=== PATIENT | male | born 1940 | race Caucasian/White ===

== ENCOUNTER 2019-10-16 18:33 | Inpatient (IN) | payer MEDICARE, SELFPAY | END 2019-10-18 18:35 | disposition home or self-care (01) | DRG 193 | PROVIDERS: Admitting Provider Internal Medicine; Emergency Provider Emergency Medicine; Family Provider Family Medicine; Visit Provider Internal Medicine | DX: J18.9 Pneumonia, unspecified organism (principal); G93.41 Metabolic encephalopathy; I10 Essential (primary) hypertension; E03.9 Hypothyroidism, unspecified; I25.10 Atherosclerotic heart disease of native coronary artery without angina pectoris; E78.5 Hyperlipidemia, unspecified; I25.2 Old myocardial infarction ==

== ENCOUNTER 2020-09-21 11:04 | Emergency (ER) | payer OTHER, MEDICARE, SELFPAY ==
[2020-09-21 11:15] VITALS: BP 128/85; PULSE 71; RESP 18; TEMP 36.2; O2SAT 95; BMI 26.4
--- NOTE | 2020-09-21 11:21 | W.ED.SKABFB ---
HPI - Skin/Abscess/Foreign Bdy General: Chief complaint: Skin/Abscess/Foreign Body Stated complaint: Left Hand Wound/Poss Spider Bite Time Seen by Provider: 09/21/20 11:21 Source: patient Mode of arrival: ambulatory Limitations: no limitations History of Present Illness: HPI narrative: Patient comes in with a crusting lesion to the left dorsal hand. Patient states that this occurred about 4 days ago. Patient had been seen at a clinic and started on some antibiotics. Patient reports that he went and seen the provider yesterday due to worsening symptoms to his hand at the area of injury and was switched from the previous antibiotics to doxycycline 100 mg twice a day. Patient denies much pain. Patient has good range of motion of the hand. Patient reports no other concerns. Patient believes he was bit by a spider. 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 Review of Systems General: Reports: 10 or more systems reviewed and unremarkable except in HPI and below Skin/Breast: Reports: changing lesions Physical Exam Const: COMMON NORMALS: no acute distress and patient oriented x3 GENERAL APPEARANCE: cooperative HENMT: COMMON NORMALS: normocephalic and Normal external nose present HEAD & SCALP: normal to inspection and normocephalic NOSE: Normal external nose present MOUTH: Normal oral and palatal mucosa present Eye: GENERAL EYE: appearance normal, both eyes and all related structures Neck/C-Spine: COMMON NORMALS: full ROM Chest: COMMONS NORMALS: normal inspection of the chest Resp: COMMON NORMALS: normal respiratory effort EFFORT & INSPECTION: Yes able to speak in complete sentences Cardio: COMMON NORMALS: regular rate and regular rhythm RATE: regular rate RHYTHM: regular rhythm GI: COMMON NORMALS: non-tender : COMMON NORMALS: Yes no CVA tenderness BLADDER/KIDNEY EXAM: Yes no CVA tenderness Back/Pelvis: COMMON NORMALS: no CVA tenderness and thoracic and lumbar spine normal to inspection Extremity: COMMON NORMALS: normal to inspection Neuro: COMMON NORMALS: patient oriented x3 and moves all extremities Psych: COMMON NORMALS: mental status grossly normal and cooperative Skin: NARRATIVE SKIN EXAM: Patient has a lesion to his left dorsal hand that is approximately 4 cm. Central lesion is dry and crusted with the edges slightly elevated with a vesicular eruption. Course Vital Signs: Vital signs: Vital Signs Temperature 97.2 F L 09/21/20 11:15 Pulse Rate 71 09/21/20 11:15 Respiratory Rate 18 09/21/20 11:15 Blood Pressure 128/85 09/21/20 11:15 Pulse Oximetry 95 09/21/20 11:15 MDM - Skin/Abscess/Foreign Bdy MDM Narrative: Medical decision making narrative: Patient presents with a changing lesion to the left dorsal hand. Is a poor centimeter crusted lesion with surrounding vesicular eruption. Vital signs are normal. Differential diagnosis includes but not limited to osteomyelitis, cellulitis with abscess, herpes zoster, herpes simplex, foreign body, contact dermatitis, localized reaction to insect bite. X-ray of the hand noted no bone involvement. Pretty sure patient probably has a brown recluse spider bite. We will give the patient some triamcinolone to use twice a day to the wound site. Recommended patient continue with the doxycycline. Discussed that the wound will probably most likely have to run its course recommended follow-up with seed and fertilizer specialist for further management. Patient reported understanding of care plan and need for follow-up. Discharge Plan Discharge Patient Disposition: Home Clinical Impression: Insect bite Qualifiers: Encounter type: subsequent encounter Site of insect bite: hand Laterality: left Qualified Code(s): S60.562D - Insect bite (nonvenomous) of left hand, subsequent encounter Condition: Stable Prescriptions: New triamcinolone acetonide 0.1 % cream 1 applic topical BID Qty: 30 RF: 0 Discharge Orders: Discharge ED (Routine); Ordered 09/21/20 Ordered By: Lee Almonte Referrals: Satya Bright MD [Primary Care Provider] - Patient Instructions: Brown Recluse Spider Bite (ED) Activity Restrictions/Additional Instructions: Follow-up with wound care for further treatment. Return to the emergency department for high fever or new concerns. Coding Level of Care Code ED Framing Inspector for Dorian Fwcesar Exam Comprehensive
--- NOTE | 2020-09-21 11:30 | XR_ITS ---
WS: [id number] Left hand, 4 views, 09/21/2020 Clinical Data: r/o osteomyelitis Comparison: None. Findings: No fractures or dislocations are seen. The soft tissues are unremarkable. The joint spaces are normal No bone destruction or erosion is seen. No evidence of osteomyelitis is present. There are periarticu lar calcifications seen at the left second MP joint, left third PIP joint and left fourth DIP joint XR/XR hand LT min 3V* [id number] Impression: Negative for osteomyelitis.
[2020-09-21 12:14] VITALS: RESP 18
--- NOTE | 2020-09-22 09:54 | DCPLANNER ---
manager of community relations had message to schedule a follow up appointment for patient with Wound Care. manager of community relations called Wound Care, spoke with Oly, gave clinic patients information. A follow up appointment was scheduled for Saturday, September 26, 2020 at 8:[address] Cotto. manager of community relations called patient and informed patient of the scheduled appointment.
--- NOTE | 2020-10-03 15:34 | DCPLANNER ---
Patient had a follow up appointment scheduled for 09.26.[address] Cotto - appointment was cancelled.
--- NOTE | 2020-10-03 15:41 | DCPLANNER ---
Patient had a follow up appointment scheduled for 09.26.20 with Wound Care - patient did attend appointment.
== END 2020-09-21 12:14 | disposition home or self-care (01) ==
PROVIDERS: Emergency Provider Nurse Practitioner Family; PCP Family Medicine
DX: S60.562A Insect bite (nonvenomous) of left hand, initial encounter (principal); W57.XXXA Bitten or stung by nonvenomous insect and other nonvenomous arthropods, initial encounter
CPT/HCPCS: 12345; 73130; 99281; 99282

== ENCOUNTER 2020-09-26 08:15 | Outpatient (CLI) | payer MEDICARE, SELFPAY | END 2020-09-26 08:16 | disposition home or self-care (01) | LOC: WOUND 08:17 | PROVIDERS: PCP Family Medicine; Visit Provider Thoracic Surgery (Cardiothoracic Vascular Surgery) | DX: L98.492 Non-pressure chronic ulcer of skin of other sites with fat layer exposed (principal) | CPT/HCPCS: 11042; 11045; 99212 ==

== ENCOUNTER 2020-10-03 14:31 | Emergency (ER) | payer MEDICARE, SELFPAY ==
[2020-10-03 14:45] VITALS: BP 80/52; PULSE 73; RESP 22; TEMP 36.5; O2SAT 95; BMI 26.4
--- NOTE | 2020-10-03 15:11 | XR_ITS ---
WS: [id number] XR chest 1V portable [id number] REASON FOR EXAM: dyspnea/cough FINDINGS: Status post coronary artery bypass surgery. Thoracic aorta and heart are normal for age. Old epicardial pacing wires. Ill-defined left retrocardiac lung opacities which may indicate early findings of pneumonitis. XR/XR chest 1V portable [id number] IMPRESSION: Possible early infiltrates of acute pneumonitis left lung as above.
--- NOTE | 2020-10-03 15:12 | ECG_ITS ---
[facility] Test Date: 2020-10-03 Pat Name: Kenneth Li Department: Room: Gender: Male Head Packager: : 1940 Requested By: Ivan Lee Order Number: [id number] Gricel MD: Brigette Marquez M.D. Measurements Intervals [place] Rate: 79 P: 38 MT: 170 QRS: 19 QRSD: 145 T: 65 QT: 400 QTc: 460 Interpretive Statements SINUS RHYTHM RIGHT BUNDLE BRANCH BLOCK [120+ ms QRS DURATION, UPRIGHT V1, 40+ ms S IN I/aVL/V4/V5/V6] Compared to ECG 10/17/2019 01:10:24 Myocardial infarct finding no longer present Electronically Signed On 10-03-2020 19:26:25 FINAL OPERATIONS TECHNICIAN by Brigette Marquez M.D. [id number]
[2020-10-03 15:24] LABS: Basophils % 0.3 %; Hematocrit 42.4 % (42.0-52.0); Hemoglobin 13.5 g/dL (11.7-16.6); Lymphocytes # 1.5 10^3/uL (0.8-4.8); Lymphocytes % 23.9 %; Mean Corpuscular HGB Conc 31.8 g/dL (30.0-36.0); Mean Corpuscular Hemoglobin 29.9 pg (28.0-34.0); Mean Corpuscular Volume 93.8 fL (80-94); Mean Platelet Volume 11.7 fL (7.4-10.4); Monocytes # 0.5 10^3/uL (0.2-0.9); Monocytes % 7.6 %; Neutrophils # 4.18 10^3/uL (1.8-7.7); Nucleated Red Blood Cells % 0 %; Platelet Count 159 10^3/cmm (130-400); Red Blood Count 4.52 10^6/uL (4.1-5.3); Red Cell Distribution Width 14.6 % (12.1-15.1); White Blood Count 6.2 10^3/uL (4.0-10.0)
[2020-10-03 15:35] LABS: Alanine Aminotransferase 32 U/L (0-41); Albumin Level 3.7 g/dL (3.5-5.2); Alkaline Phosphatase 143 IU/L (40-130); Anion Gap 14.6 (5-19); Aspartate Amino Transferase 48 U/L (0-40); Blood Urea Nitrogen 35 mg/dL (8-23); Calcium 9.4 mg/dL (8.5-10.5); Carbon Dioxide 28 mmol/L (22-29); Chloride 99 mmol/L (98-107); Globulin 3.5 g/dL (1.3-4.6); Glucose 108 mg/dL (65-115); Osmolality Calculated 293 mOsm/kg (285-295); Potassium 4.6 mmol/L (3.5-5.1); Sodium 137 mmol/L (136-145); Total Bilirubin 0.6 mg/dL (0.15-1.2); Total Protein 7.2 g/dL (6.6-8.7)
--- NOTE | 2020-10-03 15:36 | ED_ITS ---
HPI - SOB/Dyspnea General: Chief Complaint: Shortness of Breath/Dyspnea Stated Complaint: Chills/Poss Pneumonia Time Seen by Provider: 10/03/20 14:58 History of Present Illness: HPI Narrative: 80-year-old male presents emergency room. A little bit difficult to get pin down. He said for last 2 days he just generally not been feeling well he states he been going through a lot of things he begins to tell a story about his wood furnace about being dizzy when he bends over but that has completely resolved he denies chest pain he states the dizziness and the generally not feeling well has made him very depressed. He denies any abdominal pain denies any vomiting or diarrhea. Shortness of breath seems persistent says he has a minimally productive cough of mostly clear sputum. MD elicited complaint: shortness of breath and cough Pertinent past history: COPD Onset (ago): week(s) Context: anxiety Exacerbating factors: exertion and coughing Relieving factors: rest Known history of: COPD Associated symptoms: Reports chest congestion; Deny abdominal pain, chest pain, cough, diaphoresis, dizziness, extremity pain, fever(s), hemoptysis, lightheadedness, myalgias, nausea, orthopnea, palpitations, paresthesias, polydipsia, polyuria, rash or sense of impending doom Treatment prior to arrival: none Review of Systems Const: Denies: fever(s) or diaphoresis ENMT: Denies: throat pain, ear or mastoid pain, nasal discharge or nasal congestion Card: Denies: chest pain, palpitations, lightheadedness or orthopnea Resp: Reports: chest congestion; Denies: hemoptysis GI: Denies: abdominal pain or nausea : Denies: flank pain, dysuria, urinary frequency or urinary urgency Musc: Denies: extremity pain Skin/Breast: Denies: rash or pruritus Neuro: Denies: dizziness Endo: Denies: polyuria or polydipsia Physical Exam Const: COMMON NORMALS: no acute distress GENERAL APPEARANCE: cooperative and comfortable ORIENTATION/CONSCIOUSNESS: Yes awake, Yes oriented to person, Yes oriented to place and Yes oriented to time HENMT: COMMON NORMALS: normocephalic, atraumatic and hearing grossly normal bilaterally HEAD & SCALP: normocephalic and atraumatic Neck/C-Spine: COMMON NORMALS: no JVD Resp: COMMON NORMALS: normal respiratory effort, No retractions, No use of accessory muscles and clear to auscultation bilaterally AUSCULTATION: clear to auscultation bilaterally Cardio: COMMON NORMALS: no JVD, regular rate, regular rhythm and No murmurs present (Cardio) RATE: regular rate RHYTHM: regular rhythm GI: COMMON NORMALS: Soft to palpation and No hepatosplenomegaly present AUSCULTATION: Yes normoactive bowel sounds PALPATION: Yes Soft to palpation, No Tenderness to palpation present (GI), No Guarding due to palpation present (GI) and Yes No hepatosplenomegaly present Extremity: COMMON NORMALS: normal to inspection, capillary refill normal, no clubbing, cyanosis or edema, no calf tenderness and no pedal edema Neuro: SENSORIUM/ORIENTATION: Yes oriented to person, Yes oriented to place and Yes oriented to time Skin: COMMON NORMALS: no rashes or lesions noted GENERAL SKIN EXAM: no rashes or lesions noted Course Vital Signs: Vital signs: Vital Signs Temperature 97.7 F 10/03/20 14:45 Pulse Rate 73 10/03/20 14:45 Respiratory Rate 22 H 10/03/20 14:45 Blood Pressure 80/52 10/03/20 14:45 Pulse Oximetry 95 10/03/20 14:45 MDM - SOB/Dyspnea MDM Narrative: Medical decision making narrative: Patient Covid positive but faring very well he is only at most 2 to 4 days into his symptom course. Discussed with him monoclonal antibody infusion he wishes to proceed consent obtained discharge orders have been written he should monitor his oxygen saturation and follow-up tomorrow with his primary care doctor on a telehealth visit. If he has any worsening problems or difficulty breathing or his oxygen sats below fall below 90 return to the emergency room. Lab Data: Labs: Lab Results 10/03/20 10/03/20 10/03/20 Range/Units 15:08 15:08 15:34 WBC 6.2 (4.0-10.0) 10^3/ uL RBC 4.52 (4.1-5.3) 10^6/u L Hgb 13.5 (11.7-16.6) g/dL Hct 42.4 (42.0-52.0) % MCV 93.8 (80-94) fL MCH 29.9 (28.0-34.0) pg MCHC 31.8 (30.0-36.0) g/dL RDW 14.6 (12.1-15.1) % Plt Count 159 (130-400) 10^3/c mm MPV 11.7 H (7.4-10.4) fL Neut % (Auto) 68.0 % Lymph % (Auto) 23.9 % Taylor % (Auto) 7.6 % Eos % (Auto) 0.0 % Baso % (Auto) 0.3 % Neut # (Auto) 4.18 (1.8-7.7) 10^3/u L Lymph # (Auto) 1.5 (0.8-4.8) 10^3/u L Taylor # (Auto) 0.5 (0.2-0.9) 10^3/u L Eos # (Auto) 0.0 (0.0-0.8) 10^3/u L Baso # (Auto) 0.0 (0.0-0.1) 10^3/u L Nucleated RBC % (a uto) 0 % Nucleated RBCs # 0.0 /100WBC Specimen Type Arterial Sample Site Radial, right ABG pH 7.38 (7.35-7.45) ABG pCO2 40.3 (35-45) mmHg ABG pO2 66.4 L (80.0-100.0) mmH g ABG HCO3 24.1 (22-26) mmol/L ABG O2 Saturation 93.3 ABG Base Excess -1.0 (-2.0-2.0) mmol/ L Marcus Test Pos A-a O2 Gradient 4.3 L (5-10) mmHg Hematocrit 41.4 L (42-52) % Hgb O2 Saturation 91.7 L (95-100) % Carboxyhemoglobin 0.9 (0.4-20.1) %THgb Methemoglobin 0.8 (0.4-1.5) % Total Hemoglobin 13.5 L (14-18) g/dL Ionized Calcium 1.2 (1.1-1.4) mmol/L O2 Delivery Device Room air FiO2 21.0 % Federal Mediation Commissioner ID Amh Sodium 137 136.0 (136-145) mmol/L Potassium 4.6 4.2 (3.5-5.1) mmol/L Chloride 99 (98-107) mmol/L Carbon Dioxide 28 (22-29) mmol/L Anion Gap 14.6 (5-19) BUN 35 H (8-23) mg/dL Creatinine 1.6 H (0.7-1.2) mg/dL GFR Calculation Not Reportable Glucose 108 107.0 (65-115) mg/dL Calculated Osmolal ity 293 (285-295) mOsm/k g Calcium 9.4 (8.5-10.5) mg/dL Total Bilirubin 0.6 (0.15-1.2) mg/dL AST 48 H (0-40) U/L ALT 32 (0-41) U/L Alkaline Phosphata se 143 H (40-130) IU/L Total Protein 7.2 (6.6-8.7) g/dL Albumin 3.7 (3.5-5.2) g/dL Globulin 3.5 (1.3-4.6) g/dL Urine Color (Yellow) Urine Appearance (CLEAR) Urine pH (5-7) Ur Specific Gravit y (1.005-1.030) Urine Protein (Negative) Urine Glucose (UA) (Normal) Urine Ketones (Negative) Urine Blood (Negative) Urine Nitrate (Negative) Urine Bilirubin (Negative) Urine Urobilinogen (Negative) mg/dL Ur Leukocyte Tianna ase (Negative) Urine RBC (0-2) /hpf Ur Squamous Epith Cells (0-5) /hpf Amorphous Sediment Urine Bacteria (NONE) /hpf Hyaline Casts /lpf Urine Mucus /hpf SARS-CoV-2 Ag (Rap id) (Negative) 10/03/20 10/03/20 Range/Units 16:00 16:30 WBC (4.0-10.0) 10^3/ uL RBC (4.1-5.3) 10^6/u L Hgb (11.7-16.6) g/dL Hct (42.0-52.0) % MCV (80-94) fL MCH (28.0-34.0) pg MCHC (30.0-36.0) g/dL RDW (12.1-15.1) % Plt Count (130-400) 10^3/c mm MPV (7.4-10.4) fL Neut % (Auto) % Lymph % (Auto) % Taylor % (Auto) % Eos % (Auto) % Baso % (Auto) % Neut # (Auto) (1.8-7.7) 10^3/u L Lymph # (Auto) (0.8-4.8) 10^3/u L Taylor # (Auto) (0.2-0.9) 10^3/u L Eos # (Auto) (0.0-0.8) 10^3/u L Baso # (Auto) (0.0-0.1) 10^3/u L Nucleated RBC % (a uto) % Nucleated RBCs # /100WBC Specimen Type Sample Site ABG pH (7.35-7.45) ABG pCO2 (35-45) mmHg ABG pO2 (80.0-100.0) mmH g ABG HCO3 (22-26) mmol/L ABG O2 Saturation ABG Base Excess (-2.0-2.0) mmol/ L Marcus Test A-a O2 Gradient (5-10) mmHg Hematocrit (42-52) % Hgb O2 Saturation (95-100) % Carboxyhemoglobin (0.4-20.1) %THgb Methemoglobin (0.4-1.5) % Total Hemoglobin (14-18) g/dL Ionized Calcium (1.1-1.4) mmol/L O2 Delivery Device FiO2 % Federal Mediation Commissioner ID Sodium (136-145) mmol/L Potassium (3.5-5.1) mmol/L Chloride (98-107) mmol/L Carbon Dioxide (22-29) mmol/L Anion Gap (5-19) BUN (8-23) mg/dL Creatinine (0.7-1.2) mg/dL GFR Calculation Glucose (65-115) mg/dL Calculated Osmolal ity (285-295) mOsm/k g Calcium (8.5-10.5) mg/dL Total Bilirubin (0.15-1.2) mg/dL AST (0-40) U/L ALT (0-41) U/L Alkaline Phosphata se (40-130) IU/L Total Protein (6.6-8.7) g/dL Albumin (3.5-5.2) g/dL Globulin (1.3-4.6) g/dL Urine Color Dark yellow (Yellow) Urine Appearance Hazy A (CLEAR) Urine pH 5 (5-7) Ur Specific Gravit y 1.030 (1.005-1.030) Urine Protein Neg (Negative) Urine Glucose (UA) Norm (Normal) Urine Ketones 1+ H (Negative) Urine Blood Neg (Negative) Urine Nitrate Negative (Negative) Urine Bilirubin Neg (Negative) Urine Urobilinogen Norm (Negative) mg/dL Ur Leukocyte Tianna ase Negative (Negative) Urine RBC 0-4 H (0-2) /hpf Ur Squamous Epith Cells 0-4 H (0-5) /hpf Amorphous Sediment Not Reportable Urine Bacteria 2+ H (NONE) /hpf Hyaline Casts >100 H /lpf Urine Mucus 3+ /hpf SARS-CoV-2 Ag (Rap id) Positive H (Negative) Discharge Plan Discharge Patient Disposition: Home Clinical Impression: COVID-19 Condition: Stable Prescriptions: No Action atorvastatin 40 mg tablet 40 mg PO DAILY@0700 RF: 0 doxycycline hyclate 100 mg capsule 100 mg PO DAILY@0700 RF: 0 hydrocodone-acetaminophen 5-325 mg tablet 1 tab PO Q6H PRN (Reason: Pain) RF: 0 venlafaxine 150 mg capsule,extended release 24hr 150 mg PO DAILY@0700 RF: 0 levothyroxine 25 mcg tablet 25 mcg PO DAILY@0700 RF: 0 losartan 25 mg tablet 25 mg PO DAILY@0700 RF: 0 metoprolol tartrate 25 mg tablet 25 mg PO DAILY@0700 RF: 0 triamcinolone acetonide 0.1 % cream 1 applic topical BID@0700,1400 RF: 0 Discharge Orders: Discharge ED (Routine); Ordered 10/03/20 Ordered By: Ivan Gil Referrals: Satya Bright MD [Primary Care Provider] - Discharge Diet: Usual diet Activity Restrictions/Additional Instructions: Follow-up by telehealth visit with your primary care doctor tomorrow. You should maintain in self quarantine for 10 more days. Monitor your oxygen saturations closely, if they drop below 90 return to the emergency room. Coding Level of Care Code ED Siebel Architect for Dorian Fwd Exam Comprehensive
[2020-10-03 15:45] LABS: ABG PCO2 40.3 mmHg (35-45); ABG PH Result 7.38 (7.35-7.45); Alveolar-Arterial Oxygen Gradi 4.3 mmHg (5-10); Arterial Blood Gas Hematocrit 41.4 % (42-52); Blood Gas Allen Test Pos; Blood Gas Operator Identificat AMH; Blood Gas Sample Site Radial, right; Blood Gas Sample Type Arterial; Carboxyhemoglobin 0.9 %THgb (0.4-20.1); HCO3 ABG 24.1 mmol/L (22-26); HGB O2 Sat 91.7 % (95-100); Ionized Calcium Level - ABG 1.2 mmol/L (1.1-1.4); Methemoglobin 0.8 % (0.4-1.5); Oxygen Device ROOM AIR; Oxygen Saturation ABG 93.3; PO2 ABG 66.4 mmHg (80.0-100.0); Potassium Level - ABG 4.2 mmol/L (3.5-5.0); Total Hemoglobin 13.5 g/dL (14-18)
[2020-10-03] MEDS: sodium chloride 0.9% 1,000 ML 999 ML IV (16:23)
[2020-10-03 16:52] LABS: Add Urine Microscopic? YES; Bilirubin Urine Neg (Negative); Blood Urine Neg (Negative); Glucose Urine UA Norm (Normal); Ketones Urine 1+ (Negative); Leukocyte Esterase Urine Negative (Negative); Nitrate Urine Negative (Negative); Protein Urine Neg (Negative); Urine Appearance Hazy (CLEAR); Urine Color Dark Yellow (Yellow); Urobilinogen Urine Norm (Negative); pH Urine 5 (5-7)
[2020-10-03 16:58] LABS: Add Urine Culture? No; Bacteria Urine 2+ /hpf; Hyaline Casts Urine >100 /lpf; Mucus Urine 3+ /hpf; RBC Urine 0-4 /hpf (0-2); Squamous Epithelial Cell Urine 0-4 /hpf (0-5)
[2020-10-03 16:59] LABS: SARS Covid-2 Antigen Positive (Negative)
[2020-10-03 18:45] VITALS: BP 109/71; PULSE 74; RESP 20; O2SAT 95
[2020-10-03 19:00] VITALS: BP 122/64; PULSE 73; RESP 18; O2SAT 94
[2020-10-03 19:57] VITALS: BP 135/72; PULSE 78; RESP 18; TEMP 36.8; O2SAT 95
[2020-10-03 21:04] VITALS: BP 122/63; PULSE 75; RESP 16; O2SAT 92
[2020-10-03 21:40] VITALS: BP 118/63; PULSE 78; RESP 18; O2SAT 92
--- NOTE | 2020-10-04 13:59 | DCPLANNER ---
Addendum entered by Jalyn Chaves 10/17/20 14:06: salary manager called to check on patient after the BAM infusion. Patient stated that he is feeling much better, he is feeling pretty good. Patient stated that he is still tired and weak. Patient has a follow up appointment with Dr. Bright later today. Patient has not been admitted to any hospital. Addendum entered by Jalyn Chaves 10/09/20 13:50: Patient stated that she is feeling better today than yesterday. Patient stated that she does not have a cough, no fever, no diarrhea. Patient stated that overall he is feeling much better than before. Original Note: salary manager had message that patient received the BAM infusion. salary manager called patient to check on him, spoke with patients . salary manager was told that patient tolerated the infusion well. That before the infusion patient had a slight fever, he had a cough and was coughing up stuff. Patients stated that patient was weak, and that he had a hard time breathing. After the infusion patient stated that he had diarrhea some. Patient stated that he feels about the same as he was before. He is not running a fever at this time. Patient has a follow up appointment scheduled for Saturday, October 17, 2020 at 3:[address] Bright. salary manager called and gave patients the appointment information.
== END 2020-10-03 21:41 | disposition home or self-care (01) ==
PROVIDERS: Emergency Provider Family Medicine; PCP Family Medicine
DX: U07.1 COVID-19 (principal)
CPT/HCPCS: 12345; 36600; 71045; 80051; 80053; 81001; 82330; 82805; 83605; 85025; 87040; 87205; 87426; 93005; 96365; 99282; 99283; J7030; J7050

== ENCOUNTER 2020-12-27 09:07 | Outpatient (CLI) | payer MEDICARE, SELFPAY ==
--- NOTE | 2020-12-27 09:19 | CT_ITS ---
WS: [id number] CT HEAD WITH AND WITHOUT CONTRAST HISTORY: VISUAL HALLUCINATIONS TECHNIQUE: Noncontrast 2.5 mm axial images obtained from the vertex to the skull base. Additional fatuma ging performed at 2.5 mm axial images status post IV contrast. Bone and soft tissue windows are revie wed. All CT scans at [facility] use at least one of these dose optimization techniques: a utomated exposure control; mA and/or kV adjustment per patient size (includes targeted exams where do se is matched to clinical indication); or iterative reconstruction. CONTRAST: Omnipaque 300; 95 mL IV. DLP: 1851.82 mGycm COMPARISON: 10/16/2019 No acute intracranial hemorrhage, edema or midline shift. Mild atrophy and mild chronic microvascular ischemic disease. No prior infarcts or lacunar lungs. No enhancing mass or vascular malformation is appreciated. Dural venous sinuses are normally enhancing. 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 LEFT vertebral artery is patent. Heavy calcification through the intracranial cavernous and suprac linoid carotid arteries. No occlusions or aneurysms are identified. Paranasal sinuses as visualized: Clear. Mastoid air cells: Clear. Calvarium and scalp: Intact. CT/CT head wo/w con [id number] IMPRESSION: 1. No acute intracranial hemorrhage or mass. 2. Mild age-related atrophy and chronic ischemic disease. No prior infarcts. 3. Advanced atherosclerosis intracranial carotid arteries.
[2020-12-27 10:04] LABS: Blood Urea Nitrogen 10 mg/dL (8-23)
[2020-12-27] MEDS: iohexol 300 mg/mL 100 mL Btl IV (10:15)
== END 2020-12-27 09:08 | disposition home or self-care (01) ==
PROVIDERS: PCP Family Medicine; Visit Provider Family Medicine
DX: R44.1 Visual hallucinations (principal); I67.82 Cerebral ischemia; G31.9 Degenerative disease of nervous system, unspecified; I65.23 Occlusion and stenosis of bilateral carotid arteries
CPT/HCPCS: 70470; 82565; 84520; Q9967

== ENCOUNTER 2021-08-25 13:23 | Emergency (ER) | payer MEDICARE, SELFPAY ==
[2021-08-25 13:31] VITALS: BP 122/71; PULSE 68; RESP 16; TEMP 36.5; O2SAT 98
--- NOTE | 2021-08-25 13:34 | W.ED.WOUNDLC ---
HPI - Wound/Laceration General: Chief Complaint: Wound/Laceration Stated Complaint: ABSCESS TO L MIDDLE FINGER Time Seen by Provider: 08/25/21 13:26 History of Present Illness: HPI narrative: Patient is a 81-year-old male comes to the ED with pain in left hand. Patient has a lesion on the dorsal aspect of third digit. Patient says 2 days ago it was small little puncture wound. Over the past 2 days it has gotten bigger, more red and now there is some tissue breakdown in the center of it along with some drainage. Patient says he had a similar wound like this before and it was from a spider bite. He thinks a spider rash possibly what caused this lesion. He has mild pain and he saw his PCP yesterday and was put on some cephalexin. Wound is gotten worse yesterday. He has been taking his cephalexin as prescribed and has taken about a daily dose of his antibiotic. Associated symptoms: Denies chills, fever(s), nausea or vomiting Review of Systems Const: Denies: fever(s), chills or fatigue Eyes: Denies: change in vision or eye discomfort ENMT: Denies: throat pain, odynophagia, nasal discharge or nasal congestion Card: Denies: chest pain, palpitations, edema, swelling of feet/ankles, dyspnea on exertion or orthopnea Resp: Denies: dyspnea, productive cough or non-productive cough GI: Denies: abdominal pain, nausea, vomiting, diarrhea, constipation or hematochezia : Denies: flank pain, difficulty urinating, dysuria or hematuria Musc: Denies: neck pain, back pain or extremity swelling Skin/Breast: Reports: new lesions (new lesion/wound on 3rd digit of left hand); Denies: rash Neuro: Denies: headache(s), numbness in extremities or weakness in extremities Physical Exam Const: COMMON NORMALS: no acute distress, patient oriented x3, healthy appearing and alert GENERAL APPEARANCE: cooperative and comfortable HENMT: COMMON NORMALS: normocephalic HEAD & SCALP: normocephalic MOUTH: Normal oral and palatal mucosa present THROAT: posterior oropharynx normal and uvula midline Neck/C-Spine: COMMON NORMALS: supple GENERAL: Yes normal visual inspection Resp: COMMON NORMALS: normal respiratory effort, No retractions, No use of accessory muscles and clear to auscultation bilaterally AUSCULTATION: clear to auscultation bilaterally Cardio: COMMON NORMALS: regular rate, regular rhythm, S1 normal heart sound present, S2 normal heart sound present, No gallops present (Cardio), No clicks present (Cardio), No murmurs present (Cardio) and Peripheral pulses 2+ throughout RATE: regular rate RHYTHM: regular rhythm HEART SOUNDS: S1 normal heart sound present and S2 normal heart sound present PERIPHERAL PULSES: Peripheral pulses 2+ throughout GI: COMMON NORMALS: Normal to inspection, nondistended, normoactive bowel sounds present, Soft to palpation, non-tender and no masses PALPATION: Yes Soft to palpation : COMMON NORMALS: Yes no CVA tenderness BLADDER/KIDNEY EXAM: Yes no CVA tenderness Back/Pelvis: COMMON NORMALS: no CVA tenderness Extremity: NARRATIVE EXTREMITY EXAM: Left hand?third digit?dorsal aspect of third digit. Central ulcer with surrounding erythema and warmth. There is some tissue breakdown at the center of wound with some clear purulent drainage noted. Findings suggestive of possible spider bite with cellulitis developing. Neuro: COMMON NORMALS: patient oriented x3 SENSORIUM/ORIENTATION: Yes alert Skin: GENERAL SKIN EXAM: dry skin Course Vital Signs: Vital signs: Vital Signs Temperature 97.7 F 08/25/21 13:31 Pulse Rate 68 08/25/21 13:31 Respiratory Rate 16 08/25/21 13:31 Blood Pressure 122/71 08/25/21 13:31 Pulse Oximetry 98 08/25/21 13:31 MDM - Wound/Laceration MDM Narrative: Medical decision making narrative: Patient is 81-year-old male who appears to have a spider bite on his third digit of left hand. Lesion is an ulcer with some central tissue breakdown and surrounding erythema and warmth suggesting of some cellulitis developing. Some clear and purulent drainage noted as well. Patient was seen by his PCP and was put on cephalexin has been taking it for the past day. Wound has been getting worse. Patient was given dose of IM Rocephin while here in the ED. He is then discharged home with a prescription for Bactrim. I placed an order with case management for patient to be referred to wound care clinic for follow-up and further management of spider bite wound. Return to ED precautions given. Patient understood and agreed with plan. Discharge Plan Discharge Patient Disposition: Home Clinical Impression: Cellulitis of finger of left hand Spider bite Qualifiers: Encounter type: initial encounter Injury intent: accidental or unintentional Qualified Code(s): T63.301A - Toxic effect of unspecified spider venom, accidental (unintentional), initial encounter Condition: Stable Prescriptions: New Bactrim DS 800-160 mg tablet 1 tab PO BID 10 Days Qty: 20 RF: 0 No Action atorvastatin 40 mg tablet 40 mg PO DAILY@0700 RF: 0 doxycycline hyclate 100 mg capsule 100 mg PO DAILY@0700 RF: 0 hydrocodone-acetaminophen 5-325 mg tablet 1 tab PO Q6H PRN (Reason: Pain) RF: 0 venlafaxine 150 mg capsule,extended release 24hr 150 mg PO DAILY@0700 RF: 0 levothyroxine 25 mcg tablet 25 mcg PO DAILY@0700 RF: 0 losartan 25 mg tablet 25 mg PO DAILY@0700 RF: 0 metoprolol tartrate 25 mg tablet 25 mg PO DAILY@0700 RF: 0 triamcinolone acetonide 0.1 % cream 1 applic topical BID@0700,1400 RF: 0 Discharge Orders: Discharge ED (Routine); Ordered 08/25/21 Ordered By: Nathaniel Pop Referrals: Satya Bright MD [Primary Care Provider] - Discharge Diet: Regular Discharge Activity: Resume usual activity Patient Instructions: Cellulitis (ED), Brown Recluse Spider Bite (ED) Activity Restrictions/Additional Instructions: Follow-up with medical provider as directed. Case management will be contacting you in the next several days set up an appointment with wound care clinic. Take medications as prescribed. Return to the ER or your medical provider if condition worsens. Please read and understand discharge instructions. Thank you for choosing [facility] for your healthcare needs today. Please realize this is an emergency room and that we are providing you with a medical screening exam and this may not be complete and all inclusive of all the testing and or work up that you may need to determine your ailment or severity of your illness. It is very important that you follow up as instructed or that you return to the Emergency Department should you have concerns or if your condition changes or worsens in any way. Coding Level of Care Code ED Range Feeder for Dorian Fwcesar Exam Comprehensive
[2021-08-25] MEDS: cefTRIAXone 1,000 MG in lidocaine 1% 2.1 ML 1 MG IM (14:09)
--- NOTE | 2021-08-25 14:09 | PC.NURSE ---
Pt arrived via POV from home with his . Pt states 2 days ago his noticed a small slightly open/scabbed area to his 3rd digit of his left hand. Pt states he has no idea what happened since he does not remember hitting it or doing anything specifically to the finger that would cause irritation to his finger. Pt A/O, pt denies any n/v, no fever. States there is only pain when he moves the finger or touches it.
--- NOTE | 2021-08-27 15:25 | DCPLANNER ---
transport manager had message to schedule a follow up appointment for patient with Wound Care. transport manager called the Wound Care clinic, spoke with Oly, gave clinic patients information. A follow up appointment was scheduled for , August 30, 2021 at 8:[address] Albarado at [facility]. transport manager called patient and spoke with patients , gave her the appointment information.
--- NOTE | 2021-11-11 15:38 | DCPLANNER ---
Patient had a follow up appointment scheduled with Wound Care - patient did attend appointment.
== END 2021-08-25 14:53 | disposition home or self-care (01) ==
PROVIDERS: Emergency Provider Physician Assistant; PCP Family Medicine
DX: L03.012 Cellulitis of left finger (principal); T63.301A Toxic effect of unspecified spider venom, accidental (unintentional), initial encounter
CPT/HCPCS: 87070; 87075; 87205; 96372; 99283; J0696

== ENCOUNTER 2021-08-30 08:17 | Outpatient (CLI) | payer MEDICARE, SELFPAY | END 2021-08-30 08:18 | disposition home or self-care (01) | LOC: WOUND 08:18 | PROVIDERS: PCP Family Medicine; Visit Provider Emergency Medicine | DX: L98.491 Non-pressure chronic ulcer of skin of other sites limited to breakdown of skin (principal); I10 Essential (primary) hypertension; Z87.891 Personal history of nicotine dependence | CPT/HCPCS: 97597; 99203; G0463 ==

== ENCOUNTER 2021-09-11 08:06 | Outpatient (CLI) | payer MEDICARE, SELFPAY | END 2021-09-11 08:07 | disposition home or self-care (01) | LOC: WOUND 08:07 | PROVIDERS: PCP Family Medicine; Visit Provider Nurse Practitioner Family | DX: I96 Gangrene, not elsewhere classified (principal); L98.491 Non-pressure chronic ulcer of skin of other sites limited to breakdown of skin; I10 Essential (primary) hypertension; Z87.891 Personal history of nicotine dependence | CPT/HCPCS: 11042 ==

== ENCOUNTER 2021-09-18 08:42 | Emergency (ER) | payer MEDICARE, SELFPAY ==
[2021-09-18 08:49] VITALS: BP 92/46; PULSE 73; RESP 18; TEMP 36.6; O2SAT 98; BMI 25.4
--- NOTE | 2021-09-18 08:51 | W.ED.GENADLT ---
HPI - General Adult General: Chief complaint: General Medical Stated complaint: ITCHY ALL OVER Time Seen by Provider: 09/18/21 08:50 History of Present Illness: HPI narrative: 81-year-old male presents emergency room complaining of pruritic skin eruption last night but is completely resolved at this time he has no new medications no exposure to anything new or different that he is aware of. He is not any difficulty breathing swallowing etc. He denies any problems at this time. Onset (ago): hour(s) Location: head, face, neck, chest, back, abdomen, left, right, upper extremity and lower extremity Severity: mild Quality: other (Itching) Relieving factors: none Exacerbating factors: none Associated symptoms: Deny chest pain, confusion, cough, diaphoresis, decreased appetite, dyspnea, fevers/chills, headache(s), malaise, nausea, rash, palpitations, seizures, short of breath, syncope, vomiting or weakness Treatments prior to arrival: none Review of Systems Const: Denies: malaise or diaphoresis ENMT: Denies: throat pain, ear or mastoid pain, nasal discharge or nasal congestion Card: Denies: chest pain, palpitations or syncope Resp: Denies: dyspnea GI: Denies: nausea or vomiting : Denies: flank pain, dysuria, urinary frequency or urinary urgency Skin/Breast: Denies: rash Neuro: Denies: headache(s) or confusion Physical Exam Const: COMMON NORMALS: no acute distress GENERAL APPEARANCE: cooperative and comfortable ORIENTATION/CONSCIOUSNESS: Yes awake, Yes oriented to person, Yes oriented to place and Yes oriented to time HENMT: COMMON NORMALS: normocephalic, atraumatic, hearing grossly normal bilaterally, external ears normal, EAC's normal, TM's normal bilaterally, Normal nasal mucous membranes and turbinates present, moist oral mucous membranes and oropharynx normal HEAD & SCALP: normocephalic and atraumatic NOSE: Normal nasal mucous membranes and turbinates present EXTERNAL EAR: Yes external ears normal EXTERNAL AUDITORY CANAL: EAC's normal TYMPANIC MEMBRANE: TM's normal bilaterally Eye: COMMON NORMALS: Equal, round and reactive pupils present, EOMs intact bilaterally, conjunctivae normal and no scleral icterus CONJUNCTIVA: Yes conjunctivae normal PUPIL: Yes Equal, round and reactive pupils present Neck/C-Spine: COMMON NORMALS: full ROM, no lymphadenopathy, supple and no JVD Resp: COMMON NORMALS: normal respiratory effort, No retractions, No use of accessory muscles and clear to auscultation bilaterally AUSCULTATION: clear to auscultation bilaterally Cardio: COMMON NORMALS: no JVD, regular rate, regular rhythm and No murmurs present (Cardio) RATE: regular rate RHYTHM: regular rhythm GI: COMMON NORMALS: Soft to palpation and No hepatosplenomegaly present AUSCULTATION: Yes normoactive bowel sounds PALPATION: Yes Soft to palpation, No Tenderness to palpation present (GI), No Guarding due to palpation present (GI) and Yes No hepatosplenomegaly present Extremity: COMMON NORMALS: normal to inspection, capillary refill normal, no clubbing, cyanosis or edema, no calf tenderness and no pedal edema Neuro: SENSORIUM/ORIENTATION: Yes oriented to person, Yes oriented to place and Yes oriented to time Skin: COMMON NORMALS: no rashes or lesions noted GENERAL SKIN EXAM: no rashes or lesions noted Course Vital Signs: Vital signs: Vital Signs Temperature 97.9 F 09/18/21 08:49 Pulse Rate 80 09/18/21 09:33 Respiratory Rate 17 09/18/21 09:33 Blood Pressure 94/48 09/18/21 09:33 Pulse Oximetry 93 09/18/21 09:33 MDM - General Adult MDM Narrative: Medical decision making narrative: Normal skin exam no signs or symptoms at this time discharge home can use [id number] cetirizine as needed return if has further problems otherwise follow-up with primary care. Discharge Plan Discharge Patient Disposition: Home Clinical Impression: Skin pruritus Condition: Stable Prescriptions: New cetirizine 10 mg tablet 10 mg PO BID PRN (Reason: allergy symptoms) Qty: 30 RF: 0 No Action atorvastatin 40 mg tablet 40 mg PO DAILY@0700 RF: 0 doxycycline hyclate 100 mg capsule 100 mg PO DAILY@0700 RF: 0 hydrocodone-acetaminophen 5-325 mg tablet 1 tab PO Q6H PRN (Reason: Pain) RF: 0 venlafaxine 150 mg capsule,extended release 24hr 150 mg PO DAILY@0700 RF: 0 levothyroxine 25 mcg tablet 25 mcg PO DAILY@0700 RF: 0 losartan 25 mg tablet 25 mg PO DAILY@0700 RF: 0 metoprolol tartrate 25 mg tablet 25 mg PO DAILY@0700 RF: 0 triamcinolone acetonide 0.1 % cream 1 applic topical BID@0700,1400 RF: 0 Discharge Orders: Discharge ED (Routine); Ordered 09/18/21 Ordered By: Ivan Gil Referrals: Satya Bright MD [Primary Care Provider] - Patient Instructions: Opioid Safety Coding Level of Care Code ED Flight Operations Manager for Dorian Marie
[2021-09-18 08:59] VITALS: BP 92/46; PULSE 73; RESP 17; O2SAT 93
[2021-09-18 09:33] VITALS: BP 94/48; PULSE 80; RESP 17; O2SAT 93
== END 2021-09-18 09:37 | disposition home or self-care (01) ==
PROVIDERS: Emergency Provider Family Medicine; PCP Family Medicine
DX: L29.9 Pruritus, unspecified (principal)
CPT/HCPCS: 99283

== ENCOUNTER 2021-09-20 09:57 | Outpatient (CLI) | payer MEDICARE, SELFPAY | END 2021-09-20 09:58 | disposition home or self-care (01) | LOC: WOUND 09:58 | PROVIDERS: PCP Family Medicine; Visit Provider Emergency Medicine | DX: S60.463A Insect bite (nonvenomous) of left middle finger, initial encounter (principal); W57.XXXA Bitten or stung by nonvenomous insect and other nonvenomous arthropods, initial encounter; Z87.891 Personal history of nicotine dependence | CPT/HCPCS: 11042 ==

== ENCOUNTER 2021-09-27 15:05 | Outpatient (CLI) | payer MEDICARE, SELFPAY | END 2021-09-27 15:06 | disposition home or self-care (01) | LOC: WOUND 15:07 | PROVIDERS: PCP Family Medicine; Visit Provider Emergency Medicine | DX: Z09 Encounter for follow-up examination after completed treatment for conditions other than malignant neoplasm (principal); Z87.891 Personal history of nicotine dependence | CPT/HCPCS: G0463 ==

== ENCOUNTER 2021-12-06 06:00 | Outpatient (RCR) | payer MEDICARE, SELFPAY | END 2021-12-17 23:59 | disposition home or self-care (01) | LOC: SOT 06:00 | PROVIDERS: PCP Family Medicine; Referring Provider Family Medicine; Visit Provider Family Medicine | DX: M24.541 Contracture, right hand (principal) | CPT/HCPCS: 97165; L3923 ==

== ENCOUNTER 2022-02-08 14:30 | Outpatient (CLI) | payer MEDICARE, SELFPAY ==
--- NOTE | 2022-02-08 14:48 | MRR_ITS ---
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 Patient unable to extend fingers for 5 months since fall. TECHNIQUE: Imaging protocol: MR of the Right upper extremity without contrast. Exam focused on the hand. COMPARISON: CR XR hand RT min 3V* [id number] 12/08/2020 9:08 AM FINDINGS: Bones and cartilage: A patchy area of bone marrow edema like signal is noted in the subchondral distal radius region, likely reactive edema to cartilage loss. A similar finding is also noted in the proximal trapezium. A tiny subchondral cyst is also seen in the medial proximal aspect of the tiquetrum. No discrete fracture line or cortical displacement is identified. Joint spaces: Small carpal and distal radial ulna joint effusions are present. There is also mild fluid distention deep to the flexor tendon sheaths in the distal forearm, just proximal to the carpal tunnel. However no fluid distension, significant synovitis or mass/ganglion is seen within the carpal tunnel itself. There is mild-moderate cartilage loss involving the 1st, 3rd through 5th MCP joints, likely on the basis of degenerative joint disease. Moderate degenerative joint disease is also seen involving multiple IP joints. No obvious bony erosions are identified. Collateral ligaments of digits: Unremarkable. No evidence of tear. Flexor compartment tendons: Assessment of the distal flexor tendons within multiple digits is somewhat limited due to significant motion artifacts however no large tendon tear/retraction or obvious tenosynovitis is otherwise identified. No obvious soft tissue mass, significant inflammatory response or nodular thickening of the palmar aponeurosis or along the flexor tendon sheaths. Extensor compartment tendons: Unremarkable. No grows evidence of tear or tenosynovitis. Muscles: Unremarkable. Soft tissues: See Joint spaces finding. Poorly visualized triangular fibrocartilage and intrinsic wrist ligaments. MR/MR hand RT wo con* [id number] IMPRESSION: 1. 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 Nonspecific small joint effusions in the distal radioulnar joint and carpal joints. No acute fracture, dislocation or obvious bony erosions. 2. Nonspecific fluid effusion deep to the flexor tendons in the distal forearm, just proximal to the carpal tunnel which may represent tenosynovitis. No significant fluid, ganglion cyst/mass or tenosynovitis in the carpal tunnel or digits. 3. Suboptimal assessment of the distal flexor and and extensor tendons with no obvious tear or significant tenosynovitis. No obvious large nodular thickening of the aponeurosis or along the flexor tendon sheath to suggest Dupuytren contracture.
== END 2022-02-08 14:31 | disposition home or self-care (01) ==
LOC: RAD 14:44
PROVIDERS: PCP Family Medicine; Visit Provider Family Medicine
DX: M24.541 Contracture, right hand (principal)
CPT/HCPCS: 73218

== ENCOUNTER → 2022-02-21 14:18 | Outpatient (BNVA) | payer OTHER, SELFPAY | PROVIDERS: PCP Family Medicine; Visit Provider Internal Medicine Cardiovascular Disease | DX: I25.10 Atherosclerotic heart disease of native coronary artery without angina pectoris (principal); I10 Essential (primary) hypertension; I45.10 Unspecified right bundle-branch block; Z95.1 Presence of aortocoronary bypass graft; Z87.891 Personal history of nicotine dependence | CPT/HCPCS: 99204 ==

== ENCOUNTER 2022-03-27 09:40 | Emergency (ER) | payer OTHER, SELFPAY ==
--- NOTE | 2022-03-27 10:01 | XR_ITS ---
WS: [id number] Exam: XR finger LT min 2V [id number] Date/Time of Exam: 03/27/2022 10:01 AM Reason For Exam: pain swelling The index finger is targeted for evaluation. No fracture or dislocation. Degenerative changes in the IP joints. Soft tissue swelling along the base of the index finger. 2 mm metallic soft tissue foreign body seen along the second metacarpal head. XR/XR finger LT min 2V [id number] IMPRESSION: 1. Soft tissue injury of the index finger but no fracture or dislocation. 2. Degenerative changes. 2 mm metallic soft tissue foreign body seen along the distal second metacarpal.
[2022-03-27 11:06] VITALS: BP 99/63; PULSE 61; RESP 13; TEMP 36.4; O2SAT 94; BMI 24.4
--- NOTE | 2022-03-27 11:57 | ED_ITS ---
HPI - Extremity Problem General: Chief complaint: Extremity Problem,Nontraumatic Stated complaint: swollen finger on left hand/soreness Time Seen by Provider: 03/27/22 10:01 Source: patient Mode of arrival: ambulatory Limitations: no limitations History of Present Illness: Patient is a nice 81-year-old male who presents to ED today with a complaint of a sore to his left index finger that he has had ov er the past 3 days. Patient states sore initially looked like a small pimple . He states he was seen at [facility] and they unroofed the vesicle and drained it and placed him on antibiotics. Patient states since then the lesion has continued to worsen. He has not noticed uniform swelling to his digit. He maintains full range of motion. No penetrating injury or trauma. Patient denies concern for foreign bodies. MD Complaint: extremity pain and other (skin lesion) Onset (ago): day(s) Pain Consistency: constant Location: left and upper extremity (hand/finger) Radiation: none Relieving factors: nothing Exacerbating factors: nothing Associated symptoms: Reports no associated symptoms; Deny fever(s) Review of Systems Const: Denies: fever(s), chills, body aches, fatigue or malaise Musc: Reports: extremity pain (L index finger) and extremity swelling (L index finger) Skin/Breast: Reports: other (skin lesion to L index finger) Neuro: Denies: numbness in extremities or sensory changes [facility] ED PFSH: Medical History Depression Hyperlipidemia Hypertension Hypothyroidism RBBB Surgical History S/P CABG x 3 Social History Smoking and tobacco status: former smoker Physical Exam Const: COMMON NORMALS: no acute distress, average body habitus, patient oriented x3, no limitations, healthy appearing, alert and well nourished Extremity: GENERAL: Yes normal exam except as noted LEFT UPPER EXTREMITY: Yes hand & digits OTHER: pt has a quarter sized hemorrhagic lesion to the radial aspect of his L index finger w/o surrounding erythema/cellulitis; there is no active drainage; no signs of an infectious tenosynovitis Neuro: COMMON NORMALS: patient oriented x3, moves all extremities, no focal motor deficits and no sensory deficits noted SENSORIUM/ORIENTATION: Yes alert Course Vital Signs: Vital signs: Vital Signs Temperature 97.6 F 03/27/22 11:06 Pulse Rate 61 03/27/22 11:06 Respiratory Rate 13 03/27/22 11:06 Blood Pressure 99/63 03/27/22 11:06 Pulse Oximetry 94 03/27/22 11:06 MDM - Extremity (Nontraumatic) Medical Decision Making XR showing chronic changes-nothing acute. Commented on metallic fb but this was present on films in Sep 2020. Looking at previous documentation this appears to be the third time patient has had similar like lesions to the left hand. 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 Patient has seen at wound care previously for the last 2 lesions and they were successful in allowing them to heal. I think that would be the best course of action at this time. He was placed on doxycycline and mupirocin a few days ago. Recommend he continue this therapy as well. Referral has been placed for case management. Lab Data Radiology Impressions Finger X-Ray 03/27/22 10:01 IMPRESSION: 1. Soft tissue injury of the index finger but no fracture or dislocation. 2. Degenerative changes. 2 mm metallic soft tissue foreign body seen along the distal second metacarpal. Discharge Plan Discharge Patient Disposition: Home Clinical Impression: Finger lesion Condition: Stable Prescriptions: No Action aspirin [Adult Low Dose Aspirin] 81 mg tablet,delayed release (DR/EC) 81 mg PO DAILY 0RF ascorbic acid (vitamin C) 500 mg tablet 500 mg PO DAILY 0RF folic acid 1 mg tablet 1 mg PO DAILY 0RF bupropion HCl 200 mg tablet sustained-release 12 hr 200 mg PO BID 0RF atorvastatin 40 mg tablet 40 mg PO DAILY@0700 0RF hydrocodone-acetaminophen 5-325 mg tablet 1 tab PO Q6H PRN (Reason: Pain) 0RF levothyroxine 25 mcg tablet 25 mcg PO DAILY@0700 0RF losartan 25 mg tablet 25 mg PO DAILY@0700 0RF metoprolol tartrate 25 mg tablet 25 mg PO DAILY@0700 0RF cetirizine 10 mg tablet 10 mg PO BID PRN (Reason: allergy symptoms) Qty: 30 0RF Discharge Orders: Discharge ED (Routine); Ordered 03/27/22 Ordered By: Nan Singh Referrals: Satya Bright MD [Primary Care Provider] - Activity Restrictions/Additional Instructions: I want you to continue taking your doxycycline and mupirocin ointment as you are originally prescribed. I have placed a referral for you to see our critical care specialist team as you have seen them previously for other hand/finger wounds and they have been successful in allowing these to heal. You should hear from case management shortly to set you up with this appointment. Coding Level of Care Code ED Retail Loss Prevention Investigator for Chg Fwd Exam Problem Focused
--- NOTE | 2022-03-28 11:32 | DCPLANNER ---
Addendum entered by Jalyn Chaves 04/07/22 06:45: Patient had a follow up appointment scheduled for 04.01.22 with Wound Care - patient did attend appointment. Addendum entered by Jalyn Chaves 03/29/22 12:34: Patient has a follow up appointment scheduled for Friday, April 01, 2022 at 1:[address] Cotto at Wound Care. Clinic will call patient with appointment information. Original Note: wealth management manager had message to schedule a follow up appointment for patient with Wound Care. wealth management manager sent patients information to the front office staff at Wound Care. Patients information will be printed and reviewed. Clinic will call patient with appointment information.
== END 2022-03-27 12:39 | disposition home or self-care (01) ==
PROVIDERS: Emergency Provider Physician Assistant; PCP Family Medicine
DX: L98.9 Disorder of the skin and subcutaneous tissue, unspecified (principal); M79.645 Pain in left finger(s); M79.89 Other specified soft tissue disorders
CPT/HCPCS: 73140; 99283

== ENCOUNTER 2022-04-01 10:33 | Emergency (ER) | payer OTHER, SELFPAY ==
[2022-04-01 10:39] VITALS: BP 153/84; PULSE 64; RESP 18; TEMP 36.4; O2SAT 98; BMI 24.4
--- NOTE | 2022-04-01 11:17 | W.ED.SKABFB ---
HPI - Skin/Abscess/Foreign Bdy General: Chief complaint: Skin/Abscess/Foreign Body Stated complaint: Bite on his Left index finger Time Seen by Provider: 04/01/22 10:45 Source: patient Mode of arrival: ambulatory Limitations: no limitations History of Present Illness: Patient is an 81-year-old male who presents to ED today for his lesion to his left index finger. I personally saw patient approximately 5 days ago for the lesion. At that point he had been placed on doxycycline and mupirocin ointment. We agreed for him to continue these medications. This makes a third similar lesion on his left hand and finger over the past 1 to 2 years. The other 2 lesions were treated successfully with debridement and wound care at our local wound care clinic thus a referral was made to help treat this lesion. He has an appointment with them at 1:00 today. He states he only came to the ED so I could visualize the lesion before he went to wound care. Patient does state the lesion has worsened since his visit 5 days ago. MD complaint: lesion Onset (ago): day(s) Tetanus up to date: yes Location: L hand Pain Consistency: constant Context: none Associated symptoms: Deny chills or fever(s) Treatments prior to arrival: antibiotic Review of Systems Const: Denies: fever(s), chills, body aches, fatigue or malaise Musc: Reports: extremity pain (L index finger) and extremity swelling (L index finger) [facility] ED PFSH: Medical History Depression Hyperlipidemia Hypertension Hypothyroidism RBBB Surgical History S/P CABG x 3 Social History Smoking and tobacco status: former smoker Physical Exam Const: COMMON NORMALS: no acute distress, patient oriented x3, no limitations and alert Extremity: GENERAL: Yes normal exam except as noted OTHER: pts L index finger lesion has worsened since his visit 5 days ago; it still appears hemorrhagic but is larger in size and now showing signs of some underlying fluctuance; he does have some surrounding edema/redness now as well Neuro: COMMON NORMALS: patient oriented x3, moves all extremities, no focal motor deficits and no sensory deficits noted SENSORIUM/ORIENTATION: Yes alert Course Vital Signs: Vital signs: Vital Signs Temperature 97.6 F 04/01/22 10:39 Pulse Rate 64 04/01/22 10:39 Respiratory Rate 18 04/01/22 10:39 Blood Pressure 153/84 04/01/22 10:39 Pulse Oximetry 98 04/01/22 10:39 MDM - Skin/Abscess/Foreign Bdy Medicial Decision Making I spoke with patient regarding my concerns that the lesion is now worsening and spoke about possibly getting him set up with hand surgery. I stated I would take some pictures of the lesion and send them to a hand surgeon and possibly get him set up with an appointment however shortly after my initial examination patient tells me that he must leave to go to a dentist appointment before his wound care appointment at 1:00 today. I told him that wound care may not feel comfortable intervening given the location however he states he still wants to go to this appointment and must leave the ED to make his dentist appointment. Patient will be an AMA. Discharge Plan Discharge Patient Disposition: Left Against Medical Advice Clinical Impression: Finger lesion Condition: Stable Prescriptions: No Action aspirin [Adult Low Dose Aspirin] 81 mg tablet,delayed release (DR/EC) 81 mg PO DAILY 0RF ascorbic acid (vitamin C) 500 mg tablet 500 mg PO DAILY 0RF folic acid 1 mg tablet 1 mg PO DAILY 0RF bupropion HCl 200 mg tablet sustained-release 12 hr 200 mg PO BID 0RF atorvastatin 40 mg tablet 40 mg PO DAILY@0700 0RF hydrocodone-acetaminophen 5-325 mg tablet 1 tab PO Q6H PRN (Reason: Pain) 0RF levothyroxine 25 mcg tablet 25 mcg PO DAILY@0700 0RF losartan 25 mg tablet 25 mg PO DAILY@0700 0RF metoprolol tartrate 25 mg tablet 25 mg PO DAILY@0700 0RF cetirizine 10 mg tablet 10 mg PO BID PRN (Reason: allergy symptoms) Qty: 30 0RF Referrals: Satya Bright MD [Primary Care Provider] - Coding Level of Care Code ED Motors [employer] Controls Tester for Dorian Fwd Exam Expanded Problem Focused
== END 2022-04-01 11:30 | disposition left against medical advice (07) ==
PROVIDERS: Emergency Provider Physician Assistant; PCP Family Medicine
DX: I96 Gangrene, not elsewhere classified (principal); L98.492 Non-pressure chronic ulcer of skin of other sites with fat layer exposed; L98.9 Disorder of the skin and subcutaneous tissue, unspecified; Z53.29 Procedure and treatment not carried out because of patient's decision for other reasons
CPT/HCPCS: 97597; 99213; 99282

== ENCOUNTER → 2022-04-08 13:05 | Outpatient (BNVA) | payer MEDICARE, SELFPAY | PROVIDERS: PCP Family Medicine; Visit Provider Nurse Practitioner Family | DX: I96 Gangrene, not elsewhere classified (principal); L98.492 Non-pressure chronic ulcer of skin of other sites with fat layer exposed; L03.012 Cellulitis of left finger | CPT/HCPCS: 11042 ==

== ENCOUNTER → 2022-04-15 13:28 | Outpatient (BNVA) | payer MEDICARE, SELFPAY | PROVIDERS: PCP Family Medicine; Visit Provider Thoracic Surgery (Cardiothoracic Vascular Surgery) | DX: L98.492 Non-pressure chronic ulcer of skin of other sites with fat layer exposed (principal); I96 Gangrene, not elsewhere classified | CPT/HCPCS: 97597 ==

== ENCOUNTER 2022-04-18 15:37 | Emergency (ER) | payer MEDICARE, SELFPAY ==
[2022-04-18 15:54] VITALS: BP 105/62; PULSE 78; RESP 16; TEMP 36.9; O2SAT 97; BMI 23.7
--- NOTE | 2022-04-18 16:14 | ED_ITS ---
HPI - Skin/Abscess/Foreign Bdy General: Chief complaint: General Medical Stated complaint: bite to left hand Time Seen by Provider: 04/18/22 16:11 Source: patient Mode of arrival: ambulatory Limitations: no limitations History of Present Illness: Patient is a nice 81-year-old male who presents to ED today for evaluation of a wound to his left index finger. I have seen patient multiple times for this wound. We were successfully able to get him in with wound care following the last time I saw him. He has had 3 wound care appointments and seems satisfied with his wound care treatment at this time. He does feel like wound is improving. According to wound care documentation wound seems to be improving. He states the only reason he is here in the emergency department is because my son is driving me crazy telling me I need to have it looked at again . complaint: lesion Onset (ago): week(s) Tetanus up to date: yes Location: L hand Associated symptoms: Deny chills or fever(s) Treatments prior to arrival: other (wound care management ) Review of Systems Const: Denies: fever(s), chills, body aches, fatigue or malaise Musc: Reports: extremity pain (wound to L index finger) Neuro: Denies: numbness in extremities or sensory changes [facility] ED PFSH: Medical History Depression Hyperlipidemia Hypertension Hypothyroidism RBBB Surgical History S/P CABG x 3 Social History Smoking and tobacco status: former smoker Physical Exam Const: COMMON NORMALS: no acute distress, average body habitus, patient oriented x3, no limitations, healthy appearing, alert and well nourished Extremity: LEFT UPPER EXTREMITY: Yes hand & digits OTHER: pt with wound to dorsal L index finger; wound appears markedly improved since when I first saw him and when compared to his previous visit; he has two ulcerous healing lesions with clean borders and mild surrounding cellulitis to dorsal finger Neuro: COMMON NORMALS: patient oriented x3, moves all extremities, no focal motor deficits and no sensory deficits noted SENSORIUM/ORIENTATION: Yes alert Course Vital Signs: Vital signs: Vital Signs Temperature 98.4 F 04/18/22 15:54 Pulse Rate 78 04/18/22 15:54 Respiratory Rate 16 04/18/22 15:54 Blood Pressure 105/62 04/18/22 15:54 Pulse Oximetry 97 04/18/22 15:54 MDM - Skin/Abscess/Foreign Bdy Medicial Decision Making Wound appears vastly improved since I last saw patient. He overall agrees that it seems to be improving. He is satisfied with his wound care thus far. He has an appointment with them on Friday. Recommend he continues to follow-up with them. Explained to him we really do not need to see him from an emergency standpoint unless he feels area is worsening. Discharge Plan Discharge Patient Disposition: Home Clinical Impression: Open wound of left index finger Condition: Stable Prescriptions: No Action aspirin [Adult Low Dose Aspirin] 81 mg tablet,delayed release (DR/EC) 81 mg PO DAILY 0RF ascorbic acid (vitamin C) 500 mg tablet 500 mg PO DAILY 0RF folic acid 1 mg tablet 1 mg PO DAILY 0RF bupropion HCl 200 mg tablet sustained-release 12 hr 200 mg PO BID 0RF sulfamethoxazole-trimethoprim [Bactrim DS] 800-160 mg tablet 1 tab PO BID Qty: 14 0RF acetaminophen-codeine 300-15 mg tablet 1 tab PO BID PRN (Reason: pain) Qty: 14 0RF amoxicillin-pot clavulanate [Augmentin] 500-125 mg tablet 1 tab PO BID Qty: 20 0RF atorvastatin 40 mg tablet 40 mg PO DAILY@0700 0RF hydrocodone-acetaminophen 5-325 mg tablet 1 tab PO Q6H PRN (Reason: Pain) 0RF levothyroxine 25 mcg tablet 25 mcg PO DAILY@0700 0RF losartan 25 mg tablet 25 mg PO DAILY@0700 0RF metoprolol tartrate 25 mg tablet 25 mg PO DAILY@0700 0RF cetirizine 10 mg tablet 10 mg PO BID PRN (Reason: allergy symptoms) Qty: 30 0RF Discharge Orders: Discharge ED (Routine); Ordered 04/18/22 Ordered By: Nan Singh Referrals: Satya Bright MD [Primary Care Provider] - Activity Restrictions/Additional Instructions: YOU HAVE AN APPOINTMENT AT WOUND CARE SCHEDULED FOR FridayAPRIL 24 AT 11:00. Coding Level of Care Code ED Tmr Teacher for Chg Fwd Exam Expanded Problem Focused
== END 2022-04-18 16:32 | disposition home or self-care (01) ==
PROVIDERS: Emergency Provider Physician Assistant; PCP Family Medicine
DX: S61.201A Unspecified open wound of left index finger without damage to nail, initial encounter (principal); Z79.82 Long term (current) use of aspirin; E78.5 Hyperlipidemia, unspecified; I10 Essential (primary) hypertension; Z95.1 Presence of aortocoronary bypass graft; Z87.891 Personal history of nicotine dependence; X58.XXXA Exposure to other specified factors, initial encounter
CPT/HCPCS: 99281

== ENCOUNTER → 2022-04-24 10:39 | Outpatient (BNVA) | payer MEDICARE, SELFPAY | PROVIDERS: PCP Family Medicine; Visit Provider Thoracic Surgery (Cardiothoracic Vascular Surgery) | DX: I96 Gangrene, not elsewhere classified (principal); L03.114 Cellulitis of left upper limb; L98.492 Non-pressure chronic ulcer of skin of other sites with fat layer exposed | CPT/HCPCS: 97597 ==

== ENCOUNTER → 2022-05-01 10:11 | Outpatient (BNVA) | payer MEDICARE, SELFPAY | PROVIDERS: PCP Family Medicine; Visit Provider Thoracic Surgery (Cardiothoracic Vascular Surgery) | DX: I96 Gangrene, not elsewhere classified (principal); L98.492 Non-pressure chronic ulcer of skin of other sites with fat layer exposed | CPT/HCPCS: 97597 ==

== ENCOUNTER → 2022-05-08 14:35 | Outpatient (BNVA) | payer MEDICARE, SELFPAY | PROVIDERS: PCP Family Medicine; Visit Provider Thoracic Surgery (Cardiothoracic Vascular Surgery) | DX: I96 Gangrene, not elsewhere classified (principal); L98.492 Non-pressure chronic ulcer of skin of other sites with fat layer exposed; L03.114 Cellulitis of left upper limb | CPT/HCPCS: 97597 ==

== ENCOUNTER → 2022-05-23 13:55 | Outpatient (BNVA) | payer OTHER, SELFPAY | PROVIDERS: PCP Family Medicine; Visit Provider Internal Medicine Cardiovascular Disease | DX: I25.10 Atherosclerotic heart disease of native coronary artery without angina pectoris (principal); I10 Essential (primary) hypertension; Z95.1 Presence of aortocoronary bypass graft; Z87.891 Personal history of nicotine dependence | CPT/HCPCS: 99213; 99214 ==

== ENCOUNTER 2022-06-27 13:30 | Emergency (ER) | payer OTHER, SELFPAY ==
[2022-06-27 13:32] VITALS: BP 144/70; PULSE 72; RESP 16; TEMP 36.5; O2SAT 98; BMI 24.7
--- NOTE | 2022-06-27 16:12 | W.ED.EYEPROB ---
HPI - Eye Problem General: Chief complaint: Eye Problems Stated complaint: cataract surgery, not feeling good Time Seen by Provider: 06/27/22 13:41 History of Present Illness: This is an 81-year-old male who is in today for concerns about sneezing and nasal congestion. Patient offers that he had cataract surgery on Friday of this week in his left eye. He reports that the next day he started sneezing more than he ever has in his life, having watering eyes, nasal congestion and drainage, a foul taste in his mouth. He reports that he did go see his product info specialist yesterday to have the symptoms evaluated. His product info specialist said that everything looked okay and his symptoms appear to be unrelated to his eye surgery. The patient said that he is feeling much better today however he thought he should just get a quick check Associated symptoms: Denies fever(s), headache(s), nausea, neck pain or vomiting Review of Systems Const: Denies: fever(s), chills or body aches Eyes: Reports: blurry vision (Reports as expected after his surgery, but no worse) ENMT: Reports: nasal discharge, nasal congestion and post nasal drip; Denies: throat pain Card: Denies: chest pain, palpitations, irregular heart rhythm, lightheadedness or syncope Resp: Denies: dyspnea, productive cough or non-productive cough GI: Denies: abdominal pain, nausea or vomiting : Denies: flank pain, dysuria, urinary frequency, urinary urgency or urinary hesitancy Musc: Denies: neck pain or back pain Neuro: Denies: headache(s), numbness in extremities or weakness in extremities PFSH ED PFSH: Medical History Depression Hyperlipidemia Hypertension Hypothyroidism RBBB Surgical History S/P CABG x 3 Social History Smoking and tobacco status: former smoker Physical Exam Const: COMMON NORMALS: no acute distress, patient oriented x3, healthy appearing and alert HENMT: COMMON NORMALS: external ears normal, EAC's normal, TM's normal bilaterally and Normal external nose present FACE & SINUS: normal facial exam and sinuses nontender NOSE: Normal external nose present, Normal nares present and Nasal discharge present clear EXTERNAL EAR: Yes external ears normal EXTERNAL AUDITORY CANAL: EAC's normal TYMPANIC MEMBRANE: TM's normal bilaterally THROAT: posterior oropharynx normal and postnasal drainage Resp: COMMON NORMALS: normal respiratory effort and clear to auscultation bilaterally AUSCULTATION: clear to auscultation bilaterally Cardio: COMMON NORMALS: regular rate, regular rhythm, S1 normal heart sound present and S2 normal heart sound present RATE: regular rate RHYTHM: regular rhythm HEART SOUNDS: S1 normal heart sound present and S2 normal heart sound present Neuro: COMMON NORMALS: patient oriented x3 SENSORIUM/ORIENTATION: Yes alert Course Vital Signs: Vital signs: Vital Signs Temperature 97.7 F 06/27/22 13:32 Pulse Rate 72 06/27/22 13:32 Respiratory Rate 16 06/27/22 13:32 Blood Pressure 144/70 06/27/22 13:32 Pulse Oximetry 98 06/27/22 13:32 Oxygen Delivery Me thod 06/27/22 13:32 MDM - Eye Problem Medical Decision Making Patient is concerned that the sneezing and nasal discharge could be related to his recent cataract surgery. He does offer that he was reassured by the product info specialist yesterday that his eye surgery appeared to be progressing as expected. He offers that he feels better today than he did yesterday. He is afebrile. Physical exam findings are consistent with allergic rhinitis. He does have some redness to the left eye which she reports was very similar when he had his right eye surgery done 3 weeks before. He denies any eye pain or any change in vision. He reports that he has blurriness after the surgery but nothing is worsening. He reports having similar blurriness after his right eye surgery as well. Discussed with patient that I do not see any indication that his symptoms are related to his recent cataract surgery. We discussed conservative treatments at home for allergic rhinitis. Follow-up with his product info specialist tomorrow or next week as needed. Return to the ER for any new or worsening symptoms. Patient is very understandable and agreeable with instruction Discharge Plan Discharge Patient Disposition: Home Clinical Impression: Allergic rhinitis Condition: Stable Prescriptions: No Action aspirin [Adult Low Dose Aspirin] 81 mg tablet,delayed release (DR/EC) 81 mg PO DAILY ascorbic acid (vitamin C) 500 mg tablet 500 mg PO DAILY folic acid 1 mg tablet 1 mg PO DAILY bupropion HCl 200 mg tablet sustained-release 12 hr 200 mg PO BID acetaminophen-codeine 300-15 mg tablet 1 tab PO BID PRN (Reason: pain) Qty: 14 0RF atorvastatin 40 mg tablet 40 mg PO DAILY@0700 hydrocodone-acetaminophen 5-325 mg tablet 1 tab PO Q6H PRN (Reason: Pain) levothyroxine 25 mcg tablet 25 mcg PO DAILY@0700 losartan 25 mg tablet 25 mg PO DAILY@0700 metoprolol tartrate 25 mg tablet 25 mg PO DAILY@0700 cetirizine 10 mg tablet 10 mg PO BID PRN (Reason: allergy symptoms) Qty: 30 0RF Discharge Orders: Discharge ED (Routine); Ordered 06/27/22 Ordered By: Cesilia Rome Referrals: Satya Bright MD [Primary Care Provider] - Discharge Diet: Usual diet Discharge Activity: Resume usual activity Patient Instructions: Allergic Rhinitis (ED) Activity Restrictions/Additional Instructions: Treat allergies conservatively at home. Follow-up with your student life advisor next week. Return to the ER as needed for new or worsening symptoms, changes in vision or pain. Coding Level of Care Code ED Emergency Management Director for Dorian Marie
== END 2022-06-27 14:09 | disposition home or self-care (01) ==
PROVIDERS: Emergency Provider Nurse Practitioner Family; PCP Family Medicine
DX: J30.9 Allergic rhinitis, unspecified (principal); Z79.82 Long term (current) use of aspirin; E78.5 Hyperlipidemia, unspecified; I10 Essential (primary) hypertension; Z87.891 Personal history of nicotine dependence; Z95.1 Presence of aortocoronary bypass graft
CPT/HCPCS: 99282

== ENCOUNTER 2022-07-11 06:51 | Outpatient (CLI) | payer OTHER, SELFPAY ==
--- NOTE | 2022-07-11 | ECG_ITS ---
[facility] Test Date: 2022-07-11 Pat Name: Kenneth Li Department: Room: Gender: Male Photo Specialist: : 1940 Requested By: Brigette Marquez Order Number: [id number] Gricel MD: Brigette Marquez M.D. Interpretive Statements NAME OF STUDY: LEXISCAN SESTAMIBI STRESS TEST INDICATION: Chest Pain PROCEDURE: At the baseline, the blood pressure was 122/68 mmHg with a heart rate of 57 bpm. The electrocardiogram showed sinus rhythm, left anterior fascicular block. Right bundle branch block. The Lexiscan was infused over a period of 20 seconds. A total of 0.4 milligrams of Lexiscan was infused. The stress phase was continued for a total of 5 minutes. Heart rate at the end of the stress phase was 70 bpm with a blood pressure of 109/68 mmHg. The EKG at the peak infusion revealed sinus rhythm with no significant ST-T wave changes. Sestamibi was injected 20 seconds after the Lexiscan infusion. Blood pressure at the end of the recovery phase was 108/68 mmHg with a heart rate of 66 beats per minute. CONCLUSION: 1. No significant EKG changes with the LexiScan infusion. 2. No LexiScan induced chest pain or cardiac arrhythmia. 3. Normal blood pressure and heart rate response. 4. Sestamibi/sestamibi perfusion scan pending; see separate report. Electronically Signed On 07-15-2022 10:04:41 CDT by Brigette Marquez M.D. [email or web address]
--- NOTE | 2022-07-11 07:21 | NMCV_ITS ---
NM ne perf SPECT r/s* [id number] Kenneth Li Age: 81 Gender: M : 1940 Exam Date: 07/11/2022 08:41 Ordering Phys: Brigette Marquez MD ([email or web address]) Technologist: ASHLEY Oshea Exam Location: [facility] Indications: CHEST PAIN STRESS TEST Please see separate stress test report in [facility] for full findings IMAGE PROTOCOL Rest/Stress 1 Lexiscan Day Radiopharmaceutical Dose (mCi) Administration Site Administered by Rest: Tc-99m 10.7 IV ASHLEY Holliday Sestamibi Stress:Tc-99m 32.6 IV ASHLEY Oshea Sestamiserena Rest: 11-Jul-2022 60 Discovery 630 Stress: 11-Jul-2022 30 Discovery 630 0.4mg Lexiscan. Supine position only as patient was unable to lay prone. SPECT RESULTS Technical Quality: Excellent Raw Data Analysis: Normal Image Corrections: No attenuation or motion correction applied Summed Stress Score: 12 Summed Rest Score: 1 Summed Difference Score: 11 PERFUSION FINDINGS Medium sized perfusion abnormality of mild severity of mid to apical inferior, mid inferolateral, apical lateral, mid inferoseptal and apical anterior on stress images. FUNCTIONAL RESULTS (calculated via Gated SPECT) Stress Image LV EF (%): 59 Stress EDV (mL):82 TID: 1.02 Stress ESV (mL):34 FUNCTIONAL FINDINGS: The left ventricle is normal in size. Transient Ischemia Dilatation of 1. There is normal left ventricular systolic function. The left ventricular ejection fraction is normal with a value of 59%. There is normal left ventricular wall thickening. IMPRESSIONS 1. Medium sized reversible perfusion abnormality of mild severity of mid to apical inferior, mid inferolateral, apical lateral, mid inferoseptal and apical anterior images. 2. This may represent ischemia and right coronary artery/circumflex artery territory. Attenuation artifact cannot be completely ruled out in absence of prone imaging. 3. Overall left ventricular systolic function is normal without regional wall motion abnormalities, LVEF=59%. 4. No EKG changes with Lexiscan infusion. Refer to separate report for details. Brigette Marquez MD (Electronically Signed) Final Date: 15 July 2022 10:13 S
[2022-07-11 07:48] VITALS: BMI 24.7
[2022-07-11] MEDS: regadenoson 0.4 Mg/5 ml Syringe IVP (09:09)
[2022-07-11 09:44] VITALS: BP 109/68; PULSE 69
== END 2022-07-11 06:52 | disposition home or self-care (01) ==
LOC: CDL 06:58
PROVIDERS: PCP Family Medicine; Visit Provider Internal Medicine Cardiovascular Disease
DX: R07.9 Chest pain, unspecified (principal); R94.39 Abnormal result of other cardiovascular function study
CPT/HCPCS: 78452; 93017; A9500; J2785

== ENCOUNTER → 2022-11-21 14:24 | Outpatient (BNVA) | payer MEDICARE, SELFPAY | PROVIDERS: PCP Family Medicine; Visit Provider Internal Medicine Cardiovascular Disease | DX: I25.10 Atherosclerotic heart disease of native coronary artery without angina pectoris (principal); I10 Essential (primary) hypertension; E78.5 Hyperlipidemia, unspecified; Z95.1 Presence of aortocoronary bypass graft; I45.10 Unspecified right bundle-branch block; F32.A Depression, unspecified; Z87.891 Personal history of nicotine dependence | CPT/HCPCS: 99214; Q3014 ==

== ENCOUNTER → 2022-12-20 10:19 | Outpatient (BNVA) | payer MEDICARE, SELFPAY | PROVIDERS: PCP Family Medicine; Referring Provider Family Medicine; Visit Provider Student in an Organized Health Care Education/Training Program | DX: M19.041 Primary osteoarthritis, right hand (principal); M19.042 Primary osteoarthritis, left hand | CPT/HCPCS: 73130; 99204 ==

== ENCOUNTER → 2023-05-06 10:06 | Outpatient (BNVA) | payer MEDICARE, SELFPAY | PROVIDERS: PCP Family Medicine; Visit Provider Nurse Practitioner Family | DX: Z95.1 Presence of aortocoronary bypass graft (principal); I10 Essential (primary) hypertension; Z87.891 Personal history of nicotine dependence | CPT/HCPCS: 99214 ==

== ENCOUNTER → 2023-08-21 13:13 | Outpatient (BNVA) | payer MEDICARE, SELFPAY | PROVIDERS: PCP Family Medicine; Visit Provider Internal Medicine Cardiovascular Disease | DX: I25.10 Atherosclerotic heart disease of native coronary artery without angina pectoris (principal); I10 Essential (primary) hypertension; Z95.1 Presence of aortocoronary bypass graft; Z87.891 Personal history of nicotine dependence | CPT/HCPCS: 99214 ==

== ENCOUNTER → 2023-10-23 09:53 | Outpatient (BNVA) | payer MEDICARE, SELFPAY | PROVIDERS: PCP Family Medicine; Visit Provider Podiatrist Foot & Ankle Surgery | DX: L97.512 Non-pressure chronic ulcer of other part of right foot with fat layer exposed; B35.1 Tinea unguium; I73.9 Peripheral vascular disease, unspecified | CPT/HCPCS: 11042; 11721; 87070; 87075; 87205; 99204 ==

== ENCOUNTER → 2023-10-30 08:51 | Outpatient (BNVA) | payer MEDICARE, SELFPAY | PROVIDERS: PCP Family Medicine; Visit Provider Podiatrist Foot & Ankle Surgery | DX: L97.512 Non-pressure chronic ulcer of other part of right foot with fat layer exposed (principal); B35.1 Tinea unguium; I73.9 Peripheral vascular disease, unspecified | CPT/HCPCS: 99213 ==

== ENCOUNTER 2023-11-21 14:43 | Emergency (ER) | payer MEDICARE, SELFPAY ==
[2023-11-21 14:47] VITALS: BP 119/72; PULSE 78; RESP 16; TEMP 36.7; O2SAT 98
--- NOTE | 2023-11-21 15:41 | W.ED.SKABFB ---
HPI - Skin/Abscess/Foreign Bdy General: Chief complaint: Skin/Abscess/Foreign Body Stated complaint: open wound both sides of groin Time Seen by Provider: 11/21/23 15:10 Source: patient Mode of arrival: ambulatory Limitations: no limitations History of Present Illness: 83-year-old male presents to the ER today for a tender/painful rash in his groin. Patient reports this is on both sides. He reports it is red and has a foul smell. He reports that his bleeding it is so raw. He has tried things at home with no improvement. He is concerned because he had a family member with MRSA and he does not want it to become complicated. Review of Systems General: Reports: 10 or more systems reviewed and unremarkable except in HPI and below PFSH ED PFSH: Medical History RBBB Depression Hypertension Hyperlipidemia Hypothyroidism Surgical History S/P CABG x 3 Social History Smoking and tobacco/nicotine status: former use of tobacco/nicotine Physical Exam Const: COMMON NORMALS: no acute distress, patient oriented x3, no limitations, alert and well nourished Resp: COMMON NORMALS: normal respiratory effort Cardio: COMMON NORMALS: regular rate and regular rhythm RATE: regular rate RHYTHM: regular rhythm Extremity: COMMON NORMALS: normal to inspection and full ROM Neuro: COMMON NORMALS: patient oriented x3 SENSORIUM/ORIENTATION: Yes alert Psych: COMMON NORMALS: mental status grossly normal and Normal thought process present THOUGHT PROCESS: Normal thought process present Skin: NARRATIVE SKIN EXAM: Patient has a classic intertriginous candidiasis rash of the bilateral groins. This is opened in some areas with discharge. There is a foul order also noted. Tender. Course ED course: Patient presents to the ER with a ration of bilateral groins. This is tender and has been present for a couple of weeks. No fevers reported. No other symptoms reported. Patient has not done anything other than creams at home for this. Vital Signs: Vital signs: Vital Signs Temperature 98.1 F 11/21/23 14:47 Pulse Rate 78 11/21/23 14:47 Respiratory Rate 16 11/21/23 14:47 Blood Pressure 119/72 11/21/23 14:47 Pulse Oximetry 98 11/21/23 14:47 Oxygen Delivery Me thod Room Air 11/21/23 14:47 MDM - Skin/Abscess/Foreign Bdy Medicial Decision Making Patient has a classic intertriginal candidiasis rash in bilateral groins. This is open and draining in some areas. Discussed findings with patient. We will start him on Diflucan given the severity of it. Recommend patient get some Goldbond powder. Recommended he avoid wearing tight fitting clothing. I also recommended that he put a washcloth in this area to keep the skin folds from touching, or some sort of barrier. Discussed with patient this can take a couple of weeks to resolve. He needs to follow-up with his PCP in 10 to 14 days for follow-up. Return to the ER with new or worsening symptoms including any fevers. Patient verbalized understanding and was in agreement with the treatment plan No radiology studies performed this visit Critical Care Time Critical Care Time: Critical Care Time: No Discharge Plan Discharge Patient Disposition: Home Clinical Impression: Candidiasis, intertriginous Condition: Stable Prescriptions: New fluconazole [Diflucan] 100 mg tablet 100 mg PO DAILY 14 Days Qty: 14 0RF No Action paroxetine HCl 10 mg tablet 10 mg PO DAILY aspirin [Adult Low Dose Aspirin] 81 mg tablet,delayed release (DR/EC) 81 mg PO DAILY ascorbic acid (vitamin C) 500 mg tablet 500 mg PO DAILY folic acid 1 mg tablet 1 mg PO DAILY bupropion HCl 200 mg tablet sustained-release 12 hr 200 mg PO BID isosorbide mononitrate 10 mg tablet 10 mg PO DAILY Qty: 30 6RF Rx Instructions: give doses 7 hrs apart cephalexin 500 mg capsule 500 mg PO TID 7 Days Qty: 21 0RF acetaminophen-codeine 300-15 mg tablet 1 tab PO BID PRN (Reason: pain) Qty: 14 0RF nitroglycerin [Nitrostat] 0.4 mg tablet, sublingual 0.4 mg sublingual Q5M PRN (Reason: chest pain) Qty: 25 3RF Rx Instructions: do not exceed 3 doses per episode atorvastatin 40 mg tablet 40 mg PO DAILY@0700 hydrocodone-acetaminophen 5-325 mg tablet 1 tab PO Q6H PRN (Reason: Pain) levothyroxine 25 mcg tablet 25 mcg PO DAILY@0700 metoprolol tartrate 25 mg tablet 25 mg PO DAILY@0700 cetirizine 10 mg tablet 10 mg PO BID PRN (Reason: allergy symptoms) Qty: 30 0RF Discharge Orders: Discharge ED (Routine); Ordered 11/21/23 Ordered By: Jaqui Manzo Referrals: Staya Bright MD [Primary Care Provider] - Discharge Diet: Usual diet Discharge Activity: Resume usual activity Patient Instructions: Opioid Safety, Pain Management Activity Restrictions/Additional Instructions: Take fluconazole as prescribed. Use Goldbond powder in the areas of rash. Keep these areas as dry as possible by putting in a clean washcloth to keep from sweating and to keep the skin folds from touching. Follow-up with PCP in 2 weeks if no improvement. Return to the ER with new or worsening symptoms. Coding Level of Care Code ED Visual Merchandising Coordinator for Dorian Marie
== END 2023-11-21 15:59 | disposition home or self-care (01) ==
PROVIDERS: Emergency Provider Physician Assistant; PCP Family Medicine
DX: B37.2 Candidiasis of skin and nail (principal); Z79.82 Long term (current) use of aspirin; Z87.891 Personal history of nicotine dependence; I10 Essential (primary) hypertension; E78.5 Hyperlipidemia, unspecified; Z95.1 Presence of aortocoronary bypass graft
CPT/HCPCS: 99283

== ENCOUNTER 2024-01-27 08:55 | Outpatient (CLI) | payer MEDICARE, SELFPAY ==
--- NOTE | 2024-01-27 09:01 | MR_ITS ---
WS: [id number] MRI RIGHT SHOULDER NONCONTRAST TECHNIQUE: Sagittal T2, coronal T1, T2 and proton density imaging. Axial gradient PDE imaging. CLINICAL INFORMATION: R SHOULDER PAIN COMPARISON: None. FINDINGS: Advanced degenerative arthritis AC joint with narrowing of the subacromial space. Complete loss of th e subacromial space with impingement on the humeral head. Advanced degenerative arthritis at the pollo ohumeral articulation with subchondral cystic change. Joint effusion. Chronic appearing high-grade complete tears of the supraspinatus and infraspinatus with muscle belly atrophy. Atrophy of the teres minor which appears intact. Retraction of the supraspinatus to the pollo ohumeral joint. Chronic atrophy of the subscapularis muscle belly and tendon which is intact distally. Chronic tear o f the transverse ligament. Biceps tendon not identified within the bicipital groove. Advanced degener ative changes glenohumeral articulation with hypertrophic changes. Cystic degenerative changes of the greater tuberosity. . Chronic degenerative fraying of the glenoid labrum. Small subcoracoid effusion . IMPRESSION: Some images are degraded graded by motion. 1. 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 2. 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 Teres minor appears inta ct. 3. Biceps tendon not identified within the bicipital groove likely due to chronic tear. 4. Cystic degenerative changes involving the greater tuberosity. Joint effusion.
== END 2024-01-27 08:56 | disposition home or self-care (01) ==
LOC: RAD 08:55
PROVIDERS: PCP Family Medicine; Visit Provider Family Medicine
DX: M25.511 Pain in right shoulder (principal); M24.111 Other articular cartilage disorders, right shoulder; M75.121 Complete rotator cuff tear or rupture of right shoulder, not specified as traumatic
CPT/HCPCS: 73221

== ENCOUNTER → 2024-02-03 07:43 | Outpatient (BNVA) | payer MEDICARE, SELFPAY | PROVIDERS: PCP Family Medicine; Referring Provider Family Medicine; Visit Provider Student in an Organized Health Care Education/Training Program | DX: M75.101 Unspecified rotator cuff tear or rupture of right shoulder, not specified as traumatic (principal); M12.811 Other specific arthropathies, not elsewhere classified, right shoulder | CPT/HCPCS: 99214 ==

== ENCOUNTER → 2024-05-27 10:40 | Outpatient (BNVA) | payer MEDICARE, SELFPAY | PROVIDERS: PCP Family Medicine; Visit Provider Podiatrist Foot & Ankle Surgery | DX: B35.1 Tinea unguium (principal); I73.9 Peripheral vascular disease, unspecified; Q82.8 Other specified congenital malformations of skin | CPT/HCPCS: 11055; 11721 ==

== ENCOUNTER → 2024-07-07 14:36 | Outpatient (BNVA) | payer MEDICARE, SELFPAY | PROVIDERS: PCP Family Medicine; Visit Provider Podiatrist Foot & Ankle Surgery | DX: B35.1 Tinea unguium (principal); I73.9 Peripheral vascular disease, unspecified; Q82.8 Other specified congenital malformations of skin | CPT/HCPCS: 11721 ==

== ENCOUNTER → 2025-01-21 09:56 | Outpatient (BNVA) | payer MEDICARE, SELFPAY | PROVIDERS: PCP Family Medicine; Visit Provider Physician Assistant | DX: M17.0 Bilateral primary osteoarthritis of knee (principal); Z46.89 Encounter for fitting and adjustment of other specified devices | CPT/HCPCS: 73560; 73565 ==

== ENCOUNTER 2025-01-21 12:20 | Outpatient (CLI) | payer MEDICARE, SELFPAY | END 2025-01-21 12:21 | disposition home or self-care (01) | LOC: SPT 12:22 | PROVIDERS: PCP Family Medicine; Visit Provider Physician Assistant | DX: Z46.89 Encounter for fitting and adjustment of other specified devices (principal); M25.561 Pain in right knee | CPT/HCPCS: 99213; L1852 ==

== ENCOUNTER 2025-03-30 12:11 | Outpatient (RCR) | payer MEDICARE, SELFPAY | END 2025-04-18 23:59 | disposition home or self-care (01) | LOC: SOT 12:11 | PROVIDERS: Visit Provider Family Medicine | DX: M24.541 Contracture, right hand (principal) | CPT/HCPCS: 97022; 97140; 97166 ==

== ENCOUNTER 2025-04-19 05:00 | Outpatient (RCR) | payer MEDICARE, SELFPAY | END 2025-04-19 23:55 | disposition home or self-care (01) | LOC: SOT 05:00 | PROVIDERS: Visit Provider Family Medicine | DX: M24.541 Contracture, right hand (principal) | CPT/HCPCS: 97140 ==

== ENCOUNTER 2025-08-12 13:39 | Observation (INO) | payer OTHER, SELFPAY ==
--- OUTSIDE RECORDS SUMMARY | 2025-08-12 13:46 | XMS_ITS | Clinical Summary ---
Author Organization [facility] Address [address] [place] [address] Phone Care Team Providers Care [employer] Secretary Name Role Phone Satya Bright MD Primary Care Provider [phone] Allergies Active Allergy Reactions Criticality Noted Date Comments Clindamycin Rash Medium 2023 Medications venlafaxine (EFFEXOR) 75 MG tablet Take 225 mg by mouth 1 (one) time each day 0 Active PARoxetine (PAXIL) 10 MG tablet Take 10 mg by mouth 1 (one) time each day 3 Active nitroglycerin (NITROSTAT) 0.[address] 1 TABLET BY SUBLINGUAL ROUTE NEEDED 2 Active metoprolol tartrate 25 MG tablet Take 12.5 mg by mouth in the morning and 12.5 mg in the evening. 6 Active losartan (COZAAR) 25 MG tablet Take 25 mg by mouth 1 (one) time each day Active levothyroxine (SYNTHROID, LEVOTHROID) 25 MCG tablet Take 25 mcg by mouth 1 (one) time each day 6 Active isosorbide mononitrate (ISMO,MONOKET) 10 MG tablet Take 10 mg by mouth in the morning and 10 mg in the evening. 3 Active HYDROcodone-acet aminophen (NORCO) 5-325 MG per tablet TAKE 1 TABLET BY MOUTH EVERY 6 HOURS NEEDED FOR 30 DAYS 0 Active folic acid (FOLVITE) 1 MG tablet Take 1 mg by mouth 1 (one) time each day 2 Active famotidine (PEPCID) 20 MG tablet Take by mouth in the morning and in the evening. Active diclofenac (VOLTAREN) 50 MG EC tablet TAKE 1 TABLET BY MOUTH EVERY DAY FOR pain Active cetirizine (ZyrTEC) 10 MG tablet Take 10 mg by mouth 1 (one) time each day 1 Active buPROPion XL (WELLBUTRIN XL) 300 MG 24 hr tablet Take 300 mg by mouth in the morning. 0 Active atorvastatin (LIPITOR) 40 MG tablet Take 40 mg by mouth 1 (one) time each day 8 Active aspirin (ST LALITA) 81 MG EC tablet Take 81 mg by mouth 1 (one) time each day 2 Active ascorbic acid (VITAMIN C) 1000 MG tablet Take 1,000 mg by mouth in the morning. Active Encounters Date Type Department Care Team Description 06/30/2025 Documentation Only [facility], [facility] [address] [place] [id number] Eliza Cr 06/07/2025 Office Communication [facility], [facility] [address] [place] [address] Linn Li MD 06/07/2025 Transcribe Orders [facility], [facility] [address] [place] [id number] Satya Bright MD Renal insufficiency (Primary Dx) from Last 3 Months Immunizations Immunization Administration Dates Next Due Influenza, Unspecified 08/03/2004 Pneumococcal Conjugate 13-Valent 07/25/2015 Pneumococcal, Unspecified 03/14/2005 Td, Unspecified 03/14/2005,10/20/1993 Tdap 03/25/2022,04/19/2012 Family History Relation Status Comments Mother Alive Social History Tobacco Use Types Packs/Day Years Used Date Smoking Tobacco: Former Cigarettes Smokeless Tobacco: Never Tobacco Cessation:Counseling Given: Not Answered Alcohol Use Standard Drinks/Week Comments Not Currently 0 (1 standard drink = 0.6 oz pur e alcohol) Sex and Gender Information Value Date Recorded Sex Assigned at Not on file Legal Sex Male 11:43 AM EDT Gender Identity Not on file Sexual Orientation Not on file Plan of Treatment Health Maintenance Due Date Last Done Comments Pneumococcal Vaccine: 50+ Years (2 of 2 - PPSV23, PCV20, or PCV21) 09/19/2015 07/25/2015, 03/14/2005 Influenza Vaccine (#1) 2025 08/03/2004 Diabetes: Hemoglobin A1C 06/30/2025 Diabetes: Ophthalmology Exam 06/30/2025 Diabetes: Pedal Pulse Checked 06/30/2025 Diabetes: Sensory Foot Exam 06/30/2025 Diabetes: Visual Foot Exam 06/30/2025 Hepatitis B Vaccine Aged Out No longe r eligible based on patient's age to complete this topic Procedures Procedure Name Priority Date/Time Associated Diagnosis Comments CBC (INCLUDES DIFF/PLT) (EXTERNAL LAB ENTRY) Routine 05/31/2025 3:55 PM CDT COMPREHENSIVE METABOLIC PANEL (CMP) (EXTERNAL LAB ENTRY) Routine 05/31/2025 3:55 PM CDT from Last 3 Months Results * Comprehensive Metabolic Panel (CMP) (05/31/2025 3:55 PM CDT) Glucose 94.0 mg/dL BUN 55.0 mg/dL Creatinine 2.7 mg/dL Sodium 141 mEq/L Potassium 4.1 mEq/L Chloride 105 Carbon Dioxide 29.0 mmol/L Calcium 8.9 mg/dL Albumin (Blood) 3.8 g/dL AST (SGOT) 30 U/L ALT (SGPT) 22 U/L Alkaline Phosphatase 82.0 U/L Total Bilirubin 0.90 MG/DL eGFR Non-Afr [place]er 75.5 Total Protein, Serum 7.3 Anion Gap 7.0 Globulin, Total 3.5 g/dL A/G Ratio 1.1 Blood 05/31/2025 3:55 PM CDT us Satya Bright MD LAB BLOOD ORDERABLES Final Resu lt * CBC (Includes Diff/Plt) (External Lab) (05/31/2025 3:55 PM CDT) WBC 7.2 K/uL Red Blood Cell Count 4.37 Hemoglobin 13.1 g/dL Hematocrit 41.8 % MCV 95.6 MCH 30 MCHC 31.4 RDW 14.2 Platelet Count 266 Absolute Lymphocytes 1.6 Absolute Monocytes 0.6 Lymphocytes 24.9 Monocytes 8.0 Granulocytes Absolute 4.5 Granulocytes % 62.5 Blood 05/31/2025 3:55 PM CDT Eliza Rosa - 06/30/2025 10:19 AM CDT [facility] [address] [place], [place] [address] [facility] Satya Bright MD LAB BLOOD ORDERABLES Final Resu lt from Last 3 Months Insurance [place] MCR Adv ([id number]) Care Teams Corporation Secretary Relationship Specialty Start Date End Date Satya Bright MD [address] [place] [phone] PCP - General Family Medicine 06/07/25
--- OUTSIDE RECORDS SUMMARY | 2025-08-12 13:46 | XMS_ITS | Encounter Summary ---
Author Organization [facility] Address [address] [address] Phone Care Team Providers Care Roguer Name Role Phone Satya Bright MD Primary Care Provider [phone] Reason for Referral * Consultation (Routine) - Closed Specialty Diagnoses / Procedures Referred By Contjanet t Referred To Contact Nephrology Diagnoses Renal insufficiency Satya Bright MD [address] [place] [address] Phone: tel: fax: Linn Li MD [address] [address] Phone: tel: fax: Referral ID Status Reason Start Date Expiration Date V isits Requested Visits Authorized [id number] Closed Consult and Treat 06/07/2025 06/07/2026 1 1 Encounter Details Date Type Department Care Team (Latest Contact Info) Description 06/07/2025 Transcribe Orders [facility] [address] [address] Satya Bright MD [address] [place] [address] Renal insufficiency (Primary Dx) Social History Tobacco Use Types Packs/Day Years Used Date Smoking Tobacco: Never Assessed Sex and Gender Information Value Date Recorded Sex Assigned at Not on file Legal Sex Male 11:43 AM EDT Gender Identity Not on file Sexual Orientation Not on file documented as of this encounter Plan of Treatment Scheduled Referrals Name Type Priority Associated Diagnoses Orde r Schedule Ambulatory referral to Nephrology Outpatient Referral Routine Renal insufficiency Expected: 06/07/2025, Expires: 06/07/2026 documented as of this encounter Visit Diagnoses Diagnosis Renal insufficiency- Primary documented in this encounter Care Teams Roguer Relationship Specialty Start Date End Date Satya Birght MD [address] [place] [phone] PCP - General Family Medicine 06/07/25 documented as of this encounter
--- OUTSIDE RECORDS SUMMARY | 2025-08-12 13:46 | XMS_ITS | Clinical Summary ---
Author Organization [facility] Address [address] [place] [address] Care Team Providers Care Boiler Fireman Name Role Phone Satya Bright MD Primary Care Provider [phone] Allergies No known active allergies Medications losartan (COZAAR) 50 mg tablet Take 25 mg by mouth daily. Active levothyroxine 25 mcg Oral tablet Take 25 mcg by mouth daily clinical specialist vascular. Active metoprolol tartrate (LOPRESSOR) 25 mg tablet Take 12.5 mg by mouth 2 times daily. Active aspirin (ECOTRIN EC) 81 mg Tablet, Delayed Release (E.C.) Take 81 mg by mouth daily. Active HYDROcodone-agustin taminophen (NORCO) 5-325 mg tablet Take 1 Tab by mouth every 4 hours as needed. Active ascorbic acid (VITAMIN C) 1,000 mg Tablet Take 1,000 mg by mouth daily. Active atorvastatin (LIPITOR) 40 mg tablet Take 40 mg by mouth late in the day. Active buPROPion HCL (WELLBUTRIN XL) 300 mg Extended Release 24 hour tablet Take 300 mg by mouth daily. 0 Active venlafaxine (EFFEXOR) 75 mg tablet TAKE 3 CAPSULES BY MOUTH ONCE A DAY FOR MOOD WITH FOOD. DO NOT ABRUPTLY DISCONTINUE MEDICATION. 0 Active Active Problems Problem Noted Date Diagnosed Date Palpitations 07/16/2018 S/P CABG (coronary artery bypass graft) 03/07/20 15 ASHD (arteriosclerotic heart disease) 02/15/2014 Overview (03/19/2016): status post CABG Old DC (myocardial infarction) 02/15/2014 HTN (hypertension), benign 02/15/2014 Dyslipidemia 02/15/2014 Hypothyroid 02/15/2014 Arthritis 02/15/2014 Depression 02/15/2014 Social History Tobacco Use Types Packs/Day Years Used Date Smoking Tobacco: Former Cigarettes Q uit: 02/15/2007 Tobacco Cessation:Counseling Given: No Alcohol Use Standard Drinks/Week Comments Not Asked 0 (1 standard drink = 0.6 oz pur e alcohol) Sex and Gender Information Value Date Recorded Sex Assigned at Not on file Legal Sex Male 5:31 AM [employer]ALL [employer] Gender Identity Not on file Sexual Orientation Not on file Last Filed Vital Signs Vital Sign Reading Time Taken Comments Blood Pressure 118/60 08/01/2020 12:15 PM CDT Pulse 78 08/01/2020 12:15 PM CDT Temperature - - Respiratory Rate 14 07/27/2019 1:10 PM CDT Oxygen Saturation - - Inhaled Oxygen Concentration - - Weight 91.5 kg (201 lb 12.8 oz) 020 12:15 PM CDT Height 180.3 cm (5' 11 ) 08/01/2020 12: 15 PM CDT Body Mass Index 28.15 08/01/2020 12:15 PM CDT Plan of Treatment Health Maintenance Due Date Last Done Comments ZOSTER VACCINE (1 of 2) 1988 RSV VACCINE (60+ or ) (1 - 1-dose 75+ series) 2013 PNEUMOCOCCAL VACCINE 50+ YEA RS (2 of 2 - PCV20 or PCV21) 07/25/2016 07/25/2015 DTAP/TDAP/TD VACCINES (2 - Td or Tdap) 04/19/2022 INFLUENZA VACCINE (#1) 2025 Insurance [employer] [id number] HMO Care Teams Boiler Fireman Relationship Specialty Start Date End Date Satya Bright MD [address] [address] PCP - General Family Practice 01/26/16
[2025-08-12 13:54] VITALS: BP 107/64; PULSE 83; RESP 16; TEMP 36.7; O2SAT 95
[2025-08-12 14:32] LABS: Hematocrit 40.4 % (37-53); Hemoglobin 13.00 g/dL (11.27-16.99); Mean Corpuscular HGB Conc 32.2 g/dL (30-55); Mean Corpuscular Hemoglobin 29.5 pg (27-33); Mean Corpuscular Volume 91.8 fl (82-101); Nucleated Red Blood Cells % 0 %; Platelet Count 258 10^3/cmm (157-399); Red Blood Count 4.40 10^6/uL (3.85-5.65); White Blood Count 6.93 10^3/uL (3.29-11.43)
[2025-08-12 14:50] LABS: Alanine Aminotransferase 34 U/L (0-41); Albumin Level 4.2 g/dL (3.5-5.2); Alkaline Phosphatase 187 U/L (40-130); Anion Gap 16.0 (5-19); Aspartate Amino Transferase 39 U/L (0-40); Blood Urea Nitrogen 16 mg/dL (8-23); Calcium 9.7 mg/dL (8.5-10.5); Carbon Dioxide 26 mmol/L (22-29); Chloride 103 mmol/L (98-107); Creatinine Clr Calc Pharmacy 72.4573; Globulin 3.1 g/dL (1.3-4.6); Glucose 96 mg/dL (65-115); Osmolality Calculated 293 mOsm/kg (285-295); Potassium 4.0 mmol/L (3.5-5.1); Sodium 141 mmol/L (136-145); Total Protein 7.3 g/dL (6.6-8.7)
[2025-08-12 17:53] VITALS: BP 133/77; PULSE 88; O2SAT 95
--- NOTE | 2025-08-12 18:00 | PC.NURSE ---
pt attempting to obtain urine sample, unsuccessful at this time.
--- NOTE | 2025-08-12 18:07 | CTR_ITS ---
PROCEDURE INFORMATION: Exam: CT Head Without Contrast Exam date and time: 08/12/2025 6:46 PM Age: 85 years old Clinical indication: Injury or trauma; Blunt trauma (contusions or hematomas); Patient brought in by family for multiple falls over the last two days. Patient appears somewhat confused. Anticoagulated. ; Additional info: Fall, injury to head/neck TECHNIQUE: Imaging protocol: Computed tomography of the head without contrast. Radiation optimization: All CT scans at this facility use at least one of these dose optimization techniques: automated exposure control; mA and/or kV adjustment per patient size (includes targeted exams where dose is matched to clinical indication); or iterative reconstruction. COMPARISON: CT head wo/w con [id number] 12/27/2020 10:12 AM RADIATION DOSE METRICS: Total DLP (mGy-cm): 1390.38 FINDINGS: Brain: Mild cerebral parenchymal atrophy and chronic microvascular parenchymal change. No vasogenic edema or mass effect. No intracranial hemorrhage or extra-axial fluid collection . No midline shift. Cerebral ventricles: No ventriculomegaly. Paranasal sinuses: Visualized sinuses are unremarkable. No fluid levels. Mastoid air cells: Visualized mastoid air cells are well aerated. Bones: Unremarkable. No acute fracture. Soft tissues: Unremarkable. Other findings: The study is somewhat degraded by motion artifact. CT/CT head wo con* [id number] IMPRESSION: No acute intracranial abnormality within the limitations of the study.
--- NOTE | 2025-08-12 18:07 | XRR_ITS ---
PROCEDURE INFORMATION: Exam: XR Right Hip Exam date and time: 08/12/2025 6:21 PM Age: 85 years old Clinical indication: Hip pain; Right hip; Additional info: RT lower ext pain post fall TECHNIQUE: Imaging protocol: Radiologic exam of the right hip. Views: 1 view hip with pelvis when performed. COMPARISON: No relevant prior studies available. FINDINGS: Bones/joints: Osseous demineralization. Normal alignment. No evidence of acute fracture or dislocation. Moderate degenerative changes of the hips. Apparent enthesophyte arising from the lesser trochanter. Soft tissues: The soft tissues are within normal limits. XR/XR hip RT 2-3V wo/w pel* [id number] IMPRESSION: No evidence of acute fracture or dislocation.
--- NOTE | 2025-08-12 18:07 | CTR_ITS ---
PROCEDURE INFORMATION: Exam: CT Cervical Spine Without Contrast Exam date and time: 08/12/2025 6:48 PM Age: 85 years old Clinical indication: Injury or trauma; Blunt trauma; Patient brought in by family for multiple falls over the last two days. Patient appears somewhat confused. Anticoagulated. ; Additional info: Fall, injury to head/neck TECHNIQUE: Imaging protocol: Computed tomography of the cervical spine without contrast. Radiation optimization: All CT scans at this facility use at least one of these dose optimization techniques: automated exposure control; mA and/or kV adjustment per patient size (includes targeted exams where dose is matched to clinical indication); or iterative reconstruction. COMPARISON: CT head wo con* [id number] 08/12/2025 6:46 PM RADIATION DOSE METRICS: Total DLP (mGy-cm): 248.78 FINDINGS: Bones: Moderate to advanced facet arthropathy at C3-C4, C4-C5 levels. [id number] anterior endplate osteophytosis and moderate multilevel uncovertebral arthropathy mild foraminal stenosis at C2-C3, moderate stenosis at C3-C4, C4-C5, C5-C6 and C6-C7. No fracture or traumatic malalignment. Mild anterolisthesis of C3 over C4 and C4 over C5 . No vertebral height loss.Fusion of the left C2-C5 and right C3-C5 isthmus noted moderate disc space narrowing at C5-C6. Large bridging osteophytosis at C4-T1 levels Lungs: 8 mm elongated nodule in the right apex (series 4, image 68). Thyroid: 1.2 cm hypodense left thyroid lobe nodule. Soft tissues: Unremarkable. CT/CT cervical spin wo con* [id number] IMPRESSION: 1. No acute fracture or traumatic malalignment. 2. Advanced multilevel cervical spondylosis. COMMENTS: Consistent with the [employer] [place]'s Incidental Findings Committee white paper (J Am Fco Radiol 2015): In patients aged 35 years and older with an incidental thyroid nodule equal to or greater than 1.[address], MRI or extrathyroidal US, further evaluation with dedicated thyroid US is recommended for patients with normal life expectancy and without comorbidities. For smaller nodules without suspicious features, no further evaluation or follow up is recommended.
--- NOTE | 2025-08-12 18:07 | XRR_ITS ---
PROCEDURE INFORMATION: Exam: XR Right Ankle Exam date and time: 08/12/2025 6:36 PM Age: 85 years old Clinical indication: Pain; Ankle; Right; Additional info: RT ankle pain post fall TECHNIQUE: Imaging protocol: Radiologic exam of the right ankle. Views: 3 or more views. COMPARISON: CR (LOW EXM, ) 08/12/2025 6:33 PM FINDINGS: Bones/joints: Mild osseous demineralization. Normal alignment. Tiny osseous fragment distal to the distal fibula, likely sequela of prior trauma. No definitive evidence of acute fracture or dislocation. Mild degenerative changes of the right ankle. Soft tissues: Diffuse soft tissue swelling. Vasculature: Peripheral atherosclerotic calcifications are present. XR/XR ankle RT min 3V* [id number] IMPRESSION: 1. Tiny osseous fragment distal to the distal fibula, likely sequela of prior trauma. Correlate with physical exam. 2. No definitive evidence of acute fracture or dislocation.
--- NOTE | 2025-08-12 18:07 | XRR_ITS ---
PROCEDURE INFORMATION: Exam: XR Chest Exam date and time: 08/12/2025 6:39 PM Age: 85 years old Clinical indication: Pain; Chest pressure; Additional info: SOB post fall TECHNIQUE: Imaging protocol: Radiologic exam of the chest. Views: 1 view. COMPARISON: CR XR chest 1V portable [id number] 10/03/2020 3:24 PM FINDINGS: Lungs: No pulmonary consolidation. Pleural spaces: No pleural effusion or pneumothorax. Heart/Mediastinum: Heart size is within normal limits. Bones/joints: No acute osseous abnormalities are seen. The patient is status post sternotomy. XR/XR chest 1V portable [id number] IMPRESSION: No acute cardiopulmonary disease.
--- NOTE | 2025-08-12 18:10 | XRR_ITS ---
PROCEDURE INFORMATION: Exam: XR Right Knee Exam date and time: 08/12/2025 6:33 PM Age: 85 years old Clinical indication: Pain; Knee; Bilateral; Additional info: Bilateral knee pain post fall TECHNIQUE: Imaging protocol: Radiologic exam of the right knee. Views: 1 or 2 views. COMPARISON: CR XR knees AP WB w BI lmt ORTH 01/21/2025 9:58 AM FINDINGS: Bones/joints: Osseous demineralization. Normal alignment. No evidence of acute fracture or dislocation. Severe tricompartmental degenerative change. Chondrocalcinosis is present. Small joint effusion. Soft tissues: The soft tissues are within normal limits. Vasculature: Peripheral atherosclerotic calcifications are present. XR/XR knee RT 1-2V [id number] IMPRESSION: No evidence of acute fracture or dislocation.
--- NOTE | 2025-08-12 18:10 | XRR_ITS ---
PROCEDURE INFORMATION: Exam: XR Left Knee Exam date and time: 08/12/2025 6:35 PM Age: 85 years old Clinical indication: Pain; Knee; Bilateral; Additional info: Bilateral knee pain post fall TECHNIQUE: Imaging protocol: Radiologic exam of the left knee. Views: 1 or 2 views. COMPARISON: CR XR knees AP WB w BI lmt ORTH 01/21/2025 9:58 AM FINDINGS: Bones/joints: Osseous demineralization. Normal alignment. No evidence of acute fracture or dislocation. Moderate tricompartmental degenerative change. No joint effusion. Soft tissues: The soft tissues are within normal limits. Vasculature: Peripheral atherosclerotic calcifications are present. XR/XR knee LT 1-2V [id number] IMPRESSION: No evidence of acute fracture or dislocation.
--- NOTE | 2025-08-12 18:13 | W.ED.FALL ---
HPI - Fall General: Chief Complaint: Fall Stated Complaint: multi-fall Time Seen by Provider: 08/12/25 17:46 History of Present Illness: Patient is a 85-year-old gentleman with history of depression, hypertension, hypothyroidism, HLD, who presents to the emergency room due to falls. Patient has had 2 falls over the last 3-5 days. His last fall was 2 days ago. Content: Last fall: In the kitchen, thinks his right knee gave out that is [id number] causing injury to his head, right ankle, and right hip. He fell on his right side. He was ambulatory at that time. He states that he is having hard time laying on his back, or getting comfortable. Fall 3-5 days ago: Patient is unsure, but believes that his knee gave out. He does believe he has a contusion to his head. He is not on anticoagulation. Associated symptoms-after fall: Denies abdominal pain, chest pain or headache(s) Related Data Home Medications ?Medication ?Instructions ?Recorded ?Confirmed atorvastatin 40 mg tablet 40 mg PO DAILY@0710/03/20 01/21/25 hydrocodone 5 mg-acetaminophen 325 1 tab PO Q6H PRN Pain 10/03/20 01/21/25 mg tablet levothyroxine 25 mcg tablet 25 mcg PO DAILY@0700 10/03/20 01/21/25 metoprolol tartrate 25 mg tablet 25 mg PO DAILY@0700 10/03/20 01/21/25 ascorbic acid (vitamin C) 500 mg 500 mg PO DAILY 02/21/22 01/21/25 tablet aspirin 81 mg tablet,delayed 81 mg PO DAILY 02/21/22 01/21/25 release (Adult Low Dose Aspirin) bupropion HCl 200 mg tablet,12 hr 200 mg PO BID 02/21/22 01/21/25 sustained-release folic acid 1 mg tablet 1 mg PO DAILY 02/21/22 01/21/25 paroxetine HCl 10 mg tablet 10 mg PO DAILY 12/20/22 01/21/25 Previous Rx's ?Medication ?Instructions ?Recorded cetirizine 10 mg tablet 10 mg PO BID PRN allergy symptoms 09/18/21 #30 tabs acetaminophen 300 mg-codeine 15 mg 1 tab PO BID PRN pain #14 tabs 04/15/22 tablet nitroglycerin 0.4 mg sublingual 0.4 mg sublingual Q5M PRN chest 07/15/22 tablet (Nitrostat) pain #25 tabs isosorbide mononitrate 10 mg tablet 10 mg PO DAILY #30 tabs 08/21/23 right medial asset protection professional brace #1 ea 01/21/25 Allergies Allergy/AdvReac Type Severity Reaction Status Date / Time No Known Allergies Allergy Verified 01/21/25 10:39 Review of Systems General: Reports: 10 or more systems reviewed and unremarkable except in HPI and below Const: Denies: fever(s), chills or fatigue Eyes: Denies: change in vision Card: Denies: chest pain or palpitations Resp: Denies: dyspnea GI: Denies: abdominal pain, nausea, vomiting, diarrhea or constipation : Denies: flank pain Musc: Reports: back pain, extremity pain, joint pain, joint stiffness, limited range of motion, muscle cramps and decrease in muscle mass Neuro: Denies: headache(s) or numbness in extremities Psych: Denies: suicidal ideation Rex/Lymph: Denies: easy bruising PFSH ED PFSH: Medical History (Updated 08/12/25 @ 23:56 by KEY Wilkerson) RBBB Depression Hypertension Hyperlipidemia Hypothyroidism Surgical History S/P CABG x 3 Social History Smoking and tobacco/nicotine status: never used tobacco/nicotine Alcohol intake: never Physical Exam Const: COMMON NORMALS: no acute distress and alert HENMT: COMMON NORMALS: normocephalic and atraumatic HEAD & SCALP: normocephalic and atraumatic Eye: COMMON NORMALS: Equal, round and reactive pupils present and EOMs intact bilaterally PUPIL: Yes Equal, round and reactive pupils present Neck/C-Spine: COMMON NORMALS: full ROM and no lymphadenopathy Lymph: LYMPHATIC: no lymphadenopathy noted Chest: COMMONS NORMALS: normal inspection of the chest and normal palpation of entire chest wall Resp: COMMON NORMALS: normal respiratory effort and No retractions Cardio: COMMON NORMALS: regular rate, regular rhythm and Peripheral pulses 2+ throughout RATE: regular rate RHYTHM: regular rhythm HEART SOUNDS: Murmur heart sound present (systolic ejection) PERIPHERAL PULSES: Peripheral pulses 2+ throughout GI: COMMON NORMALS: Normal to inspection, nondistended, normoactive bowel sounds present, Soft to palpation and non-tender PALPATION: Yes Soft to palpation : COMMON NORMALS: Yes no CVA tenderness BLADDER/KIDNEY EXAM: Yes no CVA tenderness Back/Pelvis: COMMON NORMALS: no CVA tenderness LUMBAR SPINE/LOWER BACK: Yes pain with ROM, Yes lumbar spinal tenderness and Yes paraspinal muscle tenderness SACROILIAC JOINTS: Yes SI joint(s) abnormal SI joint details: pain elicited by compression of iliac crest maneuver Extremity: NARRATIVE EXTREMITY EXAM: bilateral Knee exam Patellar crepitus bilateral. Right ankle: Distal lateral malleolus tenderness. Right hip, iliac crest tenderness. Neuro: SENSORIUM/ORIENTATION: Yes alert Skin: GENERAL SKIN EXAM: dry skin Course Consultations: Consultation #1: [id number]: Cannot get ahold of Dr. Paula / now found out, out of office Consultation #2: Dr. Mensah at [facility] says it will have to go to trauma hospitalist and they will have to consult him if needed. Vital Signs: Vital signs: Vital Signs Temperature 98.1 F 08/12/25 13:54 Pulse Rate 102 H 08/12/25 23:50 Respiratory Rate 20 H 08/12/25 18:25 Blood Pressure 119/71 08/12/25 23:50 Pulse Oximetry 93 08/12/25 23:50 Oxygen Delivery Me thod Room Air 08/12/25 18:25 MDM - Fall Medical Decision Making Discussed with [facility], they stated this would be a hospitalist/trauma admission due to the fall. Patient is not able to ambulate, and is not safe for discharge. Still awaiting after 2 hours here back from [facility]. Lab Data 08/12/25 14:15 08/12/25 14:15 Radiology Impressions Ankle X-Ray 08/12/25 18:07 IMPRESSION: 1. Tiny osseous fragment distal to the distal fibula, likely sequela of prior trauma. Correlate with physical exam. 2. No definitive evidence of acute fracture or dislocation. Cervical Spine CT 08/12/25 18:07 IMPRESSION: 1. No acute fracture or traumatic malalignment. 2. Advanced multilevel cervical spondylosis. COMMENTS: Consistent with the [place] [employer]'s Incidental Findings Committee white paper (J Am Fco Radiol 2015): In patients aged 35 years and older with an incidental thyroid nodule equal to or greater than 1.[address], MRI or extrathyroidal US, further evaluation with dedicated thyroid US is recommended for patients with normal life expectancy and without comorbidities. For smaller nodules without suspicious features, no further evaluation or follow up is recommended. ADDENDUM: 08/12/25 2008 8 mm right apical nodule is likely due to nonspecific pleural-parenchymal thickening although follow-up CT in 6 months may be considered according to the Fleischner guidelines. Chest X-Ray 08/12/25 18:07 IMPRESSION: No acute cardiopulmonary disease. Head CT 08/12/25 18:07 IMPRESSION: No acute intracranial abnormality within the limitations of the study. Hip/Pelvis X-Ray 08/12/25 18:07 IMPRESSION: No evidence of acute fracture or dislocation. Knee X-Ray 08/12/25 18:10 IMPRESSION: No evidence of acute fracture or dislocation. Pelvis CT 08/12/25 18:47 IMPRESSION: 1. Acute appearing fracture of the anterior aspect of the right L4 vertebral body. There are some sclerotic changes adjacent to the fracture which may be subacute. 2. No other evidence of acute fracture in the pelvis. Laboratory Results WBC 6.93 10^3/uL (3.29-11.43) 08/12/25 14:15 RBC 4.40 10^6/uL (3.85-5.65) 08/12/25 14:15 Hgb 13.00 g/dL (11.27-16.99) 08/12/25 14:15 Hct 40.4 % (37-53) 08/12/25 14:15 MCV 91.8 fl (82-101) 08/12/25 14:15 MCH 29.5 pg (27-33) 08/12/25 14:15 MCHC 32.2 g/dL (30-55) 08/12/25 14:15 RDW 15.1 % (12.1-15.1) 08/12/25 14:15 Plt Count 258 10^3/cmm (157-399) 08/12/25 14:15 MPV 11.2 fL (7.4-10.4) H 08/12/25 14:15 Neut % (Auto) 59.6 % 08/12/25 14:15 Lymph % (Auto) 26.6 % 08/12/25 14:15 [place] % (Auto) 8.5 % 08/12/25 14:15 Eos % (Auto) 4.0 % 08/12/25 14:15 Baso % (Auto) 1.0 % 08/12/25 14:15 Neut # (Auto) 4.13 10^3/uL (1.8-7.7) 08/12/25 14:15 Lymph # (Auto) 1.8 10^3/uL (0.8-4.8) 08/12/25 14:15 [place] # (Auto) 0.6 10^3/uL (0.2-0.9) 08/12/25 14:15 Eos # (Auto) 0.3 10^3/uL (0.0-0.8) 08/12/25 14:15 Baso # (Auto) 0.1 10^3/uL (0.0-0.1) 08/12/25 14:15 Nucleated RBC % (auto) 0 % 08/12/25 14:15 Nucleated RBCs # 0.0 /100WBC 08/12/25 14:15 Sodium 141 mmol/L (136-145) 08/12/25 14:15 Potassium 4.0 mmol/L (3.5-5.1) 08/12/25 14:15 Chloride 103 mmol/L (98-107) 08/12/25 14:15 Carbon Dioxide 26 mmol/L (22-29) 08/12/25 14:15 Anion Gap 16.0 (5-19) 08/12/25 14:15 BUN 16 mg/dL (8-23) 08/12/25 14:15 Creatinine 0.7 mg/dL (0.7-1.2) 08/12/25 14:15 GFR Calculation Not Reportable 08/12/25 14:15 Glucose 96 mg/dL (65-115) 08/12/25 14:15 Calculated Osmolality 293 mOsm/kg (285-295) 08/12/25 14:15 Calcium 9.7 mg/dL (8.5-10.5) 08/12/25 14:15 Total Bilirubin 0.8 mg/dL (0.15-1.2) 08/12/25 14:15 AST 39 U/L (0-40) 08/12/25 14:15 ALT 34 U/L (0-41) 08/12/25 14:15 Alkaline Phosphatase 187 U/L (40-130) H 08/12/25 14:15 Total Protein 7.3 g/dL (6.6-8.7) 08/12/25 14:15 Albumin 4.2 g/dL (3.5-5.2) 08/12/25 14:15 Globulin 3.1 g/dL (1.3-4.6) 08/12/25 14:15 Urine Color Yellow (Yellow) 08/12/25 18:04 Urine Appearance Clear (CLEAR) 08/12/25 18:04 Urine pH 5.5 (5-7) 08/12/25 18:04 Ur Specific [place] 1.016 (1.005-1.030) 08/12/25 18:04 Urine Protein Negative (Negative) 08/12/25 18:04 Urine Glucose (UA) Negative (Normal) 08/12/25 18:04 Urine Ketones Negative (Negative) 08/12/25 18:04 Urine Blood Non-haemolysed trace (Negative) 08/12/25 18:04 Urine Nitrate Negative (Negative) 08/12/25 18:04 Urine Bilirubin Negative (Negative) 08/12/25 18:04 Urine Urobilinogen 1.0 mg/dL (Negative) 08/12/25 18:04 Ur Leukocyte Esterase 2+ (Negative) A 08/12/25 18:04 Urine RBC 6-10 /hpf (0-2) 08/12/25 18:04 Urine WBC 51-100 /hpf (0-5) H 08/12/25 18:04 Ur Squamous Epith Cells 0-5 /hpf (0-5) 08/12/25 18:04 Amorphous Sediment Not Reportable 08/12/25 18:04 Urine Bacteria Trace /hpf (NONE) 08/12/25 18:04 Hyaline Casts 0-4 /lpf H 08/12/25 18:04 All radiology interpretation(s) finalized by discharge Discharge Plan Discharge Patient Disposition: Xfer Short-Term Hosp Clinical Impression: Closed L4 vertebral fracture Qualifiers: Encounter type: initial encounter Fracture morphology: other fracture Qualified Code(s): S32.048A - Other fracture of fourth lumbar vertebra, initial encounter for closed fracture Closed fracture of distal end of right fibula Qualifiers: Encounter type: initial encounter Fracture morphology: other fracture Qualified Code(s): S82.831A - Other fracture of upper and lower end of right fibula, initial encounter for closed fracture Condition: Stable Referrals: Satya Bright MD [Primary Care Provider, [facility]] Discharge Diet: Usual diet Discharge Activity: Resume usual activity Print Language: Citizen [place] Coding Level of Care Code ED Cooper Helper for Dorian Marie
[2025-08-12] MEDS: ondansetron 2 mg/ML SDV 2 mL 4 MG IVP (18:24)
[2025-08-12] MEDS: fentaNYL 50 mcg/mL INJ 2mL 25 MCG IVP (18:24)
[2025-08-12 18:25] VITALS: BP 166/88; PULSE 94; RESP 20; O2SAT 94
[2025-08-12 18:28] LABS: Glucose Urine UA Negative (Normal); Nitrate Urine Negative (Negative); Specific Gravity, Urine 1.016 (1.005-1.030)
[2025-08-12 18:33] LABS: Add Urine Microscopic? YES
--- NOTE | 2025-08-12 18:47 | CTR_ITS ---
PROCEDURE INFORMATION: Exam: CT Pelvis Without Contrast, Skeleton Exam date and time: 08/12/2025 6:51 PM Age: 85 years old Clinical indication: Injury or trauma; Blunt trauma (contusions or hematomas); Right; Multiple falls over last two days. C/O RT hip pain. ; Additional info: Multiple falls, RT hip pain TECHNIQUE: Imaging protocol: Computed tomography of the pelvis without contrast. Exam focused on the skeleton. Radiation optimization: All CT scans at this facility use at least one of these dose optimization techniques: automated exposure control; mA and/or kV adjustment per patient size (includes targeted exams where dose is matched to clinical indication); or iterative reconstruction. COMPARISON: CR (PELVIS, ) 08/12/2025 6:21 PM RADIATION DOSE METRICS: Total DLP (mGy-cm): 626.76 FINDINGS: Intestine: Mild colonic diverticulosis without diverticulitis. There is no large or small bowel obstruction. There is no evidence of bowel wall thickening. Appendix: A normal appendix is identified. Intraperitoneal space: No inflammatory changes are identified. There is no free fluid or fluid collection seen. There is no pneumoperitoneum. Reproductive: Moderate prostatomegaly. Urinary bladder: The bladder is unremarkable. Bones/joints: This takes longer mild osseous demineralization. Fusion of the sacroiliac joints. Acute appearing fracture of the anterior aspect of the right L4 vertebral body. No other evidence of acute fracture. [id number] degenerative changes of the femoroacetabular joints. Soft tissues: The soft tissues are within normal limits. CT/CT bony pelvis 37514 IMPRESSION: 1. Acute appearing fracture of the anterior aspect of the right L4 vertebral body. There are some sclerotic changes adjacent to the fracture which may be subacute. 2. No other evidence of acute fracture in the pelvis.
[2025-08-12 20:43] VITALS: BP 129/77; PULSE 111
[2025-08-12] MEDS: fentaNYL 50 mcg/mL INJ 2mL IVP (22:07)
[2025-08-12 22:09] VITALS: BP 133/73; PULSE 104; O2SAT 93
[2025-08-12] MEDS: HYDROcodone-acetaminophen 5-325 mg Tablet 1 TAB PO (23:45)
[2025-08-12] MEDS: cefTRIAXone 1,000 mg SDV 1000 MG IVP (23:47)
[2025-08-12 23:50] VITALS: BP 119/71; PULSE 102; O2SAT 93
[2025-08-13] VITALS (9 sets, daily range): BP systolic 102–146; BP diastolic 66–97; PULSE 66–107; RESP 16–18; TEMP 36.5–36.8; O2SAT 90–98; BMI 25.7
--- NOTE | 2025-08-13 00:27 | W.ED.FALL ---
Documented by User: KEY Wilkerson 08/13/25 01:20 HPI - Fall General: Chief Complaint: Fall Stated Complaint: multi-fall Time Seen by Provider: 08/12/25 17:46 History of Present Illness: Patient is an 85-year-old gentleman. Please see other chart. Related Data Home Medications ?Medication ?Instructions ?Recorded ?Confirmed atorvastatin 40 mg tablet 40 mg PO DAILY@0700 10/03/20 01/21/25 hydrocodone 5 mg-acetaminophen 325 1 tab PO Q6H PRN Pain 10/03/20 01/21/25 mg tablet levothyroxine 25 mcg tablet 25 mcg PO DAILY@0700 10/03/20 01/21/25 metoprolol tartrate 25 mg tablet 25 mg PO DAILY@0710/03/20 01/21/25 ascorbic acid (vitamin C) 500 mg 500 mg PO DAILY 02/21/22 01/21/25 tablet aspirin 81 mg tablet,delayed 81 mg PO DAILY 02/21/22 01/21/25 release (Adult Low Dose Aspirin) bupropion HCl 200 mg tablet,12 hr 200 mg PO BID 02/21/22 01/21/25 sustained-release folic acid 1 mg tablet 1 mg PO DAILY 02/21/22 01/21/25 paroxetine HCl 10 mg tablet 10 mg PO DAILY 12/20/22 01/21/25 Previous Rx's ?Medication ?Instructions ?Recorded cetirizine 10 mg tablet 10 mg PO BID PRN allergy symptoms 09/18/21 #30 tabs acetaminophen 300 mg-codeine 15 mg 1 tab PO BID PRN pain #14 tabs 04/15/22 tablet nitroglycerin 0.4 mg sublingual 0.4 mg sublingual Q5M PRN chest 07/15/22 tablet (Nitrostat) pain #25 tabs isosorbide mononitrate 10 mg tablet 10 mg PO DAILY #30 tabs 08/21/23 right medial ore puncher brace #1 ea 01/21/25 Allergies Allergy/AdvReac Type Severity Reaction Status Date / Time No Known Allergies Allergy Verified 01/21/25 10:39 FORMERLY [facility] ED PFS: Medical History (Updated 08/13/25 @ 02:23 by Zofia Leon MD) RBBB Depression Hypertension Hyperlipidemia Hypothyroidism Surgical History S/P CABG x 3 Social History Smoking and tobacco/nicotine status: never used tobacco/nicotine Alcohol intake: never Course Vital Signs: Vital signs: Vital Signs Temperature 98.1 F 08/12/25 13:54 Pulse Rate 66 08/13/25 02:04 Respiratory Rate 20 H 08/12/25 18:25 Blood Pressure 111/69 08/13/25 02:04 Pulse Oximetry 98 08/13/25 02:04 Oxygen Delivery Me thod Room Air 08/12/25 18:25 MDM - Fall Medical Decision Making Leola discussed with Dr. Mensah, that stated he would only perform surgery outpatient. Leola discussed with orthopedist that stated he would only perform surgery outpatient [facility] discussed with hospitalist that stated he recommended physical therapy. Lab Data 08/12/25 14:15 08/12/25 14:15 Radiology Impressions Ankle X-Ray 08/12/25 18:07 IMPRESSION: 1. Tiny osseous fragment distal to the distal fibula, likely sequela of prior trauma. Correlate with physical exam. 2. No definitive evidence of acute fracture or dislocation. Cervical Spine CT 08/12/25 18:07 IMPRESSION: 1. No acute fracture or traumatic malalignment. 2. Advanced multilevel cervical spondylosis. COMMENTS: Consistent with the [employer]'s Incidental Findings Committee white paper (J Am Fco Radiol 2015): In patients aged 35 years and older with an incidental thyroid nodule equal to or greater than 1.[address], MRI or extrathyroidal US, further evaluation with dedicated thyroid US is recommended for patients with normal life expectancy and without comorbidities. For smaller nodules without suspicious features, no further evaluation or follow up is recommended. ADDENDUM: 08/12/25 2008 8 mm right apical nodule is likely due to nonspecific pleural-parenchymal thickening although follow-up CT in 6 months may be considered according to the Fleischner guidelines. Chest X-Ray 08/12/25 18:07 IMPRESSION: No acute cardiopulmonary disease. Head CT 08/12/25 18:07 IMPRESSION: No acute intracranial abnormality within the limitations of the study. Hip/Pelvis X-Ray 08/12/25 18:07 IMPRESSION: No evidence of acute fracture or dislocation. Knee X-Ray 08/12/25 18:10 IMPRESSION: No evidence of acute fracture or dislocation. Pelvis CT 08/12/25 18:47 IMPRESSION: 1. Acute appearing fracture of the anterior aspect of the right L4 vertebral body. There are some sclerotic changes adjacent to the fracture which may be subacute. 2. No other evidence of acute fracture in the pelvis. Laboratory Results WBC 6.93 10^3/uL (3.29-11.43) 08/12/25 14:15 RBC 4.40 10^6/uL (3.85-5.65) 08/12/25 14:15 Hgb 13.00 g/dL (11.27-16.99) 08/12/25 14:15 Hct 40.4 % (37-53) 08/12/25 14:15 MCV 91.8 fl (82-101) 08/12/25 14:15 MCH 29.5 pg (27-33) 08/12/25 14:15 MCHC 32.2 g/dL (30-55) 08/12/25 14:15 RDW 15.1 % (12.1-15.1) 08/12/25 14:15 Plt Count 258 10^3/cmm (157-399) 08/12/25 14:15 MPV 11.2 fL (7.4-10.4) H 08/12/25 14:15 Neut % (Auto) 59.6 % 08/12/25 14:15 Lymph % (Auto) 26.6 % 08/12/25 14:15 Pershing % (Auto) 8.5 % 08/12/25 14:15 Eos % (Auto) 4.0 % 08/12/25 14:15 Baso % (Auto) 1.0 % 08/12/25 14:15 Neut # (Auto) 4.13 10^3/uL (1.8-7.7) 08/12/25 14:15 Lymph # (Auto) 1.8 10^3/uL (0.8-4.8) 08/12/25 14:15 Pershing # (Auto) 0.6 10^3/uL (0.2-0.9) 08/12/25 14:15 Eos # (Auto) 0.3 10^3/uL (0.0-0.8) 08/12/25 14:15 Baso # (Auto) 0.1 10^3/uL (0.0-0.1) 08/12/25 14:15 Nucleated RBC % (auto) 0 % 08/12/25 14:15 Nucleated RBCs # 0.0 /100WBC 08/12/25 14:15 Sodium 141 mmol/L (136-145) 08/12/25 14:15 Potassium 4.0 mmol/L (3.5-5.1) 08/12/25 14:15 Chloride 103 mmol/L (98-107) 08/12/25 14:15 Carbon Dioxide 26 mmol/L (22-29) 08/12/25 14:15 Anion Gap 16.0 (5-19) 08/12/25 14:15 BUN 16 mg/dL (8-23) 08/12/25 14:15 Creatinine 0.7 mg/dL (0.7-1.2) 08/12/25 14:15 GFR Calculation Not Reportable 08/12/25 14:15 Glucose 96 mg/dL (65-115) 08/12/25 14:15 Calculated Osmolality 293 mOsm/kg (285-295) 08/12/25 14:15 Calcium 9.7 mg/dL (8.5-10.5) 08/12/25 14:15 Total Bilirubin 0.8 mg/dL (0.15-1.2) 08/12/25 14:15 AST 39 U/L (0-40) 08/12/25 14:15 ALT 34 U/L (0-41) 08/12/25 14:15 Alkaline Phosphatase 187 U/L (40-130) H 08/12/25 14:15 Total Protein 7.3 g/dL (6.6-8.7) 08/12/25 14:15 Albumin 4.2 g/dL (3.5-5.2) 08/12/25 14:15 Globulin 3.1 g/dL (1.3-4.6) 08/12/25 14:15 Urine Color Yellow (Yellow) 08/12/25 18:04 Urine Appearance Clear (CLEAR) 08/12/25 18:04 Urine pH 5.5 (5-7) 08/12/25 18:04 Ur Specific [place] 1.016 (1.005-1.030) 08/12/25 18:04 Urine Protein Negative (Negative) 08/12/25 18:04 Urine Glucose (UA) Negative (Normal) 08/12/25 18:04 Urine Ketones Negative (Negative) 08/12/25 18:04 Urine Blood Non-haemolysed trace (Negative) 08/12/25 18:04 Urine Nitrate Negative (Negative) 08/12/25 18:04 Urine Bilirubin Negative (Negative) 08/12/25 18:04 Urine Urobilinogen 1.0 mg/dL (Negative) 08/12/25 18:04 Ur Leukocyte Esterase 2+ (Negative) A 08/12/25 18:04 Urine RBC 6-10 /hpf (0-2) 08/12/25 18:04 Urine WBC 51-100 /hpf (0-5) H 08/12/25 18:04 Ur Squamous Epith Cells 0-5 /hpf (0-5) 08/12/25 18:04 Amorphous Sediment Not Reportable 08/12/25 18:04 Urine Bacteria Trace /hpf (NONE) 08/12/25 18:04 Hyaline Casts 0-4 /lpf H 08/12/25 18:04 All radiology interpretation(s) finalized by discharge Discharge Plan Discharge Patient Disposition: Xfer Short-Term Hosp Clinical Impression: Closed L4 vertebral fracture Qualifiers: Encounter type: initial encounter Fracture morphology: other fracture Qualified Code(s): S32.048A - Other fracture of fourth lumbar vertebra, initial encounter for closed fracture Closed fracture of distal end of right fibula Qualifiers: Encounter type: initial encounter Fracture morphology: other fracture Qualified Code(s): S82.831A - Other fracture of upper and lower end of right fibula, initial encounter for closed fracture Condition: Stable Referrals: Satya Bright MD [Primary Care Provider, [facility]] Discharge Diet: Usual diet Discharge Activity: Resume usual activity Print Language: [place] Coding Level of Care Code ED Flat Sorting Machine Clerk for Chg Fwd Documented by User: Niko Navas DO 08/13/25 03:05 HPI - Fall General: Chief Complaint: Fall Stated Complaint: multi-fall Time Seen by Provider: 08/12/25 17:46 Related Data Home Medications ?Medication ?Instructions ?Recorded ?Confirmed atorvastatin 40 mg tablet 40 mg PO DAILY@0700 10/03/20 01/21/25 hydrocodone 5 mg-acetaminophen 325 1 tab PO Q6H PRN Pain 10/03/20 01/21/25 mg tablet levothyroxine 25 mcg tablet 25 mcg PO DAILY@0700 10/03/20 01/21/25 metoprolol tartrate 25 mg tablet 25 mg PO DAILY@0710/03/20 01/21/25 ascorbic acid (vitamin C) 500 mg 500 mg PO DAILY 02/21/22 01/21/25 tablet aspirin 81 mg tablet,delayed 81 mg PO DAILY 02/21/22 01/21/25 release (Adult Low Dose Aspirin) bupropion HCl 200 mg tablet,12 hr 200 mg PO BID 02/21/22 01/21/25 sustained-release folic acid 1 mg tablet 1 mg PO DAILY 02/21/22 01/21/25 paroxetine HCl 10 mg tablet 10 mg PO DAILY 12/20/22 01/21/25 Previous Rx's ?Medication ?Instructions ?Recorded cetirizine 10 mg tablet 10 mg PO BID PRN allergy symptoms 09/18/21 #30 tabs acetaminophen 300 mg-codeine 15 mg 1 tab PO BID PRN pain #14 tabs 04/15/22 tablet nitroglycerin 0.4 mg sublingual 0.4 mg sublingual Q5M PRN chest 07/15/22 tablet (Nitrostat) pain #25 tabs isosorbide mononitrate 10 mg tablet 10 mg PO DAILY #30 tabs 08/21/23 right medial ore puncher brace #1 ea 01/21/25 Allergies Allergy/AdvReac Type Severity Reaction Status Date / Time No Known Allergies Allergy Verified 01/21/25 10:39 PFS ED PFS: Medical History (Updated 08/13/25 @ 02:23 by Zofia Leon MD) RBBB Depression Hypertension Hyperlipidemia Hypothyroidism Surgical History S/P CABG x 3 Social History Smoking and tobacco/nicotine status: never used tobacco/nicotine Alcohol intake: never Course Vital Signs: Vital signs: Vital Signs Temperature 98.1 F 08/12/25 13:54 Pulse Rate 66 08/13/25 02:04 Respiratory Rate 20 H 08/12/25 18:25 Blood Pressure 111/69 08/13/25 02:04 Pulse Oximetry 98 08/13/25 02:04 Oxygen Delivery Me thod Room Air 08/12/25 18:25 MDM - Fall Medical Decision Making Leola discussed with Dr. Mensah, that stated he would only perform surgery outpatient. Leola discussed with orthopedist that stated he would only perform surgery outpatient [facility] discussed with hospitalist that stated he recommended physical therapy. This patient was originally seen by Ms. Say PA-C. I agree with her history, evaluation, and management. Lab Data 08/12/25 14:15 08/12/25 14:15 Radiology Impressions Ankle X-Ray 08/12/25 18:07 IMPRESSION: 1. Tiny osseous fragment distal to the distal fibula, likely sequela of prior trauma. Correlate with physical exam. 2. No definitive evidence of acute fracture or dislocation. Cervical Spine CT 08/12/25 18:07 IMPRESSION: 1. No acute fracture or traumatic malalignment. 2. Advanced multilevel cervical spondylosis. COMMENTS: Consistent with the [employer]'s Incidental Findings Committee white paper (J Am Fco Radiol 2015): In patients aged 35 years and older with an incidental thyroid nodule equal to or greater than 1.[address], MRI or extrathyroidal US, further evaluation with dedicated thyroid US is recommended for patients with normal life expectancy and without comorbidities. For smaller nodules without suspicious features, no further evaluation or follow up is recommended. ADDENDUM: 08/12/25 2008 8 mm right apical nodule is likely due to nonspecific pleural-parenchymal thickening although follow-up CT in 6 months may be considered according to the Fleischner guidelines. Chest X-Ray 08/12/25 18:07 IMPRESSION: No acute cardiopulmonary disease. Head CT 08/12/25 18:07 IMPRESSION: No acute intracranial abnormality within the limitations of the study. Hip/Pelvis X-Ray 08/12/25 18:07 IMPRESSION: No evidence of acute fracture or dislocation. Knee X-Ray 08/12/25 18:10 IMPRESSION: No evidence of acute fracture or dislocation. Pelvis CT 08/12/25 18:47 IMPRESSION: 1. Acute appearing fracture of the anterior aspect of the right L4 vertebral body. There are some sclerotic changes adjacent to the fracture which may be subacute. 2. No other evidence of acute fracture in the pelvis. Laboratory Results WBC 6.93 10^3/uL (3.29-11.43) 08/12/25 14:15 RBC 4.40 10^6/uL (3.85-5.65) 08/12/25 14:15 Hgb 13.00 g/dL (11.27-16.99) 08/12/25 14:15 Hct 40.4 % (37-53) 08/12/25 14:15 MCV 91.8 fl (82-101) 08/12/25 14:15 MCH 29.5 pg (27-33) 08/12/25 14:15 MCHC 32.2 g/dL (30-55) 08/12/25 14:15 RDW 15.1 % (12.1-15.1) 08/12/25 14:15 Plt Count 258 10^3/cmm (157-399) 08/12/25 14:15 MPV 11.2 fL (7.4-10.4) H 08/12/25 14:15 Neut % (Auto) 59.6 % 08/12/25 14:15 Lymph % (Auto) 26.6 % 08/12/25 14:15 Pershing % (Auto) 8.5 % 08/12/25 14:15 Eos % (Auto) 4.0 % 08/12/25 14:15 Baso % (Auto) 1.0 % 08/12/25 14:15 Neut # (Auto) 4.13 10^3/uL (1.8-7.7) 08/12/25 14:15 Lymph # (Auto) 1.8 10^3/uL (0.8-4.8) 08/12/25 14:15 [place] # (Auto) 0.6 10^3/uL (0.2-0.9) 08/12/25 14:15 Eos # (Auto) 0.3 10^3/uL (0.0-0.8) 08/12/25 14:15 Baso # (Auto) 0.1 10^3/uL (0.0-0.1) 08/12/25 14:15 Nucleated RBC % (auto) 0 % 08/12/25 14:15 Nucleated RBCs # 0.0 /100WBC 08/12/25 14:15 Sodium 141 mmol/L (136-145) 08/12/25 14:15 Potassium 4.0 mmol/L (3.5-5.1) 08/12/25 14:15 Chloride 103 mmol/L (98-107) 08/12/25 14:15 Carbon Dioxide 26 mmol/L (22-29) 08/12/25 14:15 Anion Gap 16.0 (5-19) 08/12/25 14:15 BUN 16 mg/dL (8-23) 08/12/25 14:15 Creatinine 0.7 mg/dL (0.7-1.2) 08/12/25 14:15 GFR Calculation Not Reportable 08/12/25 14:15 Glucose 96 mg/dL (65-115) 08/12/25 14:15 Calculated Osmolality 293 mOsm/kg (285-295) 08/12/25 14:15 Calcium 9.7 mg/dL (8.5-10.5) 08/12/25 14:15 Total Bilirubin 0.8 mg/dL (0.15-1.2) 08/12/25 14:15 AST 39 U/L (0-40) 08/12/25 14:15 ALT 34 U/L (0-41) 08/12/25 14:15 Alkaline Phosphatase 187 U/L (40-130) H 08/12/25 14:15 Total Protein 7.3 g/dL (6.6-8.7) 08/12/25 14:15 Albumin 4.2 g/dL (3.5-5.2) 08/12/25 14:15 Globulin 3.1 g/dL (1.3-4.6) 08/12/25 14:15 Urine Color Yellow (Yellow) 08/12/25 18:04 Urine Appearance Clear (CLEAR) 08/12/25 18:04 Urine pH 5.5 (5-7) 08/12/25 18:04 Ur Specific [place] 1.016 (1.005-1.030) 08/12/25 18:04 Urine Protein Negative (Negative) 08/12/25 18:04 Urine Glucose (UA) Negative (Normal) 08/12/25 18:04 Urine Ketones Negative (Negative) 08/12/25 18:04 Urine Blood Non-haemolysed trace (Negative) 08/12/25 18:04 Urine Nitrate Negative (Negative) 08/12/25 18:04 Urine Bilirubin Negative (Negative) 08/12/25 18:04 Urine Urobilinogen 1.0 mg/dL (Negative) 08/12/25 18:04 Ur Leukocyte Esterase 2+ (Negative) A 08/12/25 18:04 Urine RBC 6-10 /hpf (0-2) 08/12/25 18:04 Urine WBC 51-100 /hpf (0-5) H 08/12/25 18:04 Ur Squamous Epith Cells 0-5 /hpf (0-5) 08/12/25 18:04 Amorphous Sediment Not Reportable 08/12/25 18:04 Urine Bacteria Trace /hpf (NONE) 08/12/25 18:04 Hyaline Casts 0-4 /lpf H 08/12/25 18:04 Discharge Plan Discharge Patient Disposition: Xfer Short-Term Hosp Clinical Impression: Closed L4 vertebral fracture Qualifiers: Encounter type: initial encounter Fracture morphology: other fracture Qualified Code(s): S32.048A - Other fracture of fourth lumbar vertebra, initial encounter for closed fracture Closed fracture of distal end of right fibula Qualifiers: Encounter type: initial encounter Fracture morphology: other fracture Qualified Code(s): S82.831A - Other fracture of upper and lower end of right fibula, initial encounter for closed fracture Condition: Stable Referrals: Satya Bright MD [Primary Care Provider, [facility]] Discharge Diet: Usual diet Discharge Activity: Resume usual activity Print Language: [place] Coding Level of Care Code ED Flat Sorting Machine Clerk for Dorian Marie
--- NOTE | 2025-08-13 02:05 | PM.HP ---
Providers/Chief Complaint Admitting Physician: ZOFIA LEON--DO --patient admitted after 12 midnight to observation stay Primary Care Provider: Satya Bright MD Chief Complaint: multi-fall History of Present Illness Kenneth Li is a 85 year old male presented to the emergency room after having fallen a couple of times at home with now back pain. Evaluation in the emergency room were significant for an L4 vertebral body fracture and a right small tibia fracture should be nonweight bearing. Patient lives alone with their who is very demented at home. Friends had accompanied him to the emergency room and worry about how he is going to do if he was to discharge home. The bigger problem is the norm with as needed to the right lower extremity because of tibia fracture. The attending in the emergency room had called [facility] and they were not able to take him. Our spine doctor Dr. PARTIDA is out of town patient cannot be safely discharged to the at home because of a none bearing weight for this 85-year-old male. ED attending asked me to admit this patient to observation other doctors and the other facility had said that patient needed to be seen outpatient is not for admission. Because there will not be a safe discharge if patient goes home from the ED at this time. I had asked the ED attending to follow up with the house provide so regarding this. This was discussed with Butch from the administration according to the ED attending and they felt that the patient can be observation and will follow through with subsequent care. I had seen this patient earlier before midnight and now is the time that the ED attending knew that the patient is not going to be accepted by [facility] or any other place that she had tried. I am now admitting patient observation for pain management and physical therapy with no weight as needed to the right lower extremity because of a tibia fracture. Pain management is with morphine and Toradol per order Review of Systems Narrative: System review upon tenogram reviewed we are noted to be significant for musculoskeletal because of fractures of L4 and right tibia Medications/Allergies Home Medications ?Medication ?Instructions ?Recorded ?Confirmed ?Last Taken ?Type atorvastatin 40 mg tablet 40 mg PO DAILY@0700 10/03/20 01/21/25 10/03/20 History hydrocodone 5 mg-acetaminophen 325 1 tab PO Q6H PRN Pain 10/03/20 01/21/25 10/03/20 History mg tablet levothyroxine 25 mcg tablet 25 mcg PO DAILY@0700 10/03/20 01/21/25 10/03/20 History metoprolol tartrate 25 mg tablet 25 mg PO DAILY@0700 10/03/20 01/21/25 10/03/20 History cetirizine 10 mg tablet 10 mg PO BID PRN allergy symptoms 09/18/21 01/21/25 Unknown Rx #30 tabs ascorbic acid (vitamin C) 500 mg 500 mg PO DAILY 02/21/22 01/21/25 Unknown History tablet aspirin 81 mg tablet,delayed 81 mg PO DAILY 02/21/22 01/21/25 Unknown History release (Adult Low Dose Aspirin) bupropion HCl 200 mg tablet,12 hr 200 mg PO BID 02/21/22 01/21/25 Unknown History sustained-release folic acid 1 mg tablet 1 mg PO DAILY 02/21/22 01/21/25 Unknown History acetaminophen 300 mg-codeine 15 mg 1 tab PO BID PRN pain #14 tabs 04/15/22 01/21/25 Unknown Rx tablet nitroglycerin 0.4 mg sublingual 0.4 mg sublingual Q5M PRN chest 07/15/22 01/21/25 Unknown Rx tablet (Nitrostat) pain #25 tabs paroxetine HCl 10 mg tablet 10 mg PO DAILY 12/20/22 01/21/25 Unknown History isosorbide mononitrate 10 mg tablet 10 mg PO DAILY #30 tabs 08/21/23 01/21/25 Unknown Rx right medial group account director brace #1 ea 01/21/25 01/21/25 Unknown Rx Allergies Allergy/AdvReac Type Severity Reaction Status Date / Time No Known Allergies Allergy Verified 01/21/25 10:39 PFSH Acute PFSH: Medical History RBBB Depression Hypertension Hyperlipidemia Hypothyroidism Surgical History S/P CABG x 3 Social History Smoking and tobacco/nicotine status: never used tobacco/nicotine Alcohol intake: never Vitals/I&O/Wt Last Vital Signs Temp 98.1 F 08/12/25 13:54 Pulse 66 08/13/25 02:04 Resp 20 H 08/12/25 18:25 BP 111/69 08/13/25 02:04 Pulse Ox 98 08/13/25 02:04 O2 Del Method Room Air 08/12/25 18:25 Weight last 48 hrs Weight 83.915 kg Physical Exam Narrative: Generally patient is doing okay HEENT normocephalic atraumatic neck neck is supple cardiovascular heart rate is regular lungs are pretty much clear abdomen soft nontender nondistended unremarkable extremities are intact no edema has good pulses neurology has no focality lab studies lab studies reviewed and noted Data 08/12/25 14:15 08/12/25 14:15 A&P Assessment and plan 1. L4 vertebral fracture: 2. Right tibial fracture: 3. Disorder of weight bearing due to abnormality of bone: 4. Pain aggravated by exercise: Plan: L4 vertebral body fracture - Patient status post fall sustaining L4 fracture - Admit to general medical floor under observation for pain management - Patient is being managed with Toradol and morphine - Will continue to follow through and optimize Small right tibia fracture - This is none with as needed - PT OT to teach patient regarding ambulation - Regarding assisted device for walking - Case management consulted to help with discharge planning for skilled facility to help patient heal Disposition - Patient must follow-up with a spine doctor concerning the L4 fracture, Dr. KELLY is not in town - Patient need to follow through with care or outpatient kyphoplasty. - No we are was able to accept the patient at this time and administration felt patient can be in for observation and I feel that case management can try to see if patient gets to skill care and optimize care Regarding healing pain management prior to returning home GI and DVT prophylaxis in place PDMP PDMP Reviewed: Last Reviewed 08/13/25 02:27 by Zofia Leon MD Attestations Medical Necessity Statement*: Patient aids with none with as needed lower extremity right tibia will need some help for pain management of this and also right-sided L4 vertebral fracture will allow a day or 2 to optimize care with sending patient to skilled to optimize care. Will need at least 23 hours stay to 48. Coding Level of Care Code 69827 Diagnoses L4 vertebral fracture S32.049A Right tibial fracture S82.201A Disorder of weight bearing due to abnormality of bone M89.8X9 Pain aggravated by exercise R52 Time Spent (min) 60
[2025-08-13] MEDS: heparin 5,000 unit/mL INJ 1 mL 5000 UNIT SUBCUT ×2 (05:16→17:03)
[2025-08-13 05:28] LABS: Hematocrit 40.9 % (37-53); Hemoglobin 13.20 g/dL (11.27-16.99); Mean Corpuscular HGB Conc 32.3 g/dL (30-55); Mean Corpuscular Hemoglobin 29.7 pg (27-33); Mean Corpuscular Volume 91.9 fl (82-101); Nucleated Red Blood Cells % 0 %; Platelet Count 235 10^3/cmm (157-399); Red Blood Count 4.45 10^6/uL (3.85-5.65); White Blood Count 8.90 10^3/uL (3.29-11.43)
[2025-08-13 05:48] LABS: Alanine Aminotransferase 34 U/L (0-41); Albumin Level 4.0 g/dL (3.5-5.2); Alkaline Phosphatase 180 U/L (40-130); Anion Gap 18.2 (5-19); Aspartate Amino Transferase 48 U/L (0-40); Blood Urea Nitrogen 18 mg/dL (8-23); Calcium 9.4 mg/dL (8.5-10.5); Carbon Dioxide 23 mmol/L (22-29); Chloride 102 mmol/L (98-107); Creatinine Clr Calc Pharmacy 7.5129; Globulin 2.9 g/dL (1.3-4.6); Glucose 91 mg/dL (65-115); Magnesium 1.9 mg/dL (1.7-2.3); Osmolality Calculated 289 mOsm/kg (285-295); Potassium 4.2 mmol/L (3.5-5.1); Sodium 139 mmol/L (136-145); Total Protein 6.9 g/dL (6.6-8.7)
[2025-08-13] MEDS: morphine 4 mg/mL SDV 1 mL IVP (05:54)
--- NOTE | 2025-08-13 12:30 | P.EN_ITS ---
Event Note Event Note: 82-year-old gentleman presented after a fall with the back pain currently admitted for further OT PT evaluation and disposition accordingly Patient also found to have L4 vertebral body fracture the patient did not report any severe back pain and is receiving adequate analgesia. There is also a small right tibial fracture. OT PT evaluated. Case management to work over the weekdays for further safe discharge with recommendations of OT PT and may also further benefit from home health aide [facility] gram-negative's in alf since the patient lives alone with his who is also unable to take care of herself. Event Notes Attestations Time Spent in Patient Care: 16 - 35 minutes (>than 50% of time sp ent in counselling and/or direct pt care on unit) .
--- NOTE | 2025-08-13 17:57 | PC.NURSE ---
pts family requested gait belt from tube heater, they then transferred pt back to bed themselves, refused staff assistance.
[2025-08-13 20:42] LABS: Glucose Urine UA Negative (Normal); Nitrate Urine Positive (Negative); Specific Gravity, Urine 1.030 (1.005-1.030)
[2025-08-13 20:45] LABS: Add Urine Microscopic? YES; Universal Test for UA Present (0)
[2025-08-14] VITALS (11 sets, daily range): BP systolic 95–144; BP diastolic 59–75; PULSE 84–110; RESP 16–18; TEMP 36.4–37.5; O2SAT 91–99
[2025-08-14] MEDS: cefTRIAXone 2,000 mg SDV 2000 MG IVP (04:10)
[2025-08-14] MEDS: heparin 5,000 unit/mL INJ 1 mL 5000 UNIT SUBCUT ×2 (04:11→17:30)
[2025-08-14] MEDS: morphine 4 mg/mL SDV 1 mL IVP ×2 (11:08→15:11)
--- NOTE | 2025-08-14 16:49 | PM.PN ---
Subjective Subjective: Patient was seen in the morning and was a little bit of confused, Reorientation was done and the patient was calm and cooperative The patient reported mild right elbow pain however no difficulty in any range of motion. And requested some pain medication Vitals/I&O/Wt Last Vital Signs Temp 98.1 F 08/14/25 15:56 Pulse 110 H 08/14/25 15:56 Resp 18 08/14/25 15:56 BP 138/65 08/14/25 15:56 Pulse Ox 96 08/14/25 15:56 O2 Del Method Nasal Cannula 08/14/25 15:56 O2 Flow Rate 2 08/14/25 00:00 08/14/25 08/14/25 08/14/25 06:59 14:59 22:59 Intake Total 500 / 1520 60 / 60 Output Total 100 / 300 Balance 400 / 1220 60 / 60 Weight last 48 hrs Weight 86.001 kg Weight 8.165 kg Weight 83.915 kg Physical Exam Narrative: General: Alert and oriented to self and place, lying comfortably without any distress with mild right elbow pain and left hip pain HEENT: Grossly unremarkable exam Cardio: Sinus tachycardia, normal S1-S2 without any murmurs, rubs, or gallops and JVD normal Respiratory: normal vascular breathing on auscultation without any wheezes, stridor, rhonchi GI: Abdomen soft, nontender, nondistended, normoactive bowel sounds present all 4 quadrants, patient on diapers and Wheatley's catheter Neuro: Patient is oriented to self only gross neurological examination is unremarkable Behavior: Appropriate and cooperative Extremities: Adequate palpable pulses, mild trace edema Urinary Catheter Management: Wheatley: Cath Placed During This Visit: yes Reason for Continuing Indwelling Catheter: Acute Urinary Retention or Obstruction Urinary Catheter Date of Insertion: 08/13/25 Urinary Catheter Time of Insertion: 05:31 Data 08/13/25 05:15 08/13/25 05:15 Micro: Microbiology 08/12/25 18:04 Urine Culture - Final Urine,Clean Catch A&P Assessment and plan 1. L4 vertebral fracture: Patient currently stable, able to participate in physical therapy Patient for SNF placement at the time of discharge Adequate analgesia to continue 2. Pain aggravated by exercise: Good analgesia to provide 3. PAD (peripheral artery disease): Continue on home dose of aspirin and statins 4. Hyperlipidemia: Continue home dose statins 40 mg atorvastatin 5. Hypertension: Patient blood pressure on the higher side, to resume home medications diabetes losartan 25 mg daily and metoprolol 12.5 mg twice daily. 6. S/P CABG x 3: Continue aspirin and statin with metoprolol 12.5 mg twice daily 7. Hypothyroidism: Continue home dose of levothyroxine 25 mcg daily 8. Arthritis of both hands: Adequate analgesia and physical therapy PDMP PDMP Reviewed: Not Reviewed Attestations Medical Necessity Statement*: Patient will stay overnight for the arrangement of home disposition?SNF Following PT recommendation for optimization of patient care Time Spent in Patient Care: 16 - 35 minutes (>than 50% of time spent in counselling and/or direct pt care on unit). Other Attestations: Patient condition has been discussed at length with the patient/family, I have independently reviewed the chart labs imaging/diagnostics/EKG. the goals of care and code status with the patient/family/NOK/legal correspondence representative, and documented accordingly. The patient/family has been informed about the current condition and further plan of care. Agreed with the plan of care and understood without any language barrier. Every effort was made to ensure accuracy of blow molding machine tender. Any obvious errors or omissions should be clarified with the author of the document. Coding Level of Care Code Acute Code for Chg Fwd Diagnoses L4 vertebral fracture S32.049A Pain aggravated by exercise R52 PAD (peripheral artery disease) I73.9 Hyperlipidemia E78.5 Hypertension I10 S/P CABG x 3 Z95.1 Hypothyroidism E03.9 Arthritis of both hands M19.041; M19.042
[2025-08-14] MEDS: oxyCODONE-APAP 5-325 mg Tablet 1 TAB PO (17:30)
[2025-08-14] MEDS: artificial tears Op Soln 15 mL Btl 1 DROP EYE-BOTH (17:30)
[2025-08-15] VITALS (7 sets, daily range): BP systolic 99–134; BP diastolic 54–78; PULSE 66–92; RESP 16–18; TEMP 36.6–37.6; O2SAT 90–96; BMI 27.6
[2025-08-15] MEDS: oxyCODONE-APAP 5-325 mg Tablet 1 TAB PO (03:10)
[2025-08-15 03:39] LABS: Hematocrit 38.3 % (37-53); Hemoglobin 12.20 g/dL (11.27-16.99); Mean Corpuscular HGB Conc 31.9 g/dL (30-55); Mean Corpuscular Hemoglobin 30.3 pg (27-33); Mean Corpuscular Volume 95.0 fl (82-101); Nucleated Red Blood Cells % 0 %; Platelet Count 191 10^3/cmm (157-399); Red Blood Count 4.03 10^6/uL (3.85-5.65); White Blood Count 9.69 10^3/uL (3.29-11.43)
[2025-08-15 03:59] LABS: Alanine Aminotransferase 44 U/L (0-41); Albumin Level 3.7 g/dL (3.5-5.2); Alkaline Phosphatase 241 U/L (40-130); Aspartate Amino Transferase 67 U/L (0-40); Blood Urea Nitrogen 33 mg/dL (8-23); Calcium 8.8 mg/dL (8.5-10.5); Carbon Dioxide 24 mmol/L (22-29); Chloride 103 mmol/L (98-107); Creatinine Clr Calc Pharmacy 53.2546; Globulin 2.8 g/dL (1.3-4.6); Glucose 96 mg/dL (65-115); Osmolality Calculated 297 mOsm/kg (285-295); Sodium 140 mmol/L (136-145); Total Protein 6.5 g/dL (6.6-8.7)
[2025-08-15 04:02] LABS: Anion Gap 17.4 (5-19); Potassium 4.4 mmol/L (3.5-5.1)
[2025-08-15] MEDS: cefTRIAXone 2,000 mg SDV 2000 MG IVP (04:42)
[2025-08-15] MEDS: heparin 5,000 unit/mL INJ 1 mL 5000 UNIT SUBCUT ×2 (04:42→17:10)
[2025-08-15] MEDS: LOSARTAN 25 MG TABLET PO (04:44)
--- NOTE | 2025-08-15 09:21 | PC.CHAP ---
Pastoral Care Encounter/Spiritual Assessment Type of Contact [] Declined ux developer designer visit [] Patient/Family/Request visit [] Outpatient visit [] Follow-up visit [] Physician referral [] Code/Alert [x] Routine visit [] Staff referral [] Actively dying [x] Patient sleeping [] Family support [] [] Out of room [] Palliative care [] [] Receiving care in room [] Pre-surgical visit [] Trauma [] Long length of stay [] ICU visit [] Other: Relational/Emotional Strength [] Patient feels connected with others/family/visitors/staff [] Distress [] Loneliness/isolation [] Abandonment Spirituality of Patient [] Person of Charlene [] Attends Confucianist of their Charlene [] Believes in Prayer [] Reads Bible or Rastafarian materials [] There are Spiritual issues to be addressed Process Chemist Interventions [x] Prayer [] Active listening [] Non-anxious presence [] Spiritual/emotional support [] Crisis/trauma care [] Spiritual counseling [] Bereavement support [] Provided bereavement packet [] Provided Bible/devotional materials [] Provided toy/stuffed animal, coloring book to patient or family member [] Provided Communion [] Anointing/[place] [] Salvation [] Completed spiritual assessment [] Other: Impact on Illness or Injury [] Angry [] Fearful [] Anxious [] Often cries [] Exhaustion [] Unable to work [] Unable to attend yarsani [] Unable to walk/stand [] Unable to read [] Unable to drive [] Unable to eat/drink [] Unable to sleep [] Unable to be with family [] Patient intubated [] Other: Summary Time spent with patient
--- NOTE | 2025-08-15 14:31 | P.PN_ITS ---
Subjective 2 Subjective: Patient was seen in the morning and doing well as per the family, no acute concerns There was a relative of the family in the room who further took information about the patient plan of care to inform his son and to have further follow-up postdischarge with a spine surgeon considering patient having a fracture of the vertebra Further elaboration was provided on patient's plan of care based on his current mobility. And also explained since he has a fracture of vertebra but no symptoms of spinal cord compression or paralysis of his lower extremities, he is being managed with adequate occupational and physical therapy with further postdischarge referrals to manage his fracture. Vitals/I&O/Wt Last Vital Signs Temp 98.4 F 08/15/25 12:34 Pulse 67 08/15/25 12:34 Resp 17 08/15/25 12:34 BP 99/60 08/15/25 12:34 Pulse Ox 96 08/15/25 12:34 O2 Del Method Nasal Cannula 08/15/25 12:34 O2 Flow Rate 2 08/14/25 23:25 08/14/25 08/15/25 08/15/25 22:59 06:59 14:59 Intake Total 600 / 600 Output Total 400 / 400 450 / 850 Balance -400 / -340 -450 / -790 600 / 600 Weight last 48 hrs Weight 90.083 kg Weight 86.001 kg Physical Exam 2 Narrative: General: Alert and oriented to self and place, lying comfortably without any distress with mild right elbow pain which is improving as per the patient HEENT: Grossly unremarkable exam Cardio: Normal heart rate,, normal S1-S2 without any murmurs, rubs, or gallops and JVD normal Respiratory: normal vascular breathing on auscultation without any wheezes, stridor, rhonchi GI: Abdomen soft, nontender, nondistended, normoactive bowel sounds present all 4 quadrants, patient on diapers and Wheatley's catheter Neuro: Patient is oriented to self only gross neurological examination is unremarkable Behavior: Appropriate and cooperative Extremities: Adequate palpable pulses, mild trace edema, mild tenderness at the right elbow, did not report any significant right hip or left hip pain today and no tenderness elicited Urinary Catheter Management: Wheatley: Cath Placed During This Visit: yes Reason for Continuing Indwelling Catheter: Other Urinary Catheter Date of Insertion: 08/13/25 Urinary Catheter Time of Insertion: 05:31 Data 08/15/25 03:00 08/15/25 03:00 Micro: Microbiology 08/13/25 20:30 Urine Culture - Preliminary Urine,Clean Catch 08/12/25 18:04 Urine Culture - Final Urine,Clean Catch A&P Assessment and plan 1. L4 vertebral fracture: Patient currently stable, able to participate in physical therapy Patient for custodial placement at the time of discharge Adequate analgesia to continue 2. Transaminitis: Repeat liver panel Acute hepatitis workup Ultrasound liver Patient did not have leukocytosis, urine cultures unremarkable and patient did not report any symptoms of UTI therefore there is no clinical indication or recommendation to proceed with antibiotics and infection has been ruled out, therefore based on the risk and benefits, we will to discontinue antibiotics. Reduce atorvastatin dose considering patient elevation of liver enzymes 3. Pain aggravated by exercise: Good analgesia to provide 4. PAD (peripheral artery disease): Continue on home dose of aspirin and statins 5. Hyperlipidemia: continue statins 6. Hypertension: Patient blood pressure is on the softer side, hold losartan Hold metoprolol 7. S/P CABG x 3: Continue aspirin and statin hold BB considering BP is on the softer side 8. Hypothyroidism: Continue home dose of levothyroxine 25 mcg daily 9. Arthritis of both hands: Adequate analgesia and physical therapy PDMP PDMP Reviewed: Not Reviewed Attestations 2 Medical Necessity Statement*: Patient will stay overnight for the management of his fall requiring OT PT evaluation and further disposition to custodial Time Spent in Patient Care: 16 - 35 minutes (>than 50% of time sp ent in counselling and/or direct pt care on unit) . Other Attestations: Patient condition has been discussed at length with the patient/family, I have independently reviewed the chart labs imaging/diagnostics/EKG. the goals of care and code status with the patient/family/NOK/legal security representative, and documented accordingly. The patient/family has been informed about the current condition and further plan of care. Agreed with the plan of care and understood without any language barrier. Every effort was made to ensure accuracy of pre k special education teacher. Any obvious errors or omissions should be clarified with the author of the document. Coding Level of Care Code 99761 Diagnoses L4 vertebral fracture S32.049A Transaminitis R74.01 Pain aggravated by exercise R52 PAD (peripheral artery disease) I73.9 Hyperlipidemia E78.5 Hypertension I10 S/P CABG x 3 Z95.1 Hypothyroidism E03.9 Arthritis of both hands M19.041; M19.042
--- NOTE | 2025-08-15 14:36 | US_ITS ---
WS: [id number] RIGHT UPPER QUADRANT ULTRASOUND HISTORY: Increased liver enzymes with T. bili COMPARISON: None available. Liver: 13.6 cm in length. Normal size liver and echogenicity. No bile duct dilatation or mass. Portal Vein: Normal hepatopetal flow with monophasic waveform. Gallbladder: Normally distended. There is mild diffuse gallbladder wall thickening which may be related to hepatocellular disease. No pericholecystic fluid. There is a stone in the gallbladder neck. This stone could be impacted as it does not move with patient positioning. CBD: 0.3 cm Pancreas: Completely obscured by bowel gas. Right kidney: 9.7 cm in length. Normal size and echogenicity. No hydronephrosis or mass. Aorta and IVC: Limited. No ascites. US/US liver 80399 IMPRESSION: 1. Cholelithiasis. There is a stone in the gallbladder neck which does not mov e with patient positioning. Could be entrapped at the gallbladder neck. 2. Normal common bile duct.
[2025-08-15 15:20] LABS: Hepatitis A Antibody IgM Non-Reactive (Nonreactive); Hepatitis B Surface Antigen Non-Reactive (Nonreactive)
[2025-08-15] MEDS: morphine 4 mg/mL SDV 1 mL IVP (16:05)
[2025-08-16] VITALS (8 sets, daily range): BP systolic 111–138; BP diastolic 51–77; PULSE 83–100; RESP 15–18; TEMP 36.6–37; O2SAT 91–96
[2025-08-16] MEDS: morphine 4 mg/mL SDV 1 mL IVP (00:59)
[2025-08-16 05:02] LABS: Hematocrit 35.6 % (37-53); Hemoglobin 11.40 g/dL (11.27-16.99); Mean Corpuscular HGB Conc 32.0 g/dL (30-55); Mean Corpuscular Hemoglobin 30.1 pg (27-33); Mean Corpuscular Volume 93.9 fl (82-101); Nucleated Red Blood Cells % 0 %; Platelet Count 191 10^3/cmm (157-399); Red Blood Count 3.79 10^6/uL (3.85-5.65); White Blood Count 7.73 10^3/uL (3.29-11.43)
[2025-08-16] MEDS: heparin 5,000 unit/mL INJ 1 mL 5000 UNIT SUBCUT ×2 (05:23→16:27)
[2025-08-16 05:27] LABS: Alanine Aminotransferase 34 U/L (0-41); Albumin Level 3.2 g/dL (3.5-5.2); Alkaline Phosphatase 240 U/L (40-130); Anion Gap 17.2 (5-19); Aspartate Amino Transferase 44 U/L (0-40); Blood Urea Nitrogen 38 mg/dL (8-23); Calcium 8.9 mg/dL (8.5-10.5); Carbon Dioxide 24 mmol/L (22-29); Chloride 102 mmol/L (98-107); Creatinine Clr Calc Pharmacy 54.3472; Globulin 2.9 g/dL (1.3-4.6); Glucose 95 mg/dL (65-115); Osmolality Calculated 297 mOsm/kg (285-295); Potassium 4.2 mmol/L (3.5-5.1); Sodium 139 mmol/L (136-145); Total Protein 6.1 g/dL (6.6-8.7)
[2025-08-16] MEDS: ATORVASTATIN 20 MG TABLET PO (07:33)
--- NOTE | 2025-08-16 13:33 | P.PN_ITS ---
Subjective 2 Subjective: Patient was seen in the morning and doing well as per the family, no acute concerns The patient family relative was in the room and he called the son with whom I had the discussion over the phone and explained all the plan of care and management further. He was aware of his father's situation and agreed with the medical team management and appreciated. Vitals/I&O/Wt Last Vital Signs Temp 97.9 F 08/16/25 11:32 Pulse 83 08/16/25 11:32 Resp 18 08/16/25 11:32 BP 111/65 08/16/25 11:32 Pulse Ox 91 08/16/25 11:32 O2 Del Method Room Air 08/16/25 11:32 O2 Flow Rate 2 08/16/25 08:21 08/15/25 08/16/25 08/16/25 22:59 06:59 14:59 Intake Total 480 / 1080 120 / 120 Output Total 500 / 500 200 / 700 Balance -20 / 580 -200 / 380 120 / 120 Weight last 48 hrs Weight 90.265 kg Weight 90.083 kg Physical Exam 2 Narrative: General: Alert and oriented to self and place, lying comfortably without any distress with mild right elbow pain which is improving as per the patient HEENT: Grossly unremarkable exam Cardio: Normal heart rate,, normal S1-S2 without any murmurs, rubs, or gallops and JVD normal Respiratory: normal vascular breathing on auscultation without any wheezes, stridor, rhonchi GI: Abdomen soft, nontender, nondistended, normoactive bowel sounds present all 4 quadrants, patient on diapers and Wheatley's catheter Neuro: Patient is oriented to self only gross neurological examination is unremarkable Behavior: Appropriate and cooperative Extremities: Adequate palpable pulses, mild trace edema, the patient reports generalized tenderness in his joints but able to move all with some limitation of range of motion especially in his hands secondary to high likely arthritis. Urinary Catheter Management: Wheatley: Cath Placed During This Visit: yes Reason for Continuing Indwelling Catheter: Acute Urinary Retention or Obstruction Urinary Catheter Date of Insertion: 08/13/25 Urinary Catheter Time of Insertion: 05:31 Data 08/16/25 04:47 08/16/25 04:47 Micro: Microbiology 08/13/25 20:30 Urine Culture - Final Urine,Clean Catch A&P Assessment and plan 1. L4 vertebral fracture: Patient currently stable, able to participate in physical therapy Patient for snf placement at the time of discharge and casework specialist on board for further proceed with it Adequate analgesia to continue Ortho/spine surgeon referral at the time of discharge 2. Transaminitis: Repeat liver panel improving Acute hepatitis workup negative Ultrasound liver showed gallbladder stone with CBD of 0.3 cm within normal range, no features of Cortney cystitis. Patient did not have leukocytosis, urine cultures unremarkable and patient did not report any symptoms of UTI therefore there is no clinical indication or recommendation to proceed with antibiotics and infection has been ruled out, therefore based on the risk and benefits, we will to discontinue antibiotics. Continue same management and monitor liver function 3. Pain aggravated by exercise: Good analgesia to provide 4. PAD (peripheral artery disease): Continue on home dose of aspirin and statins 5. Hyperlipidemia: continue statins 6. Hypertension: Patient blood pressure is on the softer side, hold losartan and hold beta- ean 7. S/P CABG x 3: Continue aspirin and statin 8. Hypothyroidism: Continue home dose of levothyroxine 25 mcg daily 9. Arthritis of both hands: Adequate analgesia and physical therapy PDMP PDMP Reviewed: Not Reviewed Attestations 2 Medical Necessity Statement*: Patient will stay overnight for further disposition to snf and awaiting casework specialist to proceed according Time Spent in Patient Care: 16 - 35 minutes (>than 50% of time sp ent in counselling and/or direct pt care on unit) . Other Attestations: Patient condition has been discussed at length with the patient/family, I have independently reviewed the chart labs imaging/diagnostics/EKG. the goals of care and code status with the patient/family/NOK/legal environmental marketing representative, and documented accordingly. The patient/family has been informed about the current condition and further plan of care. Agreed with the plan of care and understood without any language barrier. Every effort was made to ensure accuracy of special education secretary. Any obvious errors or omissions should be clarified with the author of the document. Coding Level of Care Code Acute Code for Chg Fwd Diagnoses L4 vertebral fracture S32.049A Transaminitis R74.01 Pain aggravated by exercise R52 PAD (peripheral artery disease) I73.9 Hyperlipidemia E78.5 Hypertension I10 S/P CABG x 3 Z95.1 Hypothyroidism E03.9 Arthritis of both hands M19.041; M19.042
[2025-08-17] VITALS (7 sets, daily range): BP systolic 127–144; BP diastolic 67–76; PULSE 70–97; RESP 16–18; TEMP 36.6–36.8; O2SAT 91–93
[2025-08-17] MEDS: oxyCODONE-APAP 5-325 mg Tablet 1 TAB PO (00:52)
[2025-08-17] MEDS: heparin 5,000 unit/mL INJ 1 mL 5000 UNIT SUBCUT (05:26)
[2025-08-17 05:38] LABS: Hematocrit 38.6 % (37-53); Hemoglobin 12.50 g/dL (11.27-16.99); Mean Corpuscular HGB Conc 32.4 g/dL (30-55); Mean Corpuscular Hemoglobin 30.1 pg (27-33); Mean Corpuscular Volume 93.0 fl (82-101); Nucleated Red Blood Cells % 0 %; Platelet Count 252 10^3/cmm (157-399); Red Blood Count 4.15 10^6/uL (3.85-5.65); White Blood Count 8.10 10^3/uL (3.29-11.43)
[2025-08-17 05:53] LABS: Alanine Aminotransferase 34 U/L (0-41); Albumin Level 3.4 g/dL (3.5-5.2); Alkaline Phosphatase 283 U/L (40-130); Anion Gap 16.6 (5-19); Aspartate Amino Transferase 38 U/L (0-40); Blood Urea Nitrogen 38 mg/dL (8-23); Calcium 9.2 mg/dL (8.5-10.5); Carbon Dioxide 24 mmol/L (22-29); Chloride 103 mmol/L (98-107); Creatinine Clr Calc Pharmacy 66.0387; Globulin 3.3 g/dL (1.3-4.6); Glucose 98 mg/dL (65-115); Osmolality Calculated 297 mOsm/kg (285-295); Potassium 4.6 mmol/L (3.5-5.1); Sodium 139 mmol/L (136-145); Total Protein 6.7 g/dL (6.6-8.7)
[2025-08-17] MEDS: ATORVASTATIN 20 MG TABLET PO (06:42)
--- NOTE | 2025-08-17 10:12 | PC.NURSE ---
Dr. Martin gave verbal orders patient is to discharge with hand catheter. [facility] can remove and do a voiding trial at facility.
--- NOTE | 2025-08-17 10:13 | PC.NURSE ---
Called report to Desean Velez LPN at [facility]. Reported patient is coming with a hand catheter. Dr. Martin gave veral orders to allow nursing facility to remove hand and do a voiding trial.
--- NOTE | 2025-08-17 13:05 | PM.DCS ---
Discharge Providers Date of Admission: 08/13/25 01:50 Date of Discharge: August 17, 2025 Attending Provider at Admission: Zofia Leon MD Attending Provider at Discharge: Jackie Martin MD Primary Care Provider: Satya Bright MD Diagnoses at Discharge Discharge Diagnosis 1. L4 vertebral fracture: 2. Transaminitis: 3. Pain aggravated by exercise: 4. PAD (peripheral artery disease): 5. Hyperlipidemia: 6. Hypertension: 7. S/P CABG x 3: 8. Hypothyroidism: 9. Arthritis of both hands: Reason for Visit Reason for Visit: multi-fall Brief History: Kenneth Li is a 85 year old male presented to the emergency room after having fallen a couple of times at home with now back pain. Evaluation in the emergency room were significant for an L4 vertebral body fracture and a right small tibia fracture should be nonweight bearing. Patient lives alone with their who is very demented at home. Friends had accompanied him to the emergency room and worry about how he is going to do if he was to discharge home. Hospital Course Hospital Course Due to presentation of fall, imaging studies were done, including the head CT which was unremarkable for any stroke. Patient had L4 vertebral fracture that was reviewed. And was also associated with some sclerotic changes. There were no clinical signs of spinal cord compression or any neuropathy. During patient hospital stay the patient was seen by the occupational and physical therapist. And after discussion with the son and the , the decision for fdc placement was made since the patient is not safe for discharge and is also unable to take care of himself. Adequate analgesia was provided for his back pain and generalized pain. Patient had UA and further urine cultures that did not show any infection. Patient was also found to have mild liver enzymes raised, ultrasound liver was done which showed only cholelithiasis without any dilation of the common bile duct. His statins dose were adjusted and later on his liver enzymes improved. Due to his mobility issue and concerns of urinary retention, Wheatley's catheter was placed which drained adequately and was also placed to monitor his intake and output. Patient was sent to fdc with the help of case management on board and discharged with Wheatley's catheter to fdc with voiding trial and further management of catheter care. Adequate referrals were made specially to the spine surgeon for the review of L4 vertebral fracture, and medications were reconciled for discharge as well Patient family concerns and questions were addressed and they appreciated the management of the medical team Patient condition has been discussed at length with the patient/family, I have independently reviewed the chart labs imaging/diagnostics/EKG. the goals of care and code status with the patient/family/NOK/legal printing supplies sales representative, and documented accordingly. The management has been done according to the current clinical condition with respect to patient goals of care and based on recommendations/guidelines. The patient/family has been informed about the current condition and further plan of care. Agreed with the plan of care and understood without any language barrier. Every effort was made to ensure accuracy of finance controller. Any obvious errors or omissions should be clarified with the author of the document. Physical Exam Narrative: General: Alert and oriented to self and place, lying comfortably without any distress with mild right elbow pain which is improving as per the patient HEENT: Grossly unremarkable exam Cardio: Normal heart rate,, normal S1-S2 without any murmurs, rubs, or gallops and JVD normal Respiratory: normal vascular breathing on auscultation without any wheezes, stridor, rhonchi GI: Abdomen soft, nontender, nondistended, normoactive bowel sounds present all 4 quadrants, patient on diapers and Wheatley's catheter Neuro: Patient is oriented to self only gross neurological examination is unremarkable Behavior: Appropriate and cooperative Extremities: Adequate palpable pulses, mild trace edema, the patient reports generalized tenderness in his joints but able to move all with some limitation of range of motion especially in his hands secondary to high likely arthritis. Urinary Catheter Management: Wheatley: Cath Placed During This Visit: yes Reason for Continuing Indwelling Catheter: Other Urinary Catheter Date of Insertion: 08/13/25 Urinary Catheter Time of Insertion: 05:31 Discharge Data Studies Completed and Pending Completed Studies During Hospitalization Category Date Time Status CT bony pelvis [id number] Stat Cat Scan 08/12/25 18:[address] cervical spin wo con* [id number] Stat Cat Scan 08/12/25 18:[address] head wo con* [id number] Stat Cat Scan 08/12/25 18:07 Completed XR ankle RT min 3V* [id number] Stat Exams 08/12/25 18:07 Completed XR chest 1V portable [id number] Stat Exams 08/12/25 18:07 Completed XR hip RT 2-3V wo/w pel* [id number] Stat Exams 08/12/25 18:07 Completed XR knee LT 1-2V [id number] Stat Exams 08/12/25 18:10 Completed XR knee RT 1-2V [id number] Stat Exams 08/12/25 18:10 Completed US liver [id number] Routine Ultrasound 08/15/25 14:36 Completed Radiology Impressions Ankle X-Ray 08/12/25 18:07 IMPRESSION: 1. Tiny osseous fragment distal to the distal fibula, likely sequela of prior trauma. Correlate with physical exam. 2. No definitive evidence of acute fracture or dislocation. Cervical Spine CT 08/12/25 18:07 IMPRESSION: 1. No acute fracture or traumatic malalignment. 2. Advanced multilevel cervical spondylosis. COMMENTS: Consistent with the [employer]'s Incidental Findings Committee white paper (J Am Fco Radiol 2015): In patients aged 35 years and older with an incidental thyroid nodule equal to or greater than 1.[address], MRI or extrathyroidal US, further evaluation with dedicated thyroid US is recommended for patients with normal life expectancy and without comorbidities. For smaller nodules without suspicious features, no further evaluation or follow up is recommended. ADDENDUM: 08/12/25 2008 8 mm right apical nodule is likely due to nonspecific pleural-parenchymal thickening although follow-up CT in 6 months may be considered according to the Fleischner guidelines. Chest X-Ray 08/12/25 18:07 IMPRESSION: No acute cardiopulmonary disease. Head CT 08/12/25 18:07 IMPRESSION: No acute intracranial abnormality within the limitations of the study. Hip/Pelvis X-Ray 08/12/25 18:07 IMPRESSION: No evidence of acute fracture or dislocation. Knee X-Ray 08/12/25 18:10 IMPRESSION: No evidence of acute fracture or dislocation. Pelvis CT 08/12/25 18:47 IMPRESSION: 1. Acute appearing fracture of the anterior aspect of the right L4 vertebral body. There are some sclerotic changes adjacent to the fracture which may be subacute. 2. No other evidence of acute fracture in the pelvis. Liver Ultrasound 08/15/25 14:36 IMPRESSION: 1. Cholelithiasis. There is a stone in the gallbladder neck which does not move with patient positioning. Could be entrapped at the gallbladder neck. 2. Normal common bile duct. Laboratory Results WBC 8.10 10^3/uL (3.29-11.43) 08/17/25 05:00 RBC 4.15 10^6/uL (3.85-5.65) 08/17/25 05:00 Hgb 12.50 g/dL (11.27-16.99) 08/17/25 05:00 Hct 38.6 % (37-53) 08/17/25 05:00 MCV 93.0 fl (82-101) 08/17/25 05:00 MCH 30.1 pg (27-33) 08/17/25 05:00 MCHC 32.4 g/dL (30-55) 08/17/25 05:00 RDW 14.8 % (12.1-15.1) 08/17/25 05:00 Plt Count 252 10^3/cmm (157-399) D 08/17/25 05:00 MPV 11.4 fL (7.4-10.4) H 08/17/25 05:00 Neut % (Auto) 57.7 % 08/17/25 05:00 Lymph % (Auto) 24.6 % 08/17/25 05:00 Haskell % (Auto) 9.3 % 08/17/25 05:00 Eos % (Auto) 7.8 % 08/17/25 05:00 Baso % (Auto) 0.5 % 08/17/25 05:00 Neut # (Auto) 4.68 10^3/uL (1.8-7.7) 08/17/25 05:00 Lymph # (Auto) 2.0 10^3/uL (0.8-4.8) 08/17/25 05:00 Haskell # (Auto) 0.8 10^3/uL (0.2-0.9) 08/17/25 05:00 Eos # (Auto) 0.6 10^3/uL (0.0-0.8) 08/17/25 05:00 Baso # (Auto) 0.0 10^3/uL (0.0-0.1) 08/17/25 05:00 Nucleated RBC % (auto) 0 % 08/17/25 05:00 Nucleated RBCs # 0.0 /100WBC 08/17/25 05:00 Sodium 139 mmol/L (136-145) 08/17/25 05:00 Potassium 4.6 mmol/L (3.5-5.1) 08/17/25 05:00 Chloride 103 mmol/L (98-107) 08/17/25 05:00 Carbon Dioxide 24 mmol/L (22-29) 08/17/25 05:00 Anion Gap 16.6 (5-19) 08/17/25 05:00 BUN 38 mg/dL (8-23) H 08/17/25 05:00 Creatinine 0.9 mg/dL (0.7-1.2) 08/17/25 05:00 GFR Calculation Not Reportable 08/17/25 05:00 Glucose 98 mg/dL (65-115) 08/17/25 05:00 Calculated Osmolality 297 mOsm/kg (285-295) H 08/17/25 05:00 Calcium 9.2 mg/dL (8.5-10.5) 08/17/25 05:00 Phosphorus 3.1 mg/dL (2.5-4.5) 08/13/25 05:15 Magnesium 1.9 mg/dL (1.7-2.3) 08/13/25 05:15 Total Bilirubin 0.8 mg/dL (0.15-1.2) 08/17/25 05:00 Direct Bilirubin 0.72 mg/dL (0.00-0.30) H 08/15/25 03:00 Direct Bilirubin Cancelled 08/15/25 03:00 AST 38 U/L (0-40) 08/17/25 05:00 ALT 34 U/L (0-41) 08/17/25 05:00 Alkaline Phosphatase 283 U/L (40-130) H 08/17/25 05:00 Total Protein 6.7 g/dL (6.6-8.7) 08/17/25 05:00 Albumin 3.4 g/dL (3.5-5.2) L 08/17/25 05:00 Globulin 3.3 g/dL (1.3-4.6) 08/17/25 05:00 Urine Color Irwin (Yellow) A 08/13/25 20:30 Urine Appearance Turbid (CLEAR) A 08/13/25 20:30 Urine pH 5.0 (5-7) 08/13/25 20:30 Ur Specific [place] 1.030 (1.005-1.030) 08/13/25 20:30 Urine Protein 2+ (Negative) A 08/13/25 20:30 Urine Glucose (UA) Negative (Normal) 08/13/25 20:30 Urine Ketones Trace (Negative) 08/13/25 20: Urine Blood 3+ (Negative) A 08/13/25 20:30 Urine Nitrate Positive (Negative) A 08/13/25 20:30 Urine Bilirubin 2+ (Negative) H 08/13/25 20:30 Urine Urobilinogen 2.0 mg/dL (Negative) H 08/13/25 20:30 Ur Leukocyte Esterase 2+ (Negative) A 08/13/25 20:30 Urine RBC >100 /hpf (0-2) H 08/13/25 20:30 Urine WBC >100 /hpf (0-5) H 08/13/25 20:30 Ur Squamous Epith Cells 0-5 /hpf (0-5) 08/13/25 20:30 Amorphous Sediment Not Reportable 08/13/25 20:30 Urine Bacteria Trace /hpf (NONE) 08/13/25 20: Hyaline Casts 3.30 /lpf 08/13/25 20:30 Hepatitis A IgM Ab Non-reactive (Nonreactive) 08/15/25 03:00 Hep Bs Antigen Non-reactive (Nonreactive) 08/15/25 03:00 Hep B Core IgM Ab Non-reactive (Nonreactive) 08/15/25 03:00 Hepatitis C Antibody Non-reactive (Nonreactive) 08/15/25 03:00 Vitals Last Vital Signs Temp 97.9 F 08/17/25 11:54 Pulse 70 08/17/25 11:54 Resp 18 08/17/25 11:54 BP 127/67 08/17/25 11:54 Pulse Ox 93 08/17/25 11:54 O2 Del Method Room Air 08/17/25 11:54 O2 Flow Rate 2 08/16/25 08:21 Discharge Plan Discharge Patient Disposition: Xfer SNF Condition: Stable Prescriptions: New atorvastatin 20 mg Tablet 20 mg PO DAILY@0700 60 Days Qty: 60 0RF Continued paroxetine HCl 10 mg tablet 10 mg PO DAILY aspirin [Adult Low Dose Aspirin] 81 mg tablet,delayed release (DR/EC) 81 mg PO DAILY ascorbic acid (vitamin C) 500 mg tablet 500 mg PO DAILY folic acid 1 mg tablet 1 mg PO DAILY (DME) right medial process artist brace See Rx Instructions .Route .MEDSUPPLY Qty: 1 0RF Rx Instructions: As directed levothyroxine 25 mcg tablet 25 mcg PO DAILY@0700 famotidine 20 mg tablet 20 mg PO BID losartan 25 mg tablet 25 mg PO DAILY diclofenac sodium 50 mg tablet,delayed release (DR/EC) 50 mg PO DAILY metoprolol tartrate 25 mg tablet 12.5 mg PO BID Discontinued atorvastatin 40 mg tablet 40 mg PO DAILY@0700 Discharge Order = DC NOW: Discharge Order (Routine); Ordered 08/17/25 Ordered By: Jackie Martin Referrals: [facility] [Outside] Juju Francois MD [Non-Staff, Orthopaedic Surgery of Spine] - 2 weeks Referral Note: Lumbar vertebra fracture, for further evaluation and management We have notified your physician's clinic of the need for a follow-up appointment to be scheduled. If you have not heard from them within the next 2 business days, please call them directly. Satya Bright MD [Primary Care Provider, Family Practice] - 4-7 days Referral Note: post discharge follow up Discharge Diet: Usual diet Discharge Activity: Resume usual activity Patient Instructions: Atorvastatin (By mouth), Opioid Safety, Patient Portal & Nicolette Instructions Discharge Attestations Time Spent in Discharge Care*: greater than 30 min Specific Discharge Activities: educating patient, educating and/or supporting family/caregiver, discussing with pcp/other providers, discussing with continuous pillowcase cutter/social workers/dc planners, documenting/other paperwork and evaluating patient/reviewing data Status at Discharge: Cognitive status at discharge: moderately impaired cognition, Behavioral status at discharge: dependent in ADL's, Functional status at discharge: other assisted ambulation, Overall status at discharge: patient is progressing back to baseline Quality Metrics Clinical Quality Measures [ No reported AMI, CVA or VTE this stay] Coding Level of Care Code Acute Code for Chg Fwd Diagnoses L4 vertebral fracture S32.049A Transaminitis R74.01 Pain aggravated by exercise R52 PAD (peripheral artery disease) I73.9 Hyperlipidemia E78.5 Hypertension I10 S/P CABG x 3 Z95.1 Hypothyroidism E03.9 Arthritis of both hands M19.041; M19.042
== END 2025-08-17 13:45 | disposition skilled nursing facility (03) ==
LOC: ER 22:12 → MEDSURG 08-13 03:55
PROVIDERS: Emergency Medicine; Admitting Provider Internal Medicine; Emergency Provider Physician Assistant; PCP Family Medicine; Visit Provider Student in an Organized Health Care Education/Training Program
DX: S32.049A Unspecified fracture of fourth lumbar vertebra, initial encounter for closed fracture (principal); S82.201A Unspecified fracture of shaft of right tibia, initial encounter for closed fracture; W19.XXXA Unspecified fall, initial encounter; R74.01 Elevation of levels of liver transaminase levels; I73.9 Peripheral vascular disease, unspecified; E78.5 Hyperlipidemia, unspecified; Z95.1 Presence of aortocoronary bypass graft; I10 Essential (primary) hypertension; E03.9 Hypothyroidism, unspecified; M19.041 Primary osteoarthritis, right hand; M19.042 Primary osteoarthritis, left hand; Z79.82 Long term (current) use of aspirin; Z79.891 Long term (current) use of opiate analgesic; I45.10 Unspecified right bundle-branch block
CPT/HCPCS: 36415; 51702; 70450; 71045; 72125; 72192; 73502; 73560; 73610; 76705; 80053; 80074; 81001; 82248; 83735; 84100; 85025; 87086; 96372; 96374; 96375; 96376; 97110; 97161; 97166; 97530; 97535; 99285; G0378; J0696; J1644; J1885; J2270; J2405; J3010; J7040; J9999

== ENCOUNTER → 2025-08-30 15:31 | Outpatient (BNVA) | payer OTHER, SELFPAY | PROVIDERS: PCP Family Medicine; Visit Provider Orthopaedic Surgery | DX: S32.049A Unspecified fracture of fourth lumbar vertebra, initial encounter for closed fracture (principal); W19.XXXA Unspecified fall, initial encounter | CPT/HCPCS: 72100; 99203 ==

== ENCOUNTER 2025-09-01 15:43 | Outpatient (CLI) | payer OTHER, SELFPAY ==
--- NOTE | 2025-09-01 16:00 | MR_ITS ---
WS: [id number] MRI LUMBAR SPINE NONCONTRAST TECHNIQUE: Sagittal T1, T2 and STIR imaging. Axial T1 and T2 imaging. CLINICAL INFORMATION: Back pain COMPARISON: CT pelvis 08/12/2025 FINDINGS: Axial imaging significant degraded by motion artifact. Mild lumbar curve. No acute compression. Multilevel degenerative disc disease throughout the lumbar spine. Anterior hypertrophic changes. Oblique fracture through the anterior superior endplate L5 with associated edema in the vertebral body. Associated edema in the prevertebral soft tissues compatible with recent acute compression. No retropulsion. Fracture extends into the L4-5 disc space. L1-L2: Mild disc bulging. Mild to moderate central canal stenosis. Narrowing of the subarticular recess. Moderate facet arthropathy. Mild bilateral foraminal narrowing. L2-L3: Severe central canal stenosis with disc bulging and a small annular fissure. Marked impingement on the subarticular recess. Moderate facet arthropathy. Moderate LEFT foraminal narrowing. L3-L4: Mild disc bulging with severe central canal stenosis. Facet arthropathy with ligamentum flavum hypertrophy. Mild LEFT and moderate RIGHT foraminal narrowing. L4-L5: Disc osteophyte complex with moderate central canal stenosis. Impingement of the subarticular recess. Moderate facet arthropathy. Moderate to severe RIGHT foraminal narrowing. L5-S1: Disc bulge with mild central canal stenosis. RIGHT paracentral protrusion impinges the RIGHT S1 nerve root. Mild to moderate bilateral foraminal narrowing. Partially visualized cortical atrophy with cystic lesions. Very limited evaluation due to motion. Moderate to severe central canal stenosis partially visualized on the principal accounts clerk imaging at the foramen magnum with a large amount of pannus formation. This can be further evaluated with cervical MRI if indicated MR/MR lumbar spine wo con* [id number] IMPRESSION: Axial imaging is significantly limited by patient motion. 1. Oblique fracture through the anterior superior endplate L5 vertebral body e xtending into the L4-5 disc space. Fracture extends from the RIGHT anterior carly tebral body obliquely into the L4-5 disc space and along the superior endplate. This also involves the RIGHT lateral L4-5 bridging osteophyte better seen on t he CT 2. Mild associated edema along the fracture cleft with some prevertebral soft tissue edema compatible with recent acute fracture. 3. No retropulsion. 4. Axial images are significantly limited with multilevel central canal stenos is. 5. Severe central canal stenosis L2-L3 and L3-L4. Moderate central canal steno sis L1-2 and L4-5. 6. Moderate to severe central canal stenosis partially visualized on the principal accounts clerk imaging at the foramen magnum with a large amount of pannus formation. This ca n be further evaluated with cervical MRI if indicated
== END 2025-09-01 15:44 | disposition home or self-care (01) ==
LOC: RAD 15:43
PROVIDERS: PCP Family Medicine; Visit Provider Orthopaedic Surgery
DX: S32.000A Wedge compression fracture of unspecified lumbar vertebra, initial encounter for closed fracture (principal); X58.XXXA Exposure to other specified factors, initial encounter; M51.369 Other intervertebral disc degeneration, lumbar region without mention of lumbar back pain or lower extremity pain; M48.061 Spinal stenosis, lumbar region without neurogenic claudication; M25.80 Other specified joint disorders, unspecified joint; M51.06 Intervertebral disc disorders with myelopathy, lumbar region; M25.78 Osteophyte, vertebrae; M47.816 Spondylosis without myelopathy or radiculopathy, lumbar region; M51.17 Intervertebral disc disorders with radiculopathy, lumbosacral region; M48.07 Spinal stenosis, lumbosacral region; G31.89 Other specified degenerative diseases of nervous system; M51.370 Other intervertebral disc degeneration, lumbosacral region with discogenic back pain only
CPT/HCPCS: 72148

== ENCOUNTER → 2025-09-07 10:50 | Outpatient (BNVA) | payer OTHER, SELFPAY | PROVIDERS: PCP Family Medicine; Visit Provider Physician Assistant | DX: M17.11 Unilateral primary osteoarthritis, right knee (principal) | CPT/HCPCS: 20610; 99213; J3301; J9999 ==

== ENCOUNTER 2025-10-01 10:42 | Inpatient (IN) | payer OTHER, SELFPAY ==
[2025-10-01] VITALS (8 sets, daily range): BP systolic 88–113; BP diastolic 33–70; PULSE 75–94; RESP 18; TEMP 36.4–37.1; O2SAT 95–100; BMI 23.9
--- OUTSIDE RECORDS SUMMARY | 2025-10-01 10:48 | XMS_ITS | Data Portability ---
Author Organization [facility] Kamilah Moore [facility] Address [address] [address] Care Team Providers Care Seed Analysis Laboratory Assistant Name Role Phone FARAZ BRGIHT Primary Care Provider Unavailabl e Assessment No assessment recorded. Plan of Treatment Reminders Order Date Submit Date Provider Last Modified By Organization Details Last Modified Time Details Appointments None record ed. Lab None record ed. Referral None record ed. Procedures None record ed. Surgeries None record ed. Imaging None record ed. Medication Orders None record ed. Patient TargetsNo targets recorded. Patient InstructionsNo instructions recorded. Reason for Referral None Reported. Results Created Date Observation Date Name Description Value Unit Range Abnormal Flag Note LastModifiedBy Organization Detail LastModifiedTime 08/25/2008/25/2025 XR, ankle , 3 or more view No observ ation record ed. [email or web address] [facility] Leonard Shah, [place], [address], 08/26/2025 09:13:25 Result Notes None recorded. Problems Name Problem SNOMED Code Status Onset Date Resolution Date Notes Provider Name and Address Organization Details Recorded Time Coronary atheroscl erosis 223214012 Active 2022 CORONARY ARTERY DISEASE; Impressio n: stable. D[facility]ITA salcedo [facility] 17:37:16 Myocardia l infarctio n 28221925 Active 2022 Myocardia l Infarctio n; Febuary 08 DANITA salcedo [facility] LJuliaLJuliaCJulia 5 17:37:16 Benign essential hypertens ion 2901912 Active 2022 DANITA MCKEON [facility] 5 17:37:16 Osteoarth ritis 087224347 Active 2022 DANITA MIKE [facility] 5 17:37:16 Hypothyro idism 39987191 Active 2022 DANITA MIKE [facility] 5 17:37:16 Chronic obstructi ve pulmonary disease 31541712 Active 2022 DANITA MCKEON [facility] 5 17:37:16 Pain of bilateral knee joints 729571956056 104 Active 2022 [facility] MIKE [facility] 5 17:37:16 Type 2 diabetes mellitus 82190387 Active 2022 DANITA MIKE [facility] 5 17:37:16 Atypical chest pain 571465353 Active 2022 DANITA MCKEON [facility] 5 17:37:16 Coronary arteriosc lerosis 00712424 Active 2022 DANITA MIKE [facility] 5 17:37:16 Hyperlipi demia 78711298 Active 2022 DANITA MCKEON [facility] 5 17:37:16 Major depressiv e disorder 514105027 Active 2024 DANITA MIKE [facility] 5 17:37:16 Osteoarth ritis of knee 633598688 Active 2024 DANITA MCKEON [facility] 17:37:16 Bilateral pain of joint of hands 728815469247 65149 Active 2024 Faraz Bright MD [address] [place] [address], [phone], [facility] 15:38:43 Low blood pressure 12505553 Active 2024 Faraz Bright MD [address] [place] [address], [address] [place] [address], [facility] 13:25:47 Unintenti onal weight loss 377016454 Active 2024 Faraz Bright MD [address] [place] [address], [address] [place] [address], [facility] 13:25:54 Bacterial urinary infection 874201333 Active 2024 Faraz Bright MD [address] [place] [address], [address], [facility] 08:41:30 Acute gastritis 59411634 Active 2024 Faraz Bright MD [address] [place] [address], [phone], [facility] 16:43:19 Orthostat ic hypotensi on 28348817 Active 2024 Faraz Bright MD [address] [place] [address], [address], [facility] 15:05:44 Primary gonarthro sis, bilateral 912759411 Active 2024 Faraz Bright MD [address] [place] [phone], [facility] 15:07:26 Pain of knee region 1792514079 Active 2024 Faraz Bright MD [address] [place], [address], [facility] 5 12:22:11 Closed fracture of fourth lumbar vertebra 455640523604 22944 Active 2024 NATAN salcedo [facility] 5 11:29:11 Low back pain 442691235 Active 2024 Faraz Bright MD [address] [place] [address], [phone], [facility] 5 09:02:05 Osteoarth ritis of right knee joint 165265988537 100 Active 2024 NATAN BABAR [facility] 5 11:55:08 Moderate dementia 505940993977 100 Active 2024 NATAN BABAR [facility], [facility] 5 11:55:52 Pressure injury of left heel stage II Active 2024 NATAN SAUDLOS [facility], [facility] 5 10:49:17 Problem Notes None recorded. Procedures Surgical History Date Name Laterality Status Provider Name and Address Organization Details Recorded Time 5 Joint Inj Beta-shoulder, hip, knee completed Faraz Bright MD [address] [place] [address], [phone], [facility] 06/10/2025 15:10:02 5 Joint Inj Beta-shoulder, hip, knee completed Faraz Bright MD [address] [place] [address], [phone], [facility] 12/15/2024 10:16:38 procedure on heart completed Sarah Larsen [facility] 06/08/2024 11:56:59 Imaging Results None recorded. Procedure Notes None recorded. Medical Equipment None Reported. Allergies Allergen ID Allergen Name Allergen Category Reaction Reaction Severity Criticality Documentation Date Start Date Code Code System Note Provider Name and Address Organization Details Recorded Time 19618 clindamyc in Not available rash moderate low 08/10/20232022 2582 RxNorm SHARAD BROUSSARD PA-C [address] [place] [address], [phone] , [facility] 3 17:17:40 Medications Name Sig Start Date Stop Date Status Note LastModified by Organization Details LastModified Time amoxicill in 500 mg capsule TAKE 1 CAPSULE BY MOUTH THREE TIMES A DAY TILL GONE 01/10 completed Not Available Not Available Not Available fluconazo le 100 mg tablet TAKE 1 TABLET BY MOUTH EVERY DAY FOR 14 DAYS 12/18 completed Not Available Not Available Not Available atorvasta tin 40 mg tablet TAKE 1 TABLET BY MOUTH EVERY DAY active Not Available Not Available No t Available doxycycli ne hyclate 100 mg capsule TAKE 1 CAPSULE BY MOUTH TWICE A DAY 01/10 completed Not Available Not Available Not Available paroxetin e 10 mg tablet TAKE 1 TABLET BY MOUTH EVERY DAY active Not Available Not Available No t Available clindamyc in HCl 300 mg capsule TAKE 1 CAPSULE BY MOUTH THREE TIMES A DAY FOR 7 DAYS 08/10 completed Not Available Not Available Not Available hydrocodo ne 5 mg-acetam inophen 325 mg tablet TAKE 1 TABLET BY MOUTH EVERY 6 HOURS NEEDED FOR 30 DAYS active Not Available Not Available No t Available prednison e 20 mg tablet TAKE 1 TABLET BY MOUTH EVERY DAY FOR 5 DAYS 08/17 completed Not Available Not Available Not Available acetamino phen 300 mg-codein e 15 mg tablet TAKE 1 TABLET BY MOUTH TWICE A DAY NEEDED FOR PAIN 04/28 completed Not Available Not Available Not Available sulfameth oxazole 800 mg-trimet hoprim 160 mg tablet TAKE 1 TABLET BY MOUTH TWICE A DAY 01/10 completed Not Available Not Available Not Available tramadol 50 mg tablet TAKE 1 TABLET BY MOUTH EVERY 4 HOURS NEEDED FOR PAIN 12/18 completed Not Available Not Available Not Available levothyro xine 25 mcg tablet TAKE 1 TABLET BY MOUTH EVERY DAY active Not Available Not Available No t Available betametha sone acetate and sodium phos 6 mg/mL suspensio n for injection Take 6 mg by injectio n route for 1 day. 08/05 completed Not Available Not Available Not Available famotidin e 20 mg tablet TAKE 1 TABLET BY MOUTH TWICE DAILY FOR STOMACH PAIN active Not Available Not Available No t Available triamcino lone acetonide 40 mg/mL suspensio n for injection Take 80 mg by injectio n route. 06/08 completed Not Available Not Available Not Available cephalexi n 500 mg capsule TAKE 1 CAPSULE BY MOUTH EVERY 6 HOURS 04/12 completed Not Available Not Available Not Available neomycin- polymyxin -dexameth 3.5 mg/mL-10, 000 unit/mL-0 .1% eye drops INSTILL 1 DROP INTO LEFT EYE TWICE A DAY 06/08 completed Not Available Not Available Not Available losartan 25 mg tablet TAKE 1 TABLET BY MOUTH EVERY DAY active Not Available Not Available No t Available nitroglyc iban 0.4 mg sublingua l tablet PLACE 1 TABLET BY SUBLINGU AL ROUTE NEEDED active Not Available Not Available No t Available diclofena c sodium 75 mg tablet,de layed release Take 1 tablet twice a day by oral route as needed for 30 days. 06/08 completed Not Available Not Available Not Available mupirocin 2 % topical ointment APPLY TO AFFECTED AREA 3 TIMES A DAY 06/08 completed Not Available Not Available Not Available diclofena c sodium 50 mg tablet,de layed release TAKE 1 TABLET BY MOUTH EVERY DAY FOR pain 2024 active Not Available Not Available Not Avai lable metoprolo l succinate ER 25 mg tablet,ex tended release 24 hr Take 0.5 tablets twice a day by oral route. 12/18 completed Not Available Not Available Not Available ondansetr on 4 mg disintegr ating tablet place ONE tablet ON TONGUE EVERY 8 HOURS NEEDED FOR NAUSEA AND VOMITING active Not Available Not Available No t Available amoxicill in 875 mg-potass ium clavulana te 125 mg tablet TAKE 1 TABLET BY MOUTH EVERY 12 HOURS FOR 7 DAYS 06/18 completed Not Available Not Available Not Available amoxicill in 500 mg-potass ium clavulana te 125 mg tablet TAKE 1 TABLET BY MOUTH TWICE A DAY 01/10 completed Not Available Not Available Not Available bupropion HCl SR 200 mg tablet,12 hr sustained -release Take 1 tablet twice a day by oral route. 10/04 completed Not Available Not Available Not Available metoprolo l tartrate 25 mg tablet take 1/2 tablet BY MOUTH TWICE DAILY active Not Available Not Available No t Available nitrofura ntoin monohydra te/macroc rystals 100 mg capsule Take 1 capsule every 12 hours by oral route for 7 days. 06/10 completed Not Available Not Available Not Available omeprazol e 05/25 completed Not Available Not Available Not Available venlafaxi ne daily 10/06 completed 9; Recorded 05/09/20 9:33AM by Antionette Ramirez LPN (Authori viridiana through Faraz Bright MD), Office Visit; Mail Order Quantity : 90 Capsule; Mail Order Days: 90 Days; Refill Quantity : 0; Not Available Not Available Not Available bupropion HCl BID 07/07 completed 0; Recorded 11/11/19 10:18AM by Danita Mckeon, Office Visit; Not Available Not Available Not Available [facility] Levothyro xine Sodium daily 07/07 completed RM/bn; Recorded 07/03/20 8:03AM by Faraz Bright MD, Refill Request; Mail Order Quantity : 90 Tablet; Mail Order Days: 90 Days; Refill Quantity : 90; Tablet; Not Available Not Available Not Available Laxative Natural at bedtime 07/07 completed 0; Recorded 11/11/19 10:18AM by Danita Mckeon, Office Visit; Not Available Not Available Not Available diclofena c 1 % topical gel APPLY 2 GRAMS TO THE AFFECTED AREA(S) BY TOPICAL ROUTE 2 TIMES PER DAY 2024 active Not Available Not Available Not Avai lable betametha sone sodium phos 6 mg/mL in sterile water injection solution Take 1 mL every day by injectio n route for 1 day. 10/06 completed Not Available Not Available Not Available losartan potassium (bulk) daily 07/07 completed RM/AV; 9; Recorded 07/02/20 11:41AM by Tiffanie corona (Nichole kemp through Faraz Bright MD), Refill Request; Mail Order Quantity : 90 Tablet; Mail Order Days: 90 Days; Refill Quantity : 90; Tablet; Not Available Not Available Not Available Klayesta 100,000 unit/gram topical powder APPLY TO AFFECTED AREA TWICE A DAY 06/08 completed Not Available Not Available Not Available Vitals Date Recorded Body height Body mass index (BMI) Body weight Oxygen saturation Heart rate Respiratory rate Body temperature Systolic And Diastolic Provider Name and Address Organization Details Last Updated DateTime 5 170.18 cm 29.3 kg/m2 76745.7 7 g 95 % 72 /min 20 /min 97.5 [degF] 118/68 mm[Hg] [facility] 5 11:23:53 Date Recorded Body height Body mass index (BMI) Body weight Body temperature Heart rate Respiratory rate Oxygen saturation Systolic And Diastolic Provider Name and Address Organization Details Last Updated DateTime 5 170.18 cm 27.9 kg/m2 85687.4 4 g 97.7 [degF] 80 /min 20 /min 90 % 110/60 mm[Hg] TIFFANIE BARKSDALE [facility] 5 11:21:49 Date Recorded Body height Body mass index (BMI) Body weight Oxygen saturation Heart rate Respiratory rate Body temperature Systolic And Diastolic Provider Name and Address Organization Details Last Updated DateTime 5 170.18 cm 28 kg/m2 80764.0 3 g 95 % 80 /min 20 /min 98.6 [degF] 128/76 mm[Hg] [facility] 5 11:53:10 Date Recorded Body height Body mass index (BMI) Body weight Oxygen saturation Heart rate Respiratory rate Body temperature Systolic And Diastolic Provider Name and Address Organization Details Last Updated DateTime 5 170.18 cm 26.9 kg/m2 25520.8 9 g 96 % 67 /min 18 /min 98.3 [degF] 128/76 mm[Hg] NATAN GÓMEZBABAR [facility] 5 10:46:41 Date Recorded Body height Body mass index (BMI) Body weight Body temperature Heart rate Respiratory rate Oxygen saturation Systolic And Diastolic Provider Name and Address Organization Details Last Updated DateTime 5 170.18 cm 26.6 kg/m2 48844.7 g 97.2 [degF] 60 /min 20 /min 90 % 108/60 mm[Hg] TIFFANIE BARKSDALE [facility] 5 11:35:34 Social History Question Answer Notes LastModified by [employer] Details LastModified Time Tobacco Smoking Status Never Smoker DANITA salcedo [facility] 01/10/2023 10:58:29 What Was The Date Of Your Most Recent Tobacco Screening? 08/12/2025 [email or web address] Information not available 08/12/2025 Sex: Unknown Functional Status Question Answer Note LastModified by [employer] Details LastModified Time Do you use any illicit or recreational drugs? No Information not available 01/10/2023 What is your level of alcohol consumption? None Information not available 01/10/2023 Mental Status None recorded. Family History Nothing Reported. Medical History No medical history recorded. Immunizations Vaccine Type Date Status Note Provider Nam e and Address Organization Details Recorded Time Influenza, split virus, trivalent, preservative 0 completed Not Available [facility] 05/17/2023 02:39:36 pneumococcal polysaccharide PPV23 0 completed Not Available [facility] 05/17/2023 02:39:36 Influenza, split virus, trivalent, preservative 9 completed Not Available [facility] 05/17/2023 02:39:36 Td(adult) unspecified formulation 5 completed DANITA salcedo [facility] 12/15/2024 09:23:28 Pneumococcal conjugate PCV 13 5 completed DANITA salcedo [facility] 12/15/2024 09:23:28 pneumococcal, unspecified formulation 5 completed DANITA salcedo [facility] 12/15/2024 09:23:28 Tdap 2 completed Not Available [facility] 09/28/2025 09:09:15 Past Encounters Encounter ID Performer Location Encounter Start Date Encounter Closed Date Diagnosis/Indication Diagnosis SNOMED-CT Code Diagnosis ICD10 Code Diagnosis IMO Codes Diagnosis Note [id number] Faraz Bright MD [facility] [address] [place] [id number] 5 01/10/2023 10:43:32 01/10/2023 12:40:39 Chronic obstructive pulmonary disease 45231690 J44.9 Benign ess ential hypertension 4717190 I10 Type 2 antonio betes mellitus 16990968 E11.9 Osteoarthritis 048923416 M19.90 Pain of bi lateral knee joints 6995430275 14625 M25.561 M25.562 Hypothyroidism 59611568 E03.9 Injection given 41609318 2 Z98.890 [id number] SOCORRO GARCIA [facility] ([facility]) [address] [place] [id number] 5 02/19/2023 09:29:19 03/03/2023 11:49:31 Chest wall pain 616489112 R07.89 [id number] Faraz Bright MD [facility] ([facility]) [address] [place] [address] [id number] 5 02/24/2023 09:35:05 02/24/2023 12:24:11 Atypical chest pain 910312818 R07.89 Coronary arteriosclerosis 66294359 I25.10 Hyperlipidemia 72114309 E78.5 Hypothyroidism 99890572 E03.9 Chronic ob structive pulmonary disease 23938374 J44.9 Osteoarthritis 482279414 M19.90 [id number] Faraz Bright MD [facility] ([facility]) [address] [place] [id number] 5 04/28/2023 09:58:05 04/28/2023 16:07:56 Atypical chest pain 380420331 R07.89 Benign ess ential hypertension 0030836 I10 Chronic ob structive pulmonary disease 79416283 J44.9 Osteoarthritis 909150095 M19.90 Pain of bi lateral knee joints 5285483339 47399 M25.561 M25.562 [id number] Faraz Bright MD [facility] ([facility]) [address] [place] [id number] 5 05/16/2023 10:42:10 05/16/2023 12:55:43 Essential hypertension 76982560 I10 Chronic ob structive pulmonary disease 41610614 J44.9 Hyperlipidemia 06954944 E78.5 Osteoarthritis 880080954 M19.90 [id number] Faraz Bright MD [facility] ([facility]) [address] [place] [id number] 5 07/07/2023 11:06:21 07/07/2023 12:59:22 Coronary arteriosclerosis 68197326 I25.10 followed by cardiology and may be getting an angiogram by cardiology in August. Benign ess ential hypertension 4797789 I10 Chronic ob structive pulmonary disease 72085323 J44.9 [id number] Faraz Bright MD [facility] ([facility]) [address] [place] [id number] 5 08/01/2023 10:47:27 08/01/2023 12:48:22 Chronic obstructive pulmonary disease 27146673 J44.9 Essential hypertension 48721422 I10 Type 2 antonio betes mellitus 59410995 E11.9 Foot callus 369002336 L8 4 with infection base of 5th toe. Pain of bi lateral knee joints 1389858209 21275 M25.561 M25.766 [id number] SHARAD BROUSSARD PA-C [facility] ([facility]) [address] [place] [id number] 5 2023 15:41:19 2023 17:32:11 Eruption caused by drug 00350543 L27.0 clindamyci n. put in allergy list and told him to no longer take.His foot looks good. callous over the 5th metatarsal head but no abcess or cellulitis . Pruritic rash 96136120 L 28.2 [id number] Dom Cheng MD [facility] ([facility]) [address] [place] [address] [id number] 5 09/19/2023 12:22:06 09/22/2023 11:40:45 Subconjunctival hemorrhage of right eye 5615360932 18388 H11.31 Subconjunc tival hemorrhage noted on the right eye pain. Patient has no eye pain or vision changes. Patient reassured. [id number] Faraz Bright MD [facility] ([facility]) [address] [place] [address] [id number] 5 10/06/2023 11:24:17 10/06/2023 12:21:43 Benign essential hypertension 6226917 I10 Chronic ob structive pulmonary disease 86077240 J44.9 Osteoarthritis 562646957 M19.90 Type 2 antonio betes mellitus 72197210 E11.9 Pain in right foot 74166 50696 46163 M79.671 suspect that this is from his arthritis. He may benefit from podiatry evaluation and insoles possibly. [id number] SUDHIR CABRERA [facility] ([facility]) [address] [place] [id number] 11/25/2023 16:25:57 11/25/2023 19:37:12 Candidiasis of skin 82975075 B37.2 Continue fluconazol e as prescribed . Will start nystatin powder today. Encouraged to follow up with PCP next week for re-evaluat ion. Patient is agreeable to plan of care. [id number] SUDHIR CABRERA [facility] ([facility]) [address] [place] [id number] 5 12/15/2023 11:17:20 12/15/2023 13:01:07 Accidental fall 344087200 W19.XXXA Injury of right rotator cuff 7206320436 4713700 S46.001A X-ray today shows moderate arthritis but no new fractures. Will refer patient to ortho as I suspect a rotator cuff tear. Can use tylenol and heat PRN for pain. Should use arm as tolerated but discussed not overdoing it. Patient is agreeable to plan of care. [id number] Faraz Bright MD [facility] ([facility]) [address] [place] [id number] 12/19/2023 10:47:36 12/19/2023 11:44:02 Pain of right shoulder joint 5381539209 2170696 M25.511 Benign ess ential hypertension 2195998 I10 Hyperlipidemia 70071397 E78.5 Hypothyroidism 68180255 E03.9 [id number] Faraz Bright MD [facility] ([facility]) [address] [place] [id number] 5 02/06/2024 15:59:33 02/06/2024 17:29:23 Pain of right shoulder joint 4112825391 4846464 M25.511 MRI demonstate s severe chronic rotator cuff tear and osteoarthr itis. Followed by orthopedic surgery. Benign ess ential hypertension 6049803 I10 stable at present. Chronic ob structive pulmonary disease 60620176 J44.9 Pain of bi lateral knee joints 6177529721 58812 M25.561 M25.196 [id number] Dom Cheng MD [facility] ([facility]) [address] [place] [address] [id number] 5 02/26/2024 16:58:31 02/26/2024 17:51:46 Local infection of wound 47973282 T14.90XA Skin tear appears to be secondaril y infected. Start antibiotic s. Recommend follow-up with PCP next week for wound check. Accidental fall 79892871 2 W19.XXXA Skin tear and a few abrasions noted. No other significan t injury. [id number] Faraz Bright MD [facility] ([facility]) [address] [place] [id number] 5 03/01/2024 14:53:12 03/01/2024 15:53:25 Benign essential hypertension 8018108 I10 having some orthostasi s. Will hold the Metropolol . Local infe ction of wound 41178149 T14.90XA improving. He will continue his Cephalexin till gone. Myocardial infarction 22 505175 I21.9 Type 2 antonio betes mellitus 47358848 E11.9 Hyperlipidemia 32676386 E78.5 [id number] Faraz Bright MD [facility] ([facility]) [address] [place] [address] [id number] 5 04/12/2024 13:43:59 04/12/2024 14:19:56 Plantar wart of right foot 0189502062 2122988 B07.0 [id number] SOCORRO VEGAS [facility] ([facility]) [address] [place] [address] [id number] 5 06/08/2024 11:51:31 06/08/2024 12:48:05 Cough 20438500 R05.9 Acute bact erial bronchitis 145533228 J20.9 Discussed use of antibiotic . Take with food.May use Albaro's nasal inserts and also apply on chest. Push oral fluids. Consider nasal saline rinses and otc decongesta nt.Use tylenol/mo armand for gómez. [id number] SOCORRO VEGAS [facility] ([facility]) [address] [place] [address] [id number] 5 06/18/2024 13:52:40 06/22/2024 08:18:36 Wasp sting 338887659 T63.461A Discussed to take a zyrtec/cla ritin in the a.m., benadryl at night. Elevate the arm. Apply a cool compress for 10 minutes every 1-2 hours while awake. May use otc anti itch topicals. Take ibuprofen twice a day. Return if you develop increased swelling, red streaks, numbness, or symptoms worsen. [id number] Faraz Bright MD [facility] ([facility]) [address] [place] [address] [id number] 5 07/20/2024 14:18:04 07/26/2024 08:39:06 Pain of bilateral knee joints 0628044615 16698 M25.561 M25.562 Osteoarthritis 546934883 M19.90 Pain of ri ght knee joint 8881695836 11597 M25.561 he declined injection of the left knee. Benign ess ential hypertension 2752793 I10 having some orthostasi s. Will hold the Metropolol . Chronic ob structive pulmonary disease [id number] J44.9 [id number] Faraz Bright MD [facility] ([facility]) [address] [place] [address] [phone] 5 08/17/2024 15:47:28 08/17/2024 17:01:14 Osteoarthritis 658290322 M19.90 stable. Benign ess ential hypertension 9108926 I10 BP running good at this time. Chronic ob structive pulmonary disease 73815932 J44.9 stable. [id number] Faraz Bright MD [facility] ([facility]) [address] [place] [address] [phone] 5 11/03/2024 14:23:24 11/04/2024 17:27:06 Hypothyroidism 51458495 E03.9 Benign ess ential hypertension 3306315 I10 BP running good at this time. Coronary atherosclerosis 238816202 I25.10 Type 2 antonio betes mellitus 77246899 E11.9 Major depr essive disorder 293388727 F32.9 Osteoarthritis 824618721 M19.90 stable. [id number] Faraz Bright MD [facility] ([facility]) [address] [place] [address] [id number] 5 12/15/2024 09:21:47 12/20/2024 09:13:58 Pain of bilateral knee joints 8224214334 97649 M25.561 M25.947 [id number] Faraz Bright MD [facility] ([facility]) [address] [place] [address] [phone] 5 01/12/2025 15:16:29 01/14/2025 07:04:48 Pain of bilateral knee joints 2695354427 08441 M25.561 M25.562 continuing problem. Yoana use his Osteoarthr itis of knee 984716834 M17.9 right knee worse than the left. [id number] Faraz Bright MD [facility] ([facility]) [address] [place] [address] [phone] 5 03/07/2025 14:28:15 03/09/2025 15:47:12 Osteoarthritis of knee 948922222 M17.9 right knee worse than the left. Bilateral pain of joint of hands 6288707140 9555408 M25.541 M25.542 4990124480 Disorder of hand 9569694 04 M24.549 [id number] bilateral [id number] Faraz Bright MD [facility] ([facility]) [address] [place] [address] [phone] 5 05/23/2025 13:02:30 05/23/2025 13:54:28 Abdominal pain 61483899 R10.9 Low blood pressure 92075 003 R03.1 186995 BP low and pulse low. Will hold his Metoprolol for now. Unintentio nal weight loss 426273799 R63.4 212009 I worry about his diet and eating. I recommend adding carnation instant breakfast daily to bid. [id number] SOCORRO JOSEPH [facility] ([facility]) [address] [place] [address] [phone] 5 05/25/2025 18:01:07 05/31/2025 13:25:46 Nausea 026941762 R11.0 11347 Will give zofran for nausea. Advised to use sparingly. Discussed need to continue Miralax to keep the bowels moving. Discussed if continued n/v we may be concerned for obstructio n, and patient verbalizes understand ing of returning to clinic for evaluation or going to ER for evaluation . [id number] Faraz Bright MD [facility] ([facility]) [address] [place] [address] [id number] 5 05/31/2025 15:33:22 06/01/2025 09:04:11 Abdominal pain 63316688 R10.9 Acute gastritis 12268792 K29.00 70076285 Benign ess ential hypertension 6747264 I10 BP running good at this time. Coronary atherosclerosis 763706913 I25.10 Type 2 antonio betes mellitus 52771082 E11.9 [id number] Faraz Bright MD [facility] ([facility]) [address] [place] [address] [phone] 5 06/10/2025 14:26:02 06/10/2025 15:21:14 Hypothyroidism 81175025 E03.9 Orthostati c hypotension 06902214 I95.1 3436 increase fluid intake. Primary go narthrosis, bilateral 714550186 M17.0 2292690 right knee worse than the left. [id number] Faraz Bright MD [facility] ([facility]) [address] [place] [address] [phone] 5 08/05/2025 10:35:44 08/05/2025 12:37:33 Bilateral pain of joint of hands 6034951424 1899320 M25.541 M25.542 3017938496 continue present meds. Pain of knee region 1003 534687 M25.561 M25.562 G89.29 [id number] He is having increased pain in knees. Will refer back to orthopedic s for further evaluation . [id number] SOCORRO JOSEPH [facility] ([facility]) [address] [place] [address] [id number] 5 08/12/2025 13:28:28 08/12/2025 14:27:52 Recurrent falls 586829125 R29.6 [id number] Will send to ER for further evaluation and treatment. Report called to ER staff. [id number] SHARAD BROUSSARD PA-C [facility] ([facility]) [address] [place] [address] [phone] 5 08/24/2025 11:11:06 09/21/2025 07:27:03 Closed fracture of fourth lumbar vertebra 8258914762 2397027 S32.049S [id number] has a referal in to see Dr. Oleary to see if he is a candidate for kyphoplast y. Post-disch arge follow-up 546802276 Z51.89 115254 imaging, notes and meds reviewed. Primary go narthrosis, bilateral 606700933 M17.0 [id number] get new xray right knee , tibia and ankle to confirm if fx or not Dementia 65881294 F03.C0 7760492696 [id number] Faraz Bright MD [facility] ([facility]) [address] [place] [address] [phone] 5 08/31/2025 09:00:46 08/31/2025 11:48:41 Need for personal care assistance [id number] 8324765 Z74.1 [id number] Lives in prison 16 9962720 Z78.9 [id number] Benign ess ential hypertension 0919685 I10 BP running good at this time. Coronary atherosclerosis 455887470 I25.10 Type 2 antonio betes mellitus 04134522 E11.9 Bilateral pain of joint of hands 9105445478 5223220 M25.541 M25.542 2754938841 continue present meds and OT as directed. Osteoarthr itis of knee 112653211 M17.9 right knee worse than the left. FOllowed by orthopedic s. Low back pain 837382275 M54.50 [id number] followed by orthopedic s. MRI pending. [id number] SHARAD BROUSSARD PA-C [facility] ([facility]) [address] [place] [address] [phone] 5 09/07/2025 11:52:31 09/28/2025 10:03:49 Osteoarthritis of right knee joint 3686374180 17929 M17.11 [id number] sees ortho today nno Moderate dementia 513358 0739 00422 F03.B0 1670700376 Benign ess ential hypertension 0336380 I10 vitals reviewed and BP have been at goal. compliant with meds. [id number] Faraz Bright MD [facility] ([facility]) [address] [place] [address] [phone] 5 09/28/2025 09:09:05 09/28/2025 14:00:25 Need for personal care assistance [id number] 3532127 Z74.1 0754600 Lives in prison 16 4181620 Z78.9 9322861 Benign ess ential hypertension 2119186 I10 BP running good at this time. Coronary arteriosclerosis 14154284 I25.10 Type 2 antonio betes mellitus 03639060 E11.9 Moderate dementia 017958 5767 08749 F03.B0 3223371591 Worsening memory loss and confusion. Chronic ob structive pulmonary disease 93653692 J44.9 stable. Health Concerns Section Related Observation LastModified by Organization Detai ls LastModified Time None Recorded Concern Status LastModified by Organization Details LastModified Time None Recorded Advance Directives Directive None Recorded Payers Insurance Date Sequence Insurance Name Policy Number Policy Gamble Covered Member ID Gamble Member ID Guarantor Name 09/27/2025 1 [place] (MEDICARE REPLACEMENT HMO) [id number] Kenneth Li [id number] Kenneth Li Notes Date Note Type Note Provider Name and Address Organization Details Recorded Time 08/24/20 25 text/htm l Back PainReported by PatientHPIFor severity, patient reportsinterferes with sleepandinterferes with work. For location, patient reportslumbar right. For quality, patient reportssharp,tingling,dull,s tiffness,throbbing, andpressure. For duration, patient ceflsmh22 days. For timing, patient reportsacute. For context, patient reportstraumaandfall. new admit to [facility] with advanced dementia had multiple falls at home and was taken to ER.Confirmed new L4 fx but there was some mixed documentation on a possible tibia fx. I read xray reports but no mention of tibia fx just a old fibular fx. but he is non wt bearing here due to it. SHARAD BROUSSARD PA-C [address] [place] [address], [phone], [facility] 09/20/2025 17:17:38 08/31/20 25 text/htm l patient complains of pain in hands and right knee. Nothing new. He is not eating well by report. Faraz Bright MD [address] [place] [address], [phone], [facility] 08/31/2025 11:27:13 09/07/20 25 text/htm l DementiaReported by PatientHPIFor associated symptoms, patient reportsdepressionandgait impairment. For quality, patient reportsinability to reason,difficulty with coordination, anddisorientation to person. For severity, patient reportsmoderate. For duration, patient reports6 months. For onset/timing, patient reportsinsidious. For context, patient reportsno alcohol use. Pt pleasently confusing. Does not walk much or improvement with PT. Fx has been ruled out but still with significant OA in the knees. Seeing ortho today to see if any injection tx for pain. Faraz Bright MD [address] [place] [address], [phone], [facility] 09/27/2025 17:37:49 09/21/20 25 text/htm l Skin LesionReported by PatientHPIFor location, patient reportsfoot. For quality, patient reportspainful,tender, andsore. For severity, patient reportsmoderate. For duration, patient reports4 weeks. For timing, patient reportsgradualandconstant. Not Available Not Available Not Available 09/28/20 25 text/htm l Dementia is progressive. He has no complaints I don't remember anything . Faraz Bright MD [address] [place] [address], [phone], [facility] [place] 09/28/2025 13:59:14
--- OUTSIDE RECORDS SUMMARY | 2025-10-01 10:48 | XMS_ITS | Clinical Summary ---
Author Organization [facility] Address [address] [place] [address] Care Team Providers Care Assembly Machine Tool Setter Name Role Phone Satya Bright MD Primary Care Provider [phone] Allergies No known active allergies Medications losartan (COZAAR) 50 mg tablet Take 25 mg by mouth daily. 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 Active metoprolol tartrate (LOPRESSOR) 25 mg tablet [...] 02/15/2014 Overview (03/19/2016): status post CABG Old MA (myocardial infarction) 02/15/2014 HTN (hypertension), benign 02/15/2014 Dyslipidemia 02/15/2014 Hypothyroid 02/15/2014 Arthritis 02/15/2014 Depression 02/15/2014 Social History Tobacco Use Types Packs/Day Years Used Date Smoking Tobacco: Former Cigarettes 0 Q uit: 02/15/2007 Tobacco Cessation:Counseling Given: No Alcohol Use Standard Drinks/Week Comments Not Asked 0 (1 standard drink = 0.6 oz pur e alcohol) Sex and Gender Information Value Date Recorded Sex Assigned at Not on file 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
--- OUTSIDE RECORDS SUMMARY | 2025-10-01 10:48 | XMS_ITS | Clinical Summary ---
Author Organization [facility] Address [address] [place]oy: Epic [place] [address] Care Team Providers Care Foreign Banknote Teller Name Role Phone Satya Bright MD Primary Care Provider [phone] Allergies No known active allergies Medications venlafaxine (EFFEXOR) 75 mg tablet TAKE 3 CAPSULES BY MOUTH ONCE A DAY FOR MOOD WITH FOOD. DO NOT ABRUPTLY DISCONTINUE MEDICATION. 0 Active atorvastatin (LIPITOR) 40 mg tablet Take 40 mg by mouth late in the day. 8 Active buPROPion HCL (WELLBUTRIN XL) 300 mg Extended Release 24 hour tablet Take 300 mg by mouth daily. 0 Active Active Problems Problem Noted Date Diagnosed Date Palpitations 07/16/2018 S/P CABG (coronary artery bypass graft) 03/07/20 15 Old PR (myocardial infarction) 02/15/2014 HTN (hypertension), benign 02/15/2014 ASHD (arteriosclerotic heart disease) 02/15/2014 Overview (02/15/2021): status post CABG Hypothyroid 02/15/2014 Depression 02/15/2014 Dyslipidemia 02/15/2014 Arthritis 02/15/2014 Encounters Date Type Department Care Team Description 08/24/2025 External Device Data [facility] ABSTRACTION Provider, Abstract 08/17/2025 Telephone [facility] [address] [place] [address] Mic Slaughter MD General from Last 3 Months Social History Tobacco Use Types Packs/Day Years Used Date Smoking Tobacco: Former Cigarettes 0 Q uit: 02/15/2007 Alcohol Use Standard Drinks/Week Comments Not Asked 0 (1 standard drink = 0.6 oz pur e alcohol) Sex and Gender Information Value Date Recorded Sex Assigned at Not on file 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
--- OUTSIDE RECORDS SUMMARY | 2025-10-01 10:48 | XMS_ITS | Continuity of Care Document ---
Author Organization [facility] Oscar, LEric, [facility] ([facility]) Address [address] [place] [address] Care Team Providers Care Mincemeat Maker Name Role Phone FARAZ BRIGHT Primary Care Provider Unavailabl e Assessment No [...] more view No observ ation record ed. [email or web address] [facility] Leonard Shah, [place], [address], 08/26/2025 09:13:25 Result Notes None recorded. Problems Name Problem SNOMED Code Status Onset Date Resolution Date Notes Provider Name and Address Organization Details Recorded Time Coronary atheroscl erosis 537053944 Active 2022 CORONARY ARTERY DISEASE; Impressio n: stable. DANITA salcedo [facility] 17:37:16 Myocardia l infarctio n 49900861 Active 2022 Myocardia l Infarctio n; Febuary 08 DANITA salcedo [facility] 17:37:16 Benign essential hypertens ion 7204469 Active 2022 DANITA BILLS [facility] 5 17:37:16 Osteoarth ritis 837845509 Active 2022 DANITA BILLS [facility] 5 17:37:16 Hypothyro idism 87454527 Active 2022 DANITA BILLS [facility] 5 17:37:16 Chronic obstructi ve pulmonary disease 85511932 Active 2022 DANITAGlenn BILLS [facility] 5 17:37:16 Pain of bilateral knee joints 501495629167 104 Active 2022 DANITA MIKE [facility] 5 17:37:16 Type 2 diabetes mellitus 37456280 Active 2022 DANITA BILLS [facility] 5 17:37:16 Atypical chest pain 205439970 Active 2022 DANITA BILLS [facility] 5 17:37:16 Coronary arteriosc lerosis 94147057 Active 2022 DANITA BILLS [facility] 5 17:37:16 Hyperlipi demia 82364176 Active 2022 DANITA BILLS [facility] 5 17:37:16 Major depressiv e disorder 389197024 Active 2024 DANITA BILLS [facility] 5 17:37:16 Osteoarth ritis of knee 011607588 Active 2024 DANITA BILLS [facility] 17:37:16 Bilateral pain of joint of hands 602601578392 90787 Active 2024 Faraz Bright MD [address] [place] [address], [address], [facility] 15:38:43 Low blood pressure 67698386 Active 2024 Faraz Bright MD [address] [place] [address], [phone] 5, [facility] 13:25:47 Unintenti onal weight loss 135879132 Active 2024 Faraz Bright MD [address] [place] [address], [address], [facility] 13:25:54 Bacterial urinary infection 480542857 Active 2024 Faraz Bright MD [address] [place] [address], [address] 5, [facility] 08:41:30 Acute gastritis 74851448 Active 2024 Faraz Bright MD [address] [place] [address], [address], [facility] 16:43:19 Orthostat ic hypotensi on 60210445 Active 2024 Faraz Bright MD [address] [place] [address], [address], [facility] 15:05:44 Primary gonarthro sis, bilateral 315755064 Active 2024 Faraz Bright MD [address] [place] [phone] , [facility] 15:07:26 Pain of knee region 9480633791 Active 2024 Faraz Bright MD [address] [place], [address], [facility] 5 12:22:11 Closed fracture of fourth lumbar vertebra 250734687662 16389 Active 2024 NATAN MCKAY [facility] 5 11:29:11 Low back pain 997450847 Active 2024 Faraz Bright MD [address] [place], [address], [facility] 5 09:02:05 Osteoarth ritis of right knee joint 141575551186 100 Active 2024 NATAN SAUDLOS [facility] 5 11:55:08 Moderate dementia 559148708126 100 Active 2024 NATAN HASAUDLOS [facility] 5 11:55:52 Pressure injury of left heel stage II Active 2024 NAATN SAUDLOS [facility], [facility] 5 10:49:17 Problem Notes None recorded. Procedures Surgical History Date Name Laterality Status Provider Name and Address Organization Details Recorded Time 5 Joint Inj Beta-shoulder, hip, knee completed Faraz Bright MD [address] [place], [address], [facility] 06/10/2025 15:10:02 5 Joint Inj Beta-shoulder, hip, knee completed Faraz Bright MD [address] [place] [address], [address], [facility] 12/15/2024 10:16:38 procedure on heart completed Sarah Larsen [facility] 06/08/2024 11:56:59 Imaging Results None recorded. Procedure Notes None recorded. Medical Equipment None Reported. Allergies Allergen ID Allergen Name Allergen Category Reaction Reaction Severity Criticality Documentation Date Start Date Code Code System Note Provider Name and Address Organization Details Recorded Time 31067 clindamyc in Not available rash moderate low 08/10/20232022 2582 RxNorm SHARAD BROUSSARD PA-C [address] [place] [address], [phone] , [facility] 17:17:40 Medications Name Sig Start Date [...] completed 0; Recorded 11/11/19 10:18AM by Danita Bills, Office Visit; Not Available Not Available Not Available [facility] Levothyro xine Sodium daily 07/07 completed RM/bn; Recorded 07/03/20 8:03AM by Faraz Bright MD, Refill Request; Mail Order Quantity : 90 Tablet; Mail Order Days: 90 Days; Refill Quantity : 90; Tablet; Not Available Not Available Not Available Laxative Natural at bedtime 07/07 completed 0; Recorded 11/11/19 10:18AM by Danita Bills, Office Visit; Not Available Not Available Not [...] 9; Recorded 07/02/20 11:41AM by Tiffanie corona (i viridiana through Faraz Bright MD), Refill Request; Mail [...] Updated DateTime 5 170.18 cm 28 kg/m2 19968.0 3 g 95 % 80 /min 20 /min 98.6 [degF] 128/76 mm[Hg] [facility] 5 11:53:10 Date Recorded Body height Body mass index (BMI) Body weight Oxygen saturation Heart rate Respiratory rate Body temperature Systolic And Diastolic Provider Name and Address Organization Details Last Updated DateTime 5 170.18 cm 26.9 kg/m2 38059.8 9 g 96 % 67 /min 18 /min 98.3 [degF] 128/76 mm[Hg] [facility] 5 10:46:41 Social History Question Answer Notes LastModified by [email or web address] Details LastModified Time Tobacco Smoking Status Never [facility] 01/10/2023 10:58:29 What Was The Date Of Your Most Recent Tobacco Screening? 08/12/2025 [email or web address] Information not available 08/12/2025 Sex: Unknown Functional Status Question Answer Note LastModified by [email or web address] Details LastModified Time Do you use any illicit or recreational drugs? No [email or web address] Information not available 01/10/2023 What is your level of alcohol consumption? None [email or web address] Information not available 01/10/2023 Mental Status None recorded. Family History Nothing Reported. Medical History No medical history recorded. Immunizations Vaccine Type Date Status Note Provider Nam e and Address Organization Details Recorded Time Influenza, split virus, trivalent, preservative 0 completed Not Available [facility] 05/17/2023 02:39:36 pneumococcal polysaccharide PPV23 0 completed Not Available [facility] 05/17/2023 02:39:36 Influenza, split virus, trivalent, preservative 9 completed Not Available [facility] 05/17/2023 02:39:36 Td(adult) unspecified formulation 5 completed DANITA salcedo [facility] 12/15/2024 09:23:28 Pneumococcal conjugate PCV 13 5 completed DANITA FORDRIS denisse [facility] 12/15/2024 09:23:28 pneumococcal, unspecified formulation 5 completed DANITA salcedo [facility] 12/15/2024 09:23:28 Tdap 2 completed Not Available [facility] 09/28/2025 09:09:15 Past Encounters Encounter ID Performer Location Encounter Start Date Encounter Closed Date Diagnosis/Indication Diagnosis SNOMED-CT Code Diagnosis ICD10 Code Diagnosis IMO Codes Diagnosis Note [id number] SOCORRO JOSEPH [facility] ([facility]) [address] [place] [address] 08/12/2025 13:28:28 08/12/2025 14:27:52 Recurrent falls 631602841 R29.6 [id number] Will send to ER for further evaluation and treatment. Report called to ER staff. [id number] SHARAD BROUSSARD PA-C [facility] ([facility]) [address] [place] [address] 08/24/2025 11:11:06 09/21/2025 07:27:03 Closed fracture of fourth lumbar vertebra 0073780904 4072514 S32.049S [id number] has a referal in to see Dr. Oleary to see if he is a candidate for kyphoplast y. Post-disch arge follow-up 044675563 Z51.89 [id number] imaging, notes and meds reviewed. Primary go narthrosis, bilateral 388218022 M17.0 8147091 get new xray right knee , tibia and ankle to confirm if fx or not Dementia 95803841 F03.C0 [id number] Faraz Bright MD [facility] ([facility]) [address] [place] [address] 5 08/31/2025 09:00:46 08/31/2025 11:48:41 Need for personal care assistance [id number] 8121765 Z74.1 [id number] [facility] in [facility] 16 4257129 Z78.9 [id number] Benign ess ential hypertension 7146688 I10 BP running good at this time. Coronary atherosclerosis 684104332 I25.10 Type 2 antonio betes mellitus 07508078 E11.9 Bilateral pain of joint of hands 8330532924 5483771 M25.541 M25.542 [id number] continue present meds and OT as directed. Osteoarthr itis of knee 761323527 M17.9 right knee worse than the left. FOllowed by orthopedic s. Low back pain 287626280 M54.50 [id number] followed by orthopedic s. MRI pending. [id number] SHARAD BROUSSARD PA-C [facility] ([facility]) [address] [place] [address] 5 09/07/2025 11:52:31 09/28/2025 10:03:49 Osteoarthritis of right knee joint 0029595309 67825 M17.11 [id number] sees ortho today nno Moderate dementia 214858 3980 40442 F03.B0 0547279060 Benign ess ential hypertension 2074468 I10 vitals reviewed and BP have been at goal. compliant with meds. Health Concerns Section Related Observation LastModified by Organization Detai ls LastModified Time None Recorded Concern Status LastModified by Organization Details LastModified Time None Recorded Payers Encounter Date Sequence Insurance Name Policy Number Policy Gamble Covered Member ID Gamble Member ID Guarantor Name 09/07/2025 1 [place] (MEDICARE REPLACEMENT HMO) [id number] Kenneth Li [id number] Kenneth Li Notes Date Note Type Note Provider Name and Address Organization Details Recorded Time 09/07/20 25 text/htm l DementiaReported by PatientHPIFor [...] injection tx for pain. Faraz Bright MD [address] [place] [address], [phone], [facility] 09/27/2025 17:37:49 09/21/20 25 text/htm l Skin LesionReported by PatientHPIFor location, patient reportsfoot. For quality, patient reportspainful,tender, andsore. For severity, patient reportsmoderate. For duration, patient reports4 weeks. For timing, patient reportsgradualandconstant. Not Available Not Available Not Available
--- OUTSIDE RECORDS SUMMARY | 2025-10-01 10:48 | XMS_ITS | Continuity of Care Document ---
Author Organization [facility] Oscar, LEric, [facility] ([facility]) Address [address] [place] [address] Care Team Providers Care Yard Specialist Name Role Phone FARAZ BRIGHT Primary Care [...] more view No observ ation record ed. [email or web address] [facility] Leonard Shah, [place], [address], 08/26/2025 09:13:25 Result Notes None recorded. Problems Name Problem SNOMED Code Status Onset Date Resolution Date Notes Provider Name and Address Organization Details Recorded Time Coronary atheroscl erosis 717463698 Active 2022 CORONARY ARTERY DISEASE; Impressio n: stable. DANITA salcedo [facility] 17:37:16 Myocardia l infarctio n 22730705 Active 2022 Myocardia l Infarctio n; Febuary 08 DANITA salcedo [facility] 17:37:16 Benign essential hypertens ion 1364762 Active 2022 DANITA BILLS [facility] 5 17:37:16 Osteoarth ritis 249563969 Active 2022 DANITA BILLS [facility] 5 17:37:16 Hypothyro idism 73732149 Active 2022 DANITA BILLS [facility] 5 17:37:16 Chronic obstructi ve pulmonary disease 76414547 Active 2022 DANITAGlenn BILLS [facility] 5 17:37:16 Pain of bilateral knee joints 835320191982 104 Active 2022 DANITA MIKE [facility] 5 17:37:16 Type 2 diabetes mellitus 57980628 Active 2022 DANITA BILLS [facility] 5 17:37:16 Atypical chest pain 880212186 Active 2022 DANITA BILLS [facility] 5 17:37:16 Coronary arteriosc lerosis 61764364 Active 2022 DANITA BILLS [facility] 5 17:37:16 Hyperlipi demia 00067221 Active 2022 DANITA BILLS [facility] 5 17:37:16 Major depressiv e disorder 317337381 Active 2024 DANITA BILLS [facility] 5 17:37:16 Osteoarth ritis of knee 733660881 Active 2024 DANITA BILLS [facility] 17:37:16 Bilateral pain of joint of hands 883124240476 45526 Active 2024 Faraz Bright MD [address] [place] [address], [address], [facility] 15:38:43 Low blood pressure 41414372 Active 2024 Faraz Bright MD [address] [place] [address], [address] 5, [facility] 13:25:47 Unintenti onal weight loss 055289847 Active 2024 Faraz Bright MD [address] [place] [address], [address], [facility] 13:25:54 Bacterial urinary infection 682753071 Active 2024 Faraz Bright MD [address] [place] [address], [address] 5, [facility] 08:41:30 Acute gastritis 33657975 Active 2024 Faraz Bright MD [address] [place] [address], [address]59[address] 5, [facility] 16:43:19 Orthostat ic hypotensi on 38274931 Active 2024 Faraz Bright MD [address] [place] [address], [address] 5, [facility] 15:05:44 Primary gonarthro sis, bilateral 801755708 Active 2024 Faraz Bright MD [address] [place] [address] , [facility] 15:07:26 Pain of knee region 0127207489 Active 2024 Faraz Bright MD [address] [place], [address], [facility] 5 12:22:11 Closed fracture of fourth lumbar vertebra 198778992832 05431 Active 2024 NATAN MCKAY [facility] 5 11:29:11 Low back pain 000188754 Active 2024 Faraz Bright MD [address] [place], [address], [facility] 5 09:02:05 Osteoarth ritis of right knee joint 580743715703 100 Active 2024 NATAN SAUDLOS [facility] 5 11:55:08 Moderate dementia 542131956771 100 Active 2024 NATAN HASAUDLOS [facility] 5 11:55:52 Pressure injury of left heel stage II Active 2024 NATAN SAUDLOS [facility], [facility] 5 10:49:17 Problem Notes None recorded. Procedures Surgical History Date Name Laterality Status Provider Name and Address Organization Details Recorded Time 5 Joint Inj Beta-shoulder, hip, knee completed Faraz Bright MD [address] [place], [address], [facility] 06/10/2025 15:10:02 5 Joint Inj Beta-shoulder, hip, knee completed Faraz Bright MD [address] [place] [address], [address], [facility] 12/15/2024 10:16:38 procedure on heart completed Sarah Larsen [facility] 06/08/2024 11:56:59 Imaging Results None recorded. Procedure Notes None recorded. Medical Equipment None Reported. Allergies Allergen ID Allergen Name Allergen Category Reaction Reaction Severity Criticality Documentation Date Start Date Code Code System Note Provider Name and Address Organization Details Recorded Time 39954 clindamyc in Not available rash moderate low 08/10/20232022 2582 RxNorm SHARAD BROUSSARD PA-C [address] [place] [address], [address] , [facility] 17:17:40 Medications Name Sig Start [...] Updated DateTime 5 170.18 cm 29.3 kg/m2 68263.7 7 g 95 % 72 /min 20 /min 97.5 [degF] 118/68 mm[Hg] [facility] 11:23:53 Date Recorded Body height Body mass index (BMI) Body weight Body temperature Heart rate Respiratory rate Oxygen saturation Systolic And Diastolic Provider Name and Address Organization Details Last Updated DateTime 5 170.18 cm 27.9 kg/m2 85041.4 4 g 97.7 [degF] 80 /min 20 /min 90 % 110/60 mm[Hg] TIFFANIE BARKSDALE [facility] 5 11:21:49 Date Recorded Body height Body mass index (BMI) Body weight Oxygen saturation Heart rate Respiratory rate Body temperature Systolic And Diastolic Provider Name and Address Organization Details Last Updated DateTime 5 170.18 cm 28 kg/m2 55142.0 3 g 95 % 80 /min 20 /min 98.6 [degF] 128/76 mm[Hg] [facility] 5 11:53:10 Social History Question Answer Notes LastModified by Organizat ion Details LastModified Time Tobacco Smoking Status Never Smoker DANITA salcedo [facility] 01/10/2023 10:58:29 What Was The Date Of Your Most Recent Tobacco Screening? 08/12/2025 [email or web address] Information not available 08/12/2025 Sex: Unknown Functional Status Question Answer Note LastModified by Organizat ion Details LastModified Time Do you use any illicit or recreational drugs? No [email or web address] Information not available 01/10/2023 What is your level of alcohol consumption? None [email or web address] Information not available 01/10/2023 Mental Status None recorded. Family History Nothing Reported. Medical History No medical history recorded. Immunizations Vaccine Type Date Status Note Provider Nam e and Address Organization Details Recorded Time Influenza, split virus, trivalent, preservative 0 completed Not Available [facility] 05/17/2023 02:39:36 pneumococcal polysaccharide PPV23 0 completed Not Available [facility] 05/17/2023 02:39:36 Influenza, split virus, trivalent, preservative 9 completed Not Available [facility] 05/17/2023 02:39:36 Td(adult) unspecified formulation 5 completed DANITA salcedo [facility] 12/15/2024 09:23:28 Pneumococcal conjugate PCV 13 5 completed DANITA salcedo [facility] 12/15/2024 09:23:28 pneumococcal, unspecified formulation 5 completed DANITA salcedo [facility] 12/15/2024 09:23:28 Tdap 2 completed Not Available [facility] 09/28/2025 09:09:15 Past Encounters Encounter ID Performer Location Encounter Start Date Encounter Closed Date Diagnosis/Indication Diagnosis SNOMED-CT Code Diagnosis ICD10 Code Diagnosis IMO Codes Diagnosis Note [id number] Faraz Bright MD [facility] ([facility]) [address] [place] [address] 08/05/2025 10:35:44 08/05/2025 12:37:33 Bilateral pain of joint of hands 7878397550 4147270 M25.541 M25.542 [id number] continue present meds. Pain of knee region 1003 416762 M25.561 M25.562 G89.29 [id number] He is having increased pain in knees. Will refer back to orthopedic s for further evaluation . [id number] SOCORRO JOSEPH [facility] ([facility]) [address] [place] [address] 08/12/2025 13:28:28 08/12/2025 14:27:52 Recurrent falls 438849696 R29.6 [id number] Will send to ER for further evaluation and treatment. Report called to ER staff. [id number] SHARAD BROUSSARD PA-C [facility] ([facility]) [address] [place] [address] 08/24/2025 11:11:06 09/21/2025 07:27:03 Closed fracture of fourth lumbar vertebra 2698220283 5888988 S32.049S [id number] has a referal in to see Dr. Oleary to see if he is a candidate for kyphoplast y. Post-disch arge follow-up 902756543 Z51.89 [id number] imaging, notes and meds reviewed. Primary go narthrosis, bilateral 098261441 M17.0 [id number] get new xray right knee , tibia and ankle to confirm if fx or not Dementia 70409280 F03.C0 [id number] Health Concerns Section Related Observation LastModified by Organization Detai ls LastModified Time None Recorded Concern Status LastModified by Organization Details LastModified Time None Recorded Payers Encounter Date Sequence Insurance Name Policy Number Policy Gamble Covered Member ID Gamble Member ID Guarantor Name 08/24/2025 1 [place] (MEDICARE REPLACEMENT HMO) [id number] Kenneth Li [id number] Kenneth Li Notes Date Note Type Note Provider Name and Address Organization Details Recorded Time 5 text/htm l Back PainReported by PatientHPIFor severity, patient reportsinterferes with sleepandinterferes with work. For location, patient reportslumbar right. For quality, patient reportssharp,tingling,dull,s tiffness,throbbing, andpressure. For duration, patient [email or web address] days. For timing, patient reportsacute. For context, patient reportstraumaandfall. new admit to [facility] with advanced dementia had multiple falls at home and was taken to ER.Confirmed new L4 fx but there was some mixed documentation on a possible tibia fx. I read xray reports but no mention of tibia fx just a old fibular fx. but he is non wt bearing here due to it. SHARAD BROUSSARD PA-C [address] [place], [address], [facility] 09/20/2025 17:17:38 5 text/htm l patient complains of pain in hands and right knee. Nothing new. He is not eating well by report. Faraz Bright MD [address] [place] [address], [phone], [facility] 08/31/2025 11:27:13 5 text/htm l DementiaReported by PatientHPIFor associated symptoms, [...] injection tx for pain. Faraz Bright MD [address] [place] [address], [address], [facility] 09/27/2025 17:37:49
--- OUTSIDE RECORDS SUMMARY | 2025-10-01 10:48 | XMS_ITS | Continuity of Care Document ---
Author Organization [facility], LJuliaLSharon, [facility] ([facility]) Address [address] [place] [address] Care Team Providers Care Icu Tech Name Role Phone FARAZ BRIGHT Primary Care Provider Unavailabl e Assessment No assessment recorded. Plan of Treatment Reminders Order Date Submit Date Provider Last Modified By Organization Details Last Modified Time Details Appointments None recorded. Lab None recorded. Referral orthopedic surgeon [facility] [address] [place], [address], 10:35:04 Procedures None recorded. Surgeries None recorded. Imaging None recorded. Medication Orders None recorded. Patient TargetsNo targets recorded. Patient InstructionsNo instructions recorded. Reason for Referral Orthopedic Surgeon Referral for Pain of knee region Referring Physician: Faraz Bright, Family Medicine, Encounter Date: 08/05/2025 Results Created Date Observation Date Name Description Value Unit Range Abnormal Flag Note LastModifiedBy Organization Detail LastModifiedTime 08/25/2008/25/2025 XR, ankle , 3 or more view No observ ation record ed. [facility] Leonard Shah, [place], [address], 08/26/2025 09:13:25 Result Notes None recorded. Problems Name Problem SNOMED Code Status Onset Date Resolution Date Notes Provider Name and Address Organization Details Recorded Time Coronary atheroscl erosis 133409893 Active 2022 CORONARY ARTERY DISEASE; Impressio n: stable. DANITA salcedo, [facility] 5 17:37:16 Myocardia l infarctio n 83702078 Active 2022 Myocardia l Infarctio n; Febuary 08 DANITA salcedo, [facility] 5 17:37:16 Benign essential hypertens ion 0589713 Active 2022 DANITA MIKE [facility] 5 17:37:16 Osteoarth ritis 891271827 Active 2022 DANITA BILLS [facility] 5 17:37:16 Hypothyro idism 35740363 Active 2022 DANITA MIKE [facility] 5 17:37:16 Chronic obstructi ve pulmonary disease 21576982 Active 2022 DANITA BILLS [facility] 5 17:37:16 Pain of bilateral knee joints 366884253199 104 Active 2022 DANITA BILLS [facility] 5 17:37:16 Type 2 diabetes mellitus 95184951 Active 2022 DANITA BILLS [facility] 5 17:37:16 Atypical chest pain 316264306 Active 2022 DANITA BILLS [facility] 5 17:37:16 Coronary arteriosc lerosis 59352514 Active 2022 DANITA BILLS [facility] 5 17:37:16 Hyperlipi demia 53559252 Active 2022 DANITA FORDRIS [facility] 5 17:37:16 Major depressiv e disorder 960893675 Active 2024 DANITA salcedo [facility] 5 17:37:16 Osteoarth ritis of knee 966561455 Active 2024 DANITA BILLSADDI aslcedo [facility] 5 17:37:16 Bilateral pain of joint of hands 496744316754 49143 Active 2024 Faraz Bright MD [address] [place] [address], [address], [facility] 15:38:43 Low blood pressure 07802763 Active 2024 Faraz Bright MD [address] [place] [address], [address], [facility] 13:25:47 Unintenti onal weight loss 256230093 Active 2024 Faraz Bright MD [address] [place] [address], [address], [facility] 13:25:54 Bacterial urinary infection 716974914 Active 2024 Faraz Bright MD [address] [place] [address], [address], [facility] 08:41:30 Acute gastritis 46261468 Active 2024 Faraz Bright MD [address] [place] [address], [address], [facility] 16:43:19 Orthostat ic hypotensi on 74524294 Active 2024 Faraz Bright MD [address] [place] [address], [address], [facility] 15:05:44 Primary gonarthro sis, bilateral 472593317 Active 2024 Faraz Bright MD [address] [place], [address], [facility] 15:07:26 Pain of knee region 2508844900 Active 2024 Faraz Bright MD [address] [place], [address], [facility] 12:22:11 Closed fracture of fourth lumbar vertebra 434989971908 59062 Active 2024 NATAN salcedo [facility] 11:29:11 Low back pain 211122443 Active 2024 Faraz Bright MD [address] [place], [address], [facility] 09:02:05 Osteoarth ritis of right knee joint 720820441515 100 Active 2024 NATAN salcedo [facility] 5 11:55:08 Moderate dementia 183714211377 100 Active 2024 NATAN salcedo [facility] 5 11:55:52 Pressure injury of left heel stage II Active 2024 NATAN salcedo [facility] 10:49:17 Problem Notes None recorded. Procedures Surgical History Date Name Laterality Status Provider Name and Address Organization Details Recorded Time 5 Joint Inj Beta-shoulder, hip, knee completed Faraz Bright MD [address] [place], [address], [facility] 06/10/2025 15:10:02 5 Joint Inj Beta-shoulder, hip, knee completed Faraz Bright MD [address] [place], [address], [facility] 12/15/2024 10:16:38 procedure on heart completed Sarah Larsen [facility] 06/08/2024 11:56:59 Imaging Results None recorded. Procedure Notes None recorded. Medical Equipment None Reported. Allergies Allergen ID Allergen Name Allergen Category Reaction Reaction Severity Criticality Documentation Date Start Date Code Code System Note Provider Name and Address Organization Details Recorded Time 61706 clindamyc in Not available rash moderate low 08/10/20232022 2582 RxNorm SHARAD BROUSSARD PA-C [address] [place], [address], [facility] 17:17:40 Medications Name Sig Start Date Stop [...] Recorded 05/09/20 9:33AM by Antionette Ramirez LPN (Nichole kemp through Faraz Bright MD), Office Visit; Mail [...] 9; Recorded 07/02/20 11:41AM by Tiffanie corona (Authori deannd through Faraz Bright MD), Refill Request; Mail Order Quantity : 90 Tablet; Mail Order Days: 90 Days; Refill Quantity : 90; Tablet; Not Available Not Available Not Available Klayesta 100,000 unit/gram topical powder APPLY TO AFFECTED AREA TWICE A DAY 06/08 completed Not Available Not Available Not Available Vitals Date Recorded Body height Body mass index (BMI) Body weight Oxygen saturation Heart rate Systolic And Diastolic Provider Name and Address Organization Details Last Updated DateTime 5 170.18 cm 29.4 kg/m2 06923.3 7 g 95 % 87 /min 120/80 mm[Hg] DANITA BILLS [facility] 5 11:55:13 Social History Question Answer Notes LastModified by [employer] ion Details LastModified Time Tobacco Smoking Status Never Smoker DANITA BILLS [facility] 01/10/2023 10:58:29 What Was The Date Of Your Most Recent Tobacco Screening? 08/12/2025 [email or web address] Information not available 08/12/2025 Sex: Unknown Functional Status Question Answer Note LastModified by Organizat ion Details LastModified Time Do you use any illicit or recreational drugs? No [email or web address] Information not available 01/10/2023 What is your level of alcohol consumption? None [email or web address] Information not available 01/10/2023 Mental Status None recorded. Family History Nothing Reported. Medical History No medical history recorded. Immunizations Vaccine Type Date Status Note Provider Nam e and Address Organization Details Recorded Time Influenza, split virus, trivalent, preservative 0 completed Not Available [facility] 05/17/2023 02:39:36 pneumococcal polysaccharide PPV23 0 completed Not Available [facility] 05/17/2023 02:39:36 Influenza, split virus, trivalent, preservative 9 completed Not Available [facility] 05/17/2023 02:39:36 Td(adult) unspecified formulation 5 completed DANITA BILLS null, [facility] 12/15/2024 09:23:28 Pneumococcal conjugate PCV 13 5 completed DANITA BILLS null, [facility] 12/15/2024 09:23:28 pneumococcal, unspecified formulation 5 completed DANITA BILLS null, [facility] 12/15/2024 09:23:28 Tdap 2 completed Not Available [facility] 09/28/2025 09:09:15 Past Encounters Encounter ID Performer Location Encounter Start Date Encounter Closed Date Diagnosis/Indication Diagnosis SNOMED-CT Code Diagnosis ICD10 Code Diagnosis IMO Codes Diagnosis Note [id number] Faraz Bright MD [facility] ([facility]) [address] [place] [address] 08/05/2025 10:35:44 08/05/2025 12:37:33 Bilateral pain of joint of hands 8777505537 8038598 M25.541 M25.542 1834653629 continue present meds. Pain of knee region 1003 230327 M25.561 M25.562 G89.29 [id number] He is having increased pain in knees. Will refer back to orthopedic s for further evaluation . Health Concerns Section Related Observation LastModified by Organization Detai ls LastModified Time None Recorded Concern Status LastModified by Organization Details LastModified Time None Recorded Payers Encounter Date Sequence Insurance Name Policy Number Policy Gamble Covered Member ID Gamble Member ID Guarantor Name 08/05/2025 1 [place] (MEDICARE REPLACEMENT HMO) [id number] Kenneth Li [id number] Kenneth Li Notes Date Note Type Note Provider Name and Address Organization Details Recorded Time 08/05/2025 text/html Had a fall yesterday and hit his head. He was in the kitchen when it happened. Denies any pain from his fall yesterday.Still having pains in his hands as well as tingling. Faraz Bright MD [address] [place] [address], [address], [facility] 08/05/2025 12:26:45
--- OUTSIDE RECORDS SUMMARY | 2025-10-01 10:49 | XMS_ITS | Continuity of Care Document ---
Author Organization [facility] Oscar, LEric, [facility] ([facility]) Address [address] [place] [address] Care Team Providers Care Humanities And Languages Professor Name Role Phone FARAZ BRIGHT Primary Care [...] instructions recorded. Reason for Referral None Reported. Problems Name Problem SNOMED Code Status Onset Date Resolution Date Notes Provider Name and Address Organization Details Recorded Time Coronary atheroscl erosis 202057003 Active 2022 CORONARY ARTERY DISEASE; Impressio n: stable. DANITA salcedo [facility] 5 17:37:16 Myocardia l infarctio n 33697196 Active 2022 Myocardia l Infarctio n; Febuary 08 DANITA BILLS [facility] 5 17:37:16 Benign essential hypertens ion 2489303 Active 2022 [facility] MIKE [facility] 17:37:16 Osteoarth ritis 222945204 Active 2022 DANITA MIKE [facility] 5 17:37:16 Hypothyro idism 50717659 Active 2022 DANITA BILLS [facility] 5 17:37:16 Chronic obstructi ve pulmonary disease 52819286 Active 2022 DANITA BILLS [facility] 5 17:37:16 Pain of bilateral knee joints 519574775446 104 Active 2022 DANITA BILLS [facility] 5 17:37:16 Type 2 diabetes mellitus 28673343 Active 2022 DANIAT MIKE [facility] 5 17:37:16 Atypical chest pain 793876534 Active 2022 DANITA MIKE [facility] 5 17:37:16 Coronary arteriosc lerosis 06267304 Active 2022 DANITA BILLS [facility] 5 17:37:16 Hyperlipi demia 02026646 Active 2022 DANITA MIKE [facility] 5 17:37:16 Major depressiv e disorder 028772043 Active 2024 DANITA BILLS [facility] 5 17:37:16 Osteoarth ritis of knee 720333000 Active 2024 DANITA MIKE [facility] 5 17:37:16 Bilateral pain of joint of hands 698568596645 81274 Active 2024 Faraz Bright MD [address] [place] [address], [address] , [facility] 5 15:38:43 Low blood pressure 90422558 Active 2024 Faraz Bright MD [address] [place] [address], [address], [facility] 13:25:47 Unintenti onal weight loss 529632448 Active 2024 Faraz Bright MD [address] [place] [address], [address], [facility] 13:25:54 Bacterial urinary infection 181640102 Active 2024 Faraz Bright MD [address] [place] [address], [address], [facility] 08:41:30 Acute gastritis 96186817 Active 2024 Faraz Bright MD [address] [place] [address], [address], [facility] 16:43:19 Orthostat ic hypotensi on 46780773 Active 2024 Faraz Bright MD [address] [place] [address], [address], [facility] 15:05:44 Primary gonarthro sis, bilateral 511948302 Active 2024 Faraz Bright MD [address] [place] [address], [address], [facility] 15:07:26 Pain of knee region 3444591316 Active 2024 Faraz Bright MD [address] [place] [address], [address], [facility] 12:22:11 Closed fracture of fourth lumbar vertebra 373497093324 29386 Active 2024 NATAN salcedo, [facility] 5 11:29:11 Low back pain 665314227 Active 2024 Faraz Bright MD [address] [place], [address] , [facility] 5 09:02:05 Osteoarth ritis of right knee joint 177469250811 100 Active 2024 NATAN salcedo, [facility] 5 11:55:08 Moderate dementia 788857229129 100 Active 2024 NATANLUCIO LARRYLOS salcedo, [facility] 5 11:55:52 Pressure injury of left heel stage II Active 2024 NATANLUCIO LARRYLOS salcedo, [facility] 5 10:49:17 Problem Notes None recorded. Procedures Surgical History Date Name Laterality Status Provider Name and Address Organization Details Recorded Time 5 Joint Inj Beta-shoulder, hip, knee completed Faraz Bright MD [address] [place], [address], [facility] 06/10/2025 15:10:02 5 Joint Inj Beta-shoulder, hip, knee completed Faraz Bright MD [address] [place], [address], [facility] 12/15/2024 10:16:38 procedure on heart completed Sarah Larsen [facility] 06/08/2024 11:56:59 Imaging Results None recorded. Procedure Notes None recorded. Medical Equipment None Reported. Allergies Allergen ID Allergen Name Allergen Category Reaction Reaction Severity Criticality Documentation Date Start Date Code Code System Note Provider Name and Address Organization Details Recorded Time 13117 clindamyc in Not available rash moderate low 08/10/20232022 2582 RxNorm SHARAD BROUSSARD PA-C [address] [place], [address], [facility] [place] 3 17:17:40 Medications Name Sig Start Date [...] 05/09/20 9:33AM by Antionette Ramirez LPN (Authori zed through Faraz Bright MD), Office Visit; Mail [...] and Address Organization Details Last Updated DateTime 170.18 cm 26.6 kg/m2 20197.7 g 97.2 [degF] 60 /min 20 /min 90 % 108/60 mm[Hg] TIFFANIE BARKSDALE [facility] 11:35:34 Social History Question Answer Notes LastModified by [employer] Details LastModified Time Tobacco Smoking Status Never Smoker DANITA salcedo [facility] 01/10/2023 10:58:29 What Was The Date Of Your Most Recent Tobacco Screening? 08/12/2025 [email or web address] Information not available 08/12/2025 Sex: Unknown Functional Status Question Answer Note LastModified by [employer] Details LastModified Time Do you use any illicit or recreational drugs? No [email or web address] Information not available 01/10/2023 What is your level of alcohol consumption? None Information not available 01/10/2023 Mental Status None recorded. Family History Nothing Reported. Medical History No medical history recorded. Immunizations Vaccine Type Date Status Note Provider Nam e and Address Organization Details Recorded Time Influenza, split virus, trivalent, preservative 0 completed Not Available [facility] 05/17/2023 02:39:36 pneumococcal polysaccharide PPV23 0 completed Not Available [facility] 05/17/2023 02:39:36 Influenza, split virus, trivalent, preservative 9 completed Not Available [facility] 05/17/2023 02:39:36 Td(adult) unspecified formulation [address] [facility] 12/15/2024 09:23:28 Pneumococcal conjugate PCV [address] [facility] 12/15/2024 09:23:28 pneumococcal, unspecified formulation [address] [facility]. 12/15/2024 09:23:28 Tdap 2 completed Not Available [facility] 09/28/2025 09:09:15 Past Encounters Encounter ID Performer Location Encounter Start Date Encounter Closed Date Diagnosis/Indication Diagnosis SNOMED-CT Code Diagnosis ICD10 Code Diagnosis IMO Codes Diagnosis Note [id number] Faraz Bright MD [facility] ([facility]) [address] [place] [address] 08/31/2025 09:00:46 08/31/2025 11:48:41 Need for personal care assistance 1313678712 7781326 Z74.1 9708866 Lives in [place] 16 4731702 Z78.9 4220048 Benign ess ential hypertension 8051149 I10 BP running good at this time. Coronary atherosclerosis 151259302 I25.10 Type 2 antonio betes mellitus 41567887 E11.9 Bilateral pain of joint of hands 6784667044 5633622 M25.541 M25.542 7068350177 continue present meds and OT as directed. Osteoarthr itis of knee 866503722 M17.9 right knee worse than the left. FOllowed by orthopedic s. Low back pain 768617689 M54.50 694943 followed by orthopedic s. MRI pending. [id number] SHARAD BROUSSARD PA-C [facility] ([facility]) [address] [place] [address] 09/07/2025 11:52:31 09/28/2025 10:03:49 Osteoarthritis of right knee joint 3334681331 77616 M17.11 6029327 sees ortho today nno Moderate dementia 956644 6104 42814 F03.B0 5519624021 Benign ess ential hypertension 3513704 I10 vitals reviewed and BP have been at goal. compliant with meds. [id number] Faraz Bright MD [facility] ([facility]) [address] [place] [address] 09/28/2025 09:09:05 09/28/2025 14:00:25 Need for personal care assistance 6117367407 4210709 Z74.1 4459486 Lives in [place] 16 0666565 Z78.9 3283420 Benign ess ential hypertension 5898320 I10 BP running good at this time. Coronary arteriosclerosis 95364313 I25.10 Type 2 antonio betes mellitus 93262897 E11.9 Moderate dementia 901549 0394 47644 F03.B0 3032395941 Worsening memory loss and confusion. Chronic ob structive pulmonary disease 89240699 J44.9 stable. Health Concerns Section Related Observation LastModified by Organization Detai ls LastModified Time None Recorded Concern Status LastModified by Organization Details LastModified Time None Recorded Payers Encounter Date Sequence Insurance Name Policy Number Policy Gamble Covered Member ID Gamble Member ID Guarantor Name 09/28/2025 1 [place] (MEDICARE REPLACEMENT HMO) [id number] Kenneth Li [id number] Kenneth Li Notes Date Note Type Note Provider Name and Address Organization Details Recorded Time 09/28/2025 text/html Dementia is progressive. He has no complaints I don't remember anything . Faraz Bright MD [address] [place] [address], [address], [facility] 09/28/2025 13:59:14
--- OUTSIDE RECORDS SUMMARY | 2025-10-01 10:49 | XMS_ITS | Continuity of Care Document ---
Author Organization [facility] Oscar, LEric, [facility] ([facility]) Address [address] [place] [address] Care Team Providers Care Lime Vat Tender Name Role Phone FARAZ BRIGHT Primary Care [...] more view No observ ation record ed. [email or web address] [facility] Leonard Shah, [place], [address], 08/26/2025 09:13:25 Result Notes None recorded. Problems Name Problem SNOMED Code Status Onset Date Resolution Date Notes Provider Name and Address Organization Details Recorded Time Coronary atheroscl erosis 437450006 Active 2022 CORONARY ARTERY DISEASE; Impressio n: stable. DANITA salcedo [facility] 17:37:16 Myocardia l infarctio n 38620779 Active 2022 Myocardia l Infarctio n; Febuary 08 DANITA salcedo [facility] 17:37:16 Benign essential hypertens ion 2574349 Active 2022 DANITA BILLS [facility] 5 17:37:16 Osteoarth ritis 040125523 Active 2022 DANITA BILLS [facility] 5 17:37:16 Hypothyro idism 84833241 Active 2022 DANITA BILLS [facility] 5 17:37:16 Chronic obstructi ve pulmonary disease 97073601 Active 2022 DANITAGlenn BILLS [facility] 5 17:37:16 Pain of bilateral knee joints 124215552432 104 Active 2022 DANITA MIKE [facility] 5 17:37:16 Type 2 diabetes mellitus 23433742 Active 2022 DANITA BILLS [facility] 5 17:37:16 Atypical chest pain 405216208 Active 2022 DANITA BILLS [facility] 5 17:37:16 Coronary arteriosc lerosis 86778445 Active 2022 DANITA BILLS [facility] 5 17:37:16 Hyperlipi demia 69715879 Active 2022 DANITA BILLS [facility] 5 17:37:16 Major depressiv e disorder 834071517 Active 2024 DANITA BILLS [facility] 5 17:37:16 Osteoarth ritis of knee 133762951 Active 2024 DANITA BILLS [facility] 17:37:16 Bilateral pain of joint of hands 733112722374 53030 Active 2024 Faraz Bright MD [address] [place] [address], [address], [facility] 15:38:43 Low blood pressure 97670948 Active 2024 Faraz Bright MD [address] [place] [address], [address] 5, [facility] 13:25:47 Unintenti onal weight loss 142365618 Active 2024 Faraz Bright MD [address] [place] [address], [address] 5, [facility] 13:25:54 Bacterial urinary infection 764251850 Active 2024 Faraz Bright MD [address] [place] [address], [address]37[address] 5, [facility] 08:41:30 Acute gastritis 97177815 Active 2024 Faraz Bright MD [address] [place] [address], [address] 5, [facility] 16:43:19 Orthostat ic hypotensi on 66663812 Active 2024 Faraz Bright MD [address] [place] [address], [address] 5, [facility] 15:05:44 Primary gonarthro sis, bilateral 796925234 Active 2024 Faraz Bright MD [address] [place] [phone] , [facility] 15:07:26 Pain of knee region 5555140164 Active 2024 Faraz Bright MD [address] [place], [address], [facility] 5 12:22:11 Closed fracture of fourth lumbar vertebra 751915695278 29486 Active 2024 NATAN MCKAY [facility] 5 11:29:11 Low back pain 091647994 Active 2024 Faraz Bright MD [address] [place], [address], [facility] 5 09:02:05 Osteoarth ritis of right knee joint 460050073388 100 Active 2024 NATAN SAUDLOS [facility] 5 11:55:08 Moderate dementia 975195227621 100 Active 2024 NATAN HASAUDLOS [facility] 5 11:55:52 Pressure injury of left heel stage II Active 2024 NATAN SAUDLOS [facility], [facility] 5 10:49:17 Problem Notes None recorded. Procedures Surgical History Date Name Laterality Status Provider Name and Address Organization Details Recorded Time 5 Joint Inj Beta-shoulder, hip, knee completed Faraz Bright MD [address] [place], [address], [facility] 06/10/2025 15:10:02 5 Joint Inj Beta-shoulder, hip, knee completed Faraz Bright MD [address] [place] [address], [phone], [facility] 12/15/2024 10:16:38 procedure on heart completed Sarah Larsen [facility] 06/08/2024 11:56:59 Imaging Results None recorded. Procedure Notes None recorded. Medical Equipment None Reported. Allergies Allergen ID Allergen Name Allergen Category Reaction Reaction Severity Criticality Documentation Date Start Date Code Code System Note Provider Name and Address Organization Details Recorded Time 85302 clindamyc in Not available rash moderate low 08/10/20232022 2582 RxNorm SHARAD BROUSSARD PA-C [address] [place] [address], [phone] , [facility] 17:17:40 Medications [...] (BMI) Body weight Oxygen saturation Heart rate Body temperature Systolic And Diastolic Provider Name and Address Organization Details Last Updated DateTime 170.18 cm 22.7 kg/m2 88813.8 9 g 93 % 74 /min 98.7 [degF] 122/60 mm[Hg] Cesilia Castro [facility] 13:37:17 Social History Question Answer Notes LastModified by [employer] Details LastModified Time Tobacco Smoking Status Never Smoker DANITA salcedo [facility] 01/10/2023 10:58:29 What Was The Date Of Your Most Recent Tobacco Screening? 08/12/2025 [email or web address] Information not available 08/12/2025 Sex: Unknown Functional Status Question Answer Note LastModified by [employer] Details LastModified Time Do you use any illicit or recreational drugs? No [email or web address] Information not available 01/10/2023 What is your level of alcohol consumption? None [email or web address] Information not available 01/10/2023 Mental Status None recorded. Family History Nothing Reported. Medical History No medical history recorded. Immunizations Vaccine Type Date Status Note Provider Nam e and Address Organization Details Recorded Time Influenza, split virus, trivalent, preservative 0 completed Not Available [facility] 05/17/2023 02:39:36 pneumococcal polysaccharide PPV23 0 completed Not Available [facility] 05/17/2023 02:39:36 Influenza, split virus, trivalent, preservative 9 completed Not Available [facility] 05/17/2023 02:39:36 Td(adult) unspecified formulation 5 completed DANITA BILLS null, [facility] 12/15/2024 09:23:28 Pneumococcal conjugate PCV 13 5 completed DANITA BILLS null, [facility] 12/15/2024 09:23:28 pneumococcal, unspecified formulation 5 completed DANITA BILLS null, [facility] 12/15/2024 09:23:28 Tdap 2 completed Not Available [facility] 09/28/2025 09:09:15 Past Encounters Encounter ID Performer Location Encounter Start Date Encounter Closed Date Diagnosis/Indication Diagnosis SNOMED-CT Code Diagnosis ICD10 Code Diagnosis IMO Codes Diagnosis Note [id number] Faraz Bright MD [facility] ([facility]) [address] [place] [address] 5 08/05/2025 10:35:44 08/05/2025 12:37:33 Bilateral pain of joint of hands 5784693786 1159514 M25.541 M25.542 3511565858 continue present meds. Pain of knee region 1003 057545 M25.561 M25.562 G89.29 [id number] He is having increased pain in knees. Will refer back to orthopedic s for further evaluation . [id number] SOCORRO JOSEPH [facility] ([facility]) [address] [place] [phone] 5 08/12/2025 13:28:28 08/12/2025 14:27:52 Recurrent falls 371653649 R29.6 [id number] Will send to ER for further evaluation and treatment. Report called to ER staff. Health Concerns Section Related Observation LastModified by Organization Detai ls LastModified Time None Recorded Concern Status LastModified by Organization Details LastModified Time None Recorded Payers Encounter Date Sequence Insurance Name Policy Number Policy Gamble Covered Member ID Gamble Member ID Guarantor Name 08/12/2025 1 [place] DOMINGUEZ - MED[place] (MEDICARE REPLACEMENT HMO) [id number] Kenneth Li [id number] Kenneth Jameel Guillermo Notes Date Note Type Note Provider Name and Address Organization Details Recorded Time 08/12/2025 text/html ROS as noted in the HPI Walk inHad 2 falls. One on Friday and the other he cannot remember when. He tripped. Having ankle pain in right side. A lot of swelling. Bumped head and hurt right hip. Possible third fall off of couch which patient has no memory of at time of exam. SOCORRO JOSEPH [address] [place] [address], [phone], [facility] 08/12/2025 14:26:39
--- OUTSIDE RECORDS SUMMARY | 2025-10-01 10:49 | XMS_ITS | Continuity of Care Document ---
Author Organization [facility] Oscar, LEric, [facility] ([facility]) Address [address] [place] [address] Care Team Providers Care Bond Runner Name Role Phone FARAZ BRIGHT Primary Care [...] more view No observ ation record ed. [email or web address] [facility] Leonard Shah, [place], [address], 08/26/2025 09:13:25 Result Notes None recorded. Problems Name Problem SNOMED Code Status Onset Date Resolution Date Notes Provider Name and Address Organization Details Recorded Time Coronary atheroscl erosis 829068334 Active 2022 CORONARY ARTERY DISEASE; Impressio n: stable. DANITA salcedo [facility] 17:37:16 Myocardia l infarctio n 46686257 Active 2022 Myocardia l Infarctio n; Febuary 08 DANITA salcedo [facility] 17:37:16 Benign essential hypertens ion 8288873 Active 2022 DANITA BILLS [facility] 5 17:37:16 Osteoarth ritis 288147642 Active 2022 DANITA BILLS [facility] 5 17:37:16 Hypothyro idism 06111868 Active 2022 DANITA BILLS [facility] 5 17:37:16 Chronic obstructi ve pulmonary disease 55819583 Active 2022 DANITAGlenn BILLS [facility] 5 17:37:16 Pain of bilateral knee joints 403750388186 104 Active 2022 DANITA MIKE [facility] 5 17:37:16 Type 2 diabetes mellitus 49550602 Active 2022 DANITA BILLS [facility] 5 17:37:16 Atypical chest pain 438727925 Active 2022 DANITA BILLS [facility] 5 17:37:16 Coronary arteriosc lerosis 51801997 Active 2022 DANITA BILLS [facility] 5 17:37:16 Hyperlipi demia 25899712 Active 2022 DANITA BILLS [facility] 5 17:37:16 Major depressiv e disorder 428597218 Active 2024 DANITA BILLS [facility] 5 17:37:16 Osteoarth ritis of knee 082259890 Active 2024 DANITA BILLS [facility] 17:37:16 Bilateral pain of joint of hands 496504830604 20601 Active 2024 Faraz Bright MD [address] [place] [address], [address] 5, [facility] 15:38:43 Low blood pressure 30028575 Active 2024 Faraz Bright MD [address] [place] [address], [address]73 5, [facility] 13:25:47 Unintenti onal weight loss 352713979 Active 2024 Faraz Bright MD [address] [place] [address], 675[address]990 5, [facility] 13:25:54 Bacterial urinary infection 447114719 Active 2024 Faraz Bright MD [address] [place] [address], [phone] 5, [facility] 08:41:30 Acute gastritis 11338240 Active 2024 Faraz Bright MD [address] [place] [address], [phone] 5, [facility] 16:43:19 Orthostat ic hypotensi on 75519209 Active 2024 Faraz Bright MD [address] [place] [address], [address] 5, [facility] 15:05:44 Primary gonarthro sis, bilateral 169964142 Active 2024 Faraz Bright MD [address] [place] [phone] , [facility] 15:07:26 Pain of knee region 1900747371 Active 2024 Faraz Bright MD [address] [place], [address], [facility] 5 12:22:11 Closed fracture of fourth lumbar vertebra 335935392834 40368 Active 2024 NATAN MCKAY [facility] 5 11:29:11 Low back pain 878956503 Active 2024 Faraz Bright MD [address] [place], [address], [facility] 5 09:02:05 Osteoarth ritis of right knee joint 914647399406 100 Active 2024 NATAN SAUDLOS [facility] 5 11:55:08 Moderate dementia 358793768041 100 Active 2024 NATAN HASAUDLOS [facility] 5 11:55:52 Pressure injury of left heel stage II Active 2024 NATAN SAUDLOS [facility], [facility] 5 10:49:17 Problem Notes None recorded. Procedures Surgical History Date Name Laterality Status Provider Name and Address Organization Details Recorded Time 5 Joint Inj Beta-shoulder, hip, knee completed Faraz Bright MD [address] [place], [address], [facility] 06/10/2025 15:10:02 5 Joint Inj Beta-shoulder, hip, knee completed Faraz Bright MD [address] [place] [address], [phone], [facility] 12/15/2024 10:16:38 procedure on heart completed Sarah Larsen [facility] 06/08/2024 11:56:59 Imaging Results None recorded. Procedure Notes None recorded. Medical Equipment None Reported. Allergies Allergen ID Allergen Name Allergen Category Reaction Reaction Severity Criticality Documentation Date Start Date Code Code System Note Provider Name and Address Organization Details Recorded Time 63693 clindamyc in Not available rash moderate low 08/10/20232022 2582 RxNorm SHARAD BROUSSARD PA-C [address] [place] [address], [address] , [facility] 17:17:40 Medications Name Sig Start Date [...] Updated DateTime 5 170.18 cm 27.9 kg/m2 16544.4 4 g 97.7 [degF] 80 /min 20 /min 90 % 110/60 mm[Hg] TIFFANIE BARKSDALE [facility] 5 11:21:49 Social History Question Answer Notes LastModified by ID [employer] Details LastModified Time Tobacco Smoking Status Never Smoker DANITA salcedo, [facility] 01/10/2023 10:58:29 What Was The Date Of Your Most Recent Tobacco Screening? 08/12/2025 [email or web address] Information not available 08/12/2025 Sex: Unknown Functional Status Question Answer Note LastModified by ID [employer] Details LastModified Time Do you use any illicit or recreational drugs? No [email or web address] Information not available 01/10/2023 What is your level of alcohol consumption? None [email or web address] Information not available 01/10/2023 Mental Status None recorded. Family History Nothing Reported. Medical History No medical history recorded. Immunizations Vaccine Type Date Status Note Provider Nam e and Address Organization Details Recorded Time Influenza, split virus, trivalent, preservative 0 completed Not Available [facility] 05/17/2023 02:39:36 pneumococcal polysaccharide PPV23 0 completed Not Available [facility] 05/17/2023 02:39:36 Influenza, split virus, trivalent, preservative 01/01/201 9 completed Not Available [facility] 05/17/2023 02:39:36 Td(adult) unspecified formulation 5 completed DANITA salcedo, [facility] 12/15/2024 09:23:28 Pneumococcal conjugate PCV 13 5 completed DANITA BILLS null, [facility] 12/15/2024 09:23:28 pneumococcal, unspecified formulation 5 completed DANITA BILLS null, [facility] 12/15/2024 09:23:28 Tdap 2 completed Not Available [facility] 09/28/2025 09:09:15 Past Encounters Encounter ID Performer Location Encounter Start Date Encounter Closed Date Diagnosis/Indication Diagnosis SNOMED-CT Code Diagnosis ICD10 Code Diagnosis IMO Codes Diagnosis Note [id number] Faraz Bright MD [facility] ([facility]) [address] [place] [address] 08/05/2025 10:35:44 08/05/2025 12:37:33 Bilateral pain of joint of hands 5368694312 0926564 M25.541 M25.542 6710440422 continue present meds. Pain of knee region 1003 823861 M25.561 M25.562 G89.29 [id number] He is having increased pain in knees. Will refer back to orthopedic s for further evaluation . [id number] SOCORRO JOSEHP [facility] ([facility]) [address] [place] [address] 5 08/12/2025 13:28:28 08/12/2025 14:27:52 Recurrent falls 400448213 R29.6 [id number] Will send to ER for further evaluation and treatment. Report called to ER staff. [id number] SHARAD BROUSSARD PA-C [facility] ([facility]) [address] [place] [address] 5 08/24/2025 11:11:06 09/21/2025 07:27:03 Closed fracture of fourth lumbar vertebra 5489199727 7509544 S32.049S [id number] has a referal in to see Dr. Oleary to see if he is a candidate for kyphoplast y. Post-disch arge follow-up 867242252 Z51.89 [id number] imaging, notes and meds reviewed. Primary go narthrosis, bilateral 144249895 M17.0 6750661 get new xray right knee , tibia and ankle to confirm if fx or not Dementia 79228700 F03.C0 5244328337 [id number] Faraz Bright MD [facility] ([facility]) [address] [place] [address] 08/31/2025 09:00:46 08/31/2025 11:48:41 Need for personal care assistance 3295746698 4884895 Z74.1 [id number] Lives in assisted 16 9521546 Z78.9 0779268 Benign ess ential hypertension 2177261 I10 BP running good at this time. Coronary atherosclerosis 227075246 I25.10 Type 2 antonio betes mellitus 88271774 E11.9 Bilateral pain of joint of hands 6663675862 8082668 M25.541 M25.542 8543401685 continue present meds and OT as directed. Osteoarthr itis of knee 668347198 M17.9 right knee worse than the left. FOllowed by orthopedic s. Low back pain 788417592 M54.50 130530 followed by orthopedic s. MRI pending. Health Concerns Section Related Observation LastModified by Organization Detai ls LastModified Time None Recorded Concern Status LastModified by Organization Details LastModified Time None Recorded Payers Encounter Date Sequence Insurance Name Policy Number Policy Gamble Covered Member ID Gamble Member ID Guarantor Name 08/31/2025 1 [place] (MEDICARE REPLACEMENT HMO) [id number] Kenneth Li [id number] Kenneth Li Notes Date Note Type Note Provider Name and Address Organization Details Recorded Time 08/31/2025 text/html patient complains of pain in hands and right knee. Nothing new. He is not eating well by report. Faraz Bright MD [address] [place] [address], [phone], [facility] Tommie Chamorro [facility], LJuliaLSharon 08/31/2025 11:27:13
--- NOTE | 2025-10-01 10:53 | W.ED.AMS ---
HPI - Altered Mental Status General: Chief Complaint: Altered Mental Status Stated Complaint: ams Time Seen by Provider: 10/01/25 10:53 History of Present Illness: 85-year-old man with a history of depression, hypertension, hyperlipidemia, hypothyroidism, right bundle branch block, peripheral arterial disease, who presents to the emergency room by ambulance from [facility] with increased altered mental status over the past few days. Apparently has had some cough. AC has some dementia but is not this altered most of the time. He says he is just not feeling well. No focal pain complaints Related Data Home Medications ?Medication ?Instructions ?Recorded ?Confirmed levothyroxine 25 mcg tablet 25 mcg PO DAILY@0700 10/03/20 10/01/25 ascorbic acid (vitamin C) 500 mg 500 mg PO DAILY 02/21/22 10/01/25 tablet aspirin 81 mg tablet,delayed 81 mg PO DAILY 02/21/22 10/01/25 release (Adult Low Dose Aspirin) folic acid 1 mg tablet 1 mg PO DAILY 02/21/22 10/01/25 paroxetine HCl 10 mg tablet 10 mg PO DAILY 12/20/22 10/01/25 diclofenac sodium 50 mg 50 mg PO DAILY 08/13/25 10/01/25 tablet,delayed release famotidine 20 mg tablet 20 mg PO BID 08/13/25 10/01/25 losartan 25 mg tablet 25 mg PO DAILY 08/13/25 10/01/25 metoprolol tartrate 25 mg tablet 12.5 mg PO BID 08/13/25 10/01/25 acetaminophen 325 mg tablet 650 mg PO Q7H PRN Pain 10/01/25 10/01/25 bisacodyl 10 mg rectal suppository 10 mg WA DAILY PRN Constipation 10/01/25 10/01/25 hydrocodone 5 mg-acetaminophen 325 1 tab PO Q7H PRN Pain 10/01/25 10/01/25 mg tablet magnesium hydroxide 400 mg/5 mL 30 ml PO DAILY PRN Constipation 10/01/25 10/01/25 oral suspension (Milk of Magnesia) multivitamin 1 tab PO QAM 10/01/25 10/01/25 polyethylene glycol 3350 17 17 g PO DAILY constipation 10/01/25 10/01/25 gram/dose oral powder (Miralax) sodium phosphates 19 gram-7 118 ml WA Q8H PRN Constipation 10/01/25 10/01/25 gram/118 mL enema (Fleet Enema) tamsulosin 0.4 mg capsule 0.4 mg PO BEDTIME 10/01/25 10/01/25 Previous Rx's ?Medication ?Instructions ?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 Skin symptoms: Negative except as documented in HPI. Eye symptoms: Negative except as documented in HPI. ENMT symptoms: Negative except as documented in HPI. Respiratory symptoms: Negative except as documented in HPI. Cardiovascular symptoms: Negative except as documented in HPI. Gastrointestinal symptoms: Negative except as documented in HPI. Genitourinary symptoms: Negative except as documented in HPI. Musculoskeletal symptoms: Negative except as documented in HPI. Neurologic symptoms: Negative except as documented in HPI. Psychiatric symptoms: Negative except as documented in HPI. Endocrine symptoms: Negative except as documented in HPI. [facility] ED PFSH: Medical History (Updated 10/01/25 @ 12:29 by Lucy Villasenor MD) RBBB Depression Hypertension Hyperlipidemia Hypothyroidism Surgical History S/P CABG x 3 Social History Smoking and tobacco/nicotine status: former use of tobacco/nicotine Alcohol intake: never Physical Exam Narrative: General: Alert, no acute distress. Skin: Warm, dry. Head: Normocephalic, atraumatic. Neck: Supple, trachea midline. Eye: Extraocular movements are intact. Ears, nose, mouth and throat: Dry oral mucosa Cardiovascular: Regular, Normal peripheral perfusion. Respiratory: Lungs are clear to auscultation, respirations are non-labored, breath sounds are equal, Symmetrical chest wall expansion. Gastrointestinal: Soft, Nontender, Non distended Musculoskeletal: Normal ROM, no deformity. Neurological: Alert and oriented, No focal neurological deficit observed. Psychiatric: Cooperative, appropriate mood & affect. Course Vital Signs: Vital signs: Vital Signs Temperature 97.6 F 10/01/25 10:48 Pulse Rate 84 10/01/25 12:00 Respiratory Rate 18 10/01/25 10:48 Blood Pressure 105/54 10/01/25 12:00 Pulse Oximetry 99 10/01/25 12:00 Oxygen Delivery Me thod Room Air 10/01/25 12:00 MDM - Altered Mental Status Medical Decision Making Medical decision making Patient's reason for coming to the emergency room: Social determinants: I reviewed the patient's medical record. 85-year-old man with a history of depression, hypertension, hyperlipidemia, hypothyroidism, right bundle branch block, peripheral arterial disease, I reviewed the patient's current home meds Patient is not on any anticoagulation. He does take blood pressure meds, thyroid meds, depression meds. Alternate historians: None Differential diagnosis including but not limited to and based on the above HPI, review of systems and physical exam: In this patient with altered mental status: Stroke. Hypoglycemia. Metabolic encephalopathy. Infections such as pneumonia, urinary tract infection, Covid-19, Influenza. Electrolyte abnormalities such as hypernatremia. Renal failure / uremia. Hepatic encephalopathy. Hypoxemia. Hypercapnic respiratory failure. Psychosis. Drug or alcohol intoxication. Medication overdose. Orders placed to evaluate differential diagnosis based on the above differential, HPI and physical exam EKG: Time 11:28 AM rate 80. Normal sinus rhythm, No ST-T changes, no ectopy, right bundle branch block, This was reviewed and interpreted by myself the ER physician at 11:34 AM. Known right bundle branch block Chest x-ray: No acute process. No infiltrate. No pneumothorax. This was reviewed and interpreted by myself the emergency room physician. I also reviewed the radiology report. Lab Review: Laboratory results were reviewed and interpreted by myself the emergency room physician. Patient is COVID-positive. No leukocytosis. No anemia. Patient does have some acute renal insufficiency with a BUN/creatinine of 50 and 1.2. He has evidence of a urinary tract infection with 21-50 whites but there is no bacteria. There is some blood but this was a cath specimen. Assessment of risk: Level of risk: Hospitalization considerations: Reexamination: Patient's blood pressure has normalized. He has been above 100 consistently since he received fluids. No focal motor deficits. Pleasantly confused. Consultation: I spoke with Dr. Garcia who is on-call for hospitalist service who agrees to admission. He does request a CT scan of the abdomen without contrast to rule out any obstructive uropathy prior to admission. This has been done. CT of the abdomen pelvis without contrast: Prostate enlargement with some bladder distention. Nephrolithiasis but no ureteral stones. No hydronephrosis. Renal cyst is present. Cholelithiasis without cholecystitis. Diverticulosis without diverticulitis. This was reviewed and interpreted by myself the emergency room physician. I also reviewed the radiology report. Assessment and plan: COVID-19 Urinary tract infection Dehydration Acute on chronic renal insufficiency Metabolic encephalopathy -2.5 L normal saline bolus. Fluid volumes based on ideal body weight. -Broad-spectrum antibiotics were administered. Zyvox and meropenem -Sepsis quality measures. -Lactic acid with a reflex was ordered. -Blood cultures were ordered. ?I reevaluated the patient's volume status after sepsis fluids were given. -I discussed the patient with the hospitalist on-call who is admitting the patient. - Discussed findings and plan with patient. Answered any questions. - All laboratory values were reviewed and interpreted personally by myself, the ER physician - All imaging was reviewed and interpreted personally by myself, the ER physician. - Evaluation and treatment of this problem were appropriate in the emergency setting Critical Care: -I spent a total of 42 minutes of critical care time managing the patient, independent of any other practitioner. -The time involved in the performance of separately reportable procedures was not counted towards critical care time. Lab Data 10/01/25 10:55 10/01/25 10:55 Radiology Impressions Chest X-Ray 10/01/25 10:54 IMPRESSION: No acute findings. Abdomen/Pelvis CT 10/01/25 12:25 IMPRESSION: 1. Severe prostate enlargement with bladder distension 2. Bilateral nephrolithiasis with no ureteral stone noted 3. A benign renal cyst or cysts have been detected. No further follow-up imaging is required. 4. Cholelithiasis 5. Sigmoid diverticulosis 6. Small right inguinal hernia COMMENTS: Consistent with the [place] [employer]'s Incidental Findings Committee white paper (J Am Fco Radiol 2018): Any incidental renal lesion less than 1 cm or classified as too small to characterize, or any incidental cystic renal lesion characterized as simple-appearing, is likely benign. No follow-up imaging is recommended for these lesions per consensus recommendations based on imaging criteria. Laboratory Results WBC 7.81 10^3/uL (3.29-11.43) 10/01/25 10:55 RBC 4.43 10^6/uL (3.85-5.65) 10/01/25 10:55 Hgb 13.10 g/dL (11.27-16.99) 10/01/25 10:55 Hct 40.6 % (37-53) 10/01/25 10:55 MCV 91.6 fl (82-101) 10/01/25 10:55 MCH 29.6 pg (27-33) 10/01/25 10:55 MCHC 32.3 g/dL (30-55) 10/01/25 10:55 RDW 13.9 % (12.1-15.1) 10/01/25 10:55 Plt Count 219 10^3/cmm (157-399) 10/01/25 10:55 MPV 11.6 fL (7.4-10.4) H 10/01/25 10:55 Neut % (Auto) 71.6 % 10/01/25 10:55 Lymph % (Auto) 16.0 % 10/01/25 10:55 [place] % (Auto) 9.0 % 10/01/25 10:55 Eos % (Auto) 2.8 % 10/01/25 10:55 Baso % (Auto) 0.3 % 10/01/25 10:55 Neut # (Auto) 5.60 10^3/uL (1.8-7.7) 10/01/25 10:55 Lymph # (Auto) 1.3 10^3/uL (0.8-4.8) 10/01/25 10:55 [place] # (Auto) 0.7 10^3/uL (0.2-0.9) 10/01/25 10:55 Eos # (Auto) 0.2 10^3/uL (0.0-0.8) 10/01/25 10:55 Baso # (Auto) 0.0 10^3/uL (0.0-0.1) 10/01/25 10:55 Nucleated RBC % (auto) 0 % 10/01/25 10:55 Nucleated RBCs # 0.0 /100WBC 10/01/25 10:55 Sodium 134 mmol/L (136-145) L 10/01/25 10:55 Potassium 5.9 mmol/L (3.5-5.1) H 10/01/25 10:55 Chloride 98 mmol/L (98-107) 10/01/25 10:55 Carbon Dioxide 26 mmol/L (22-29) 10/01/25 10:55 Anion Gap 15.9 (5-19) 10/01/25 10:55 BUN 52 mg/dL (8-23) H 10/01/25 10:55 Creatinine 1.2 mg/dL (0.7-1.2) 10/01/25 10:55 GFR Calculation Not Reportable 10/01/25 10:55 Glucose 99 mg/dL (65-115) 10/01/25 10:55 Calculated Osmolality 292 mOsm/kg (285-295) 10/01/25 10:55 Lactic Acid 1.5 mmol/L (0.5-2.2) 10/01/25 10:55 Calcium 9.2 mg/dL (8.5-10.5) 10/01/25 10:55 Total Bilirubin 0.5 mg/dL (0.15-1.2) 10/01/25 10:55 AST 62 U/L (0-40) H 10/01/25 10:55 ALT 84 U/L (0-41) H 10/01/25 10:55 Alkaline Phosphatase 293 U/L (40-130) H 10/01/25 10:55 Troponin T Baseline 96 ng/L (0-15) H 10/01/25 10:55 Troponin T 60 Minute 77.76 ng/L (0-15) H 10/01/25 12:00 Delta Troponin T -18.24 ABS# (0-10) L 10/01/25 12:00 C-Reactive Protein 41.8 mg/L (0.0-4.9) H 10/01/25 10:55 Total Protein 6.5 g/dL (6.6-8.7) L 10/01/25 10:55 Albumin 3.8 g/dL (3.5-5.2) 10/01/25 10:55 Globulin 2.7 g/dL (1.3-4.6) 10/01/25 10:55 Procalcitonin 0.11 ng/mL (0-0.5) 10/01/25 10:55 Urine Color Yellow (Yellow) 10/01/25 11:55 Urine Appearance Clear (CLEAR) 10/01/25 11:55 Urine pH 6.0 (5-7) 10/01/25 11:55 Ur Specific [place] 1.015 (1.005-1.030) 10/01/25 11:55 Urine Protein Negative (Negative) 10/01/25 11:55 Urine Glucose (UA) Negative (Normal) 10/01/25 11:55 Urine Ketones Trace (Negative) 10/01/25 11:55 Urine Blood 2+ (Negative) A 10/01/25 11:55 Urine Nitrate Negative (Negative) 10/01/25 11:55 Urine Bilirubin Negative (Negative) 10/01/25 11:55 Urine Urobilinogen 1.0 mg/dL (Negative) 10/01/25 11:55 Ur Leukocyte Esterase 2+ (Negative) A 10/01/25 11:55 Urine RBC 21-50 /hpf (0-2) H 10/01/25 11:55 Urine WBC 21-50 /hpf (0-5) H 10/01/25 11:55 Ur Squamous Epith Cells 0-5 /hpf (0-5) 10/01/25 11:55 Amorphous Sediment Not Reportable 10/01/25 11:55 Urine Bacteria None seen /hpf (NONE) 10/01/25 11:55 Hyaline Casts 8.67 /lpf 10/01/25 11:55 Influenza A (PCR) Negative (Negative) 10/01/25 11:11 Influenza Type B (PCR) Negative (Negative) 10/01/25 11:11 RSV (PCR) Negative (Negative) 10/01/25 11:11 SARS-CoV-2 (PCR) Positive (Negative) A 10/01/25 11:11 All radiology interpretation(s) finalized by discharge Discharge Plan Discharge Patient Disposition: Admitted As Inpatient Admit Provider: Soren Garcia Clinical Impression: COVID-19, Acute renal insufficiency, Acute metabolic encephalopathy, Dehydration Condition: Stable Coding Level of Care Code ED Bass Mechanism Maker for Dorian Marie
--- NOTE | 2025-10-01 10:54 | ECG_ITS ---
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 Measurements Intervals [place] Rate: 80 P: 52 UT: 188 QRS: -25 QRSD: 138 T: 58 QT: 403 QTc: 466 Interpretive Statements SINUS RHYTHM BORDERLINE LEFT AXIS DEVIATION [QRS AXIS < -20] RIGHT BUNDLE BRANCH BLOCK [120+ ms QRS DURATION, UPRIGHT V1, 40+ ms S IN I/aVL/V4/V5/V6] Compared to ECG 10/03/2020 15:36:15 No significant changes Electronically Signed On 10-01-2025 19:39:31 PROCESS PLANT OPERATOR by Samuel Newton M.D. [email or web address]
--- NOTE | 2025-10-01 10:54 | XRR_ITS ---
PROCEDURE INFORMATION: Exam: XR Chest Exam date and time: 10/01/2025 11:07 AM Age: 85 years old Clinical indication: Other: Weakness TECHNIQUE: Imaging protocol: Radiologic exam of the chest. Views: 1 view. COMPARISON: CR (CHEST, ) 08/12/2025 6:39 PM FINDINGS: Lungs: Unremarkable. No consolidation or mass. Pleural spaces: Unremarkable. No pleural effusion. No pneumothorax. Heart/Mediastinum: Unremarkable. No cardiomegaly. Bones/joints: Sternal sutures are noted. XR/XR chest 1V portable [id number] IMPRESSION: No acute findings.
[2025-10-01 11:01] LABS: Hematocrit 40.6 % (37-53); Hemoglobin 13.10 g/dL (11.27-16.99); Mean Corpuscular HGB Conc 32.3 g/dL (30-55); Mean Corpuscular Hemoglobin 29.6 pg (27-33); Mean Corpuscular Volume 91.6 fl (82-101); Nucleated Red Blood Cells % 0 %; Platelet Count 219 10^3/cmm (157-399); Red Blood Count 4.43 10^6/uL (3.85-5.65); White Blood Count 7.81 10^3/uL (3.29-11.43)
[2025-10-01 11:17] LABS: Lactic Sepsis W/Reflex 1.5 mmol/L (0.5-2.2)
[2025-10-01 11:25] LABS: Troponin(5th) Baseline 96 ng/L (0-15)
[2025-10-01 11:26] LABS: Alanine Aminotransferase 84 U/L (0-41); Albumin Level 3.8 g/dL (3.5-5.2); Alkaline Phosphatase 293 U/L (40-130); Anion Gap 15.9 (5-19); Aspartate Amino Transferase 62 U/L (0-40); Blood Urea Nitrogen 52 mg/dL (8-23); Calcium 9.2 mg/dL (8.5-10.5); Carbon Dioxide 26 mmol/L (22-29); Chloride 98 mmol/L (98-107); Globulin 2.7 g/dL (1.3-4.6); Glucose 99 mg/dL (65-115); Osmolality Calculated 292 mOsm/kg (285-295); Potassium 5.9 mmol/L (3.5-5.1); Sodium 134 mmol/L (136-145); Total Protein 6.5 g/dL (6.6-8.7)
[2025-10-01] MEDS: linezolid premix 600 MG/300 ML PREMIX 300 MG IV (11:29)
[2025-10-01 11:33] LABS: Procalcitonin 0.11 ng/mL (0-0.5)
[2025-10-01 11:53] LABS: Respiratory Syncytial Virus Ce NEGATIVE (Negative)
[2025-10-01 11:57] LABS: SARS-CoV-2 PCR Positive (Negative)
[2025-10-01 12:02] LABS: Glucose Urine UA Negative (Normal); Nitrate Urine Negative (Negative); Specific Gravity, Urine 1.015 (1.005-1.030)
--- NOTE | 2025-10-01 12:25 | CTR_ITS ---
PROCEDURE INFORMATION: Exam: CT Abdomen And Pelvis Without Contrast Exam date and time: 10/01/2025 12:39 PM Age: 85 years old Clinical indication: Other: Renal failure, R/O obstructive uropathy per hospitalist TECHNIQUE: Imaging protocol: Computed tomography of the abdomen and pelvis without contrast. Radiation optimization: All CT scans at this facility use at least one of these dose optimization techniques: automated exposure control; mA and/or kV adjustment per patient size (includes targeted exams where dose is matched to clinical indication); or iterative reconstruction. COMPARISON: CT bony pelvis [id number] 08/12/2025 6:51 PM RADIATION DOSE METRICS: Total DLP (mGy-cm): 860.19 FINDINGS: Lungs: Lung bases are clear. No pleural effusion. Liver: Normal. No mass. Gallbladder and biliary ducts: Multiple gallstones are noted in the gallbladder but the gallbladder does not appear inflamed and demonstrates normal wall thickness. Pancreas: Normal. No ductal dilation. Spleen: Normal. No splenomegaly. Adrenal glands: Normal. No mass. Kidneys and ureters: The right kidney contains 2 stones measuring up to 6 mm in diameter. A few small cysts are noted. The left kidney contains multiple small cysts along with a 5 mm stone. I see no evidence of ureteral stone or dilatation. Stomach and bowel: Multiple diverticula involve the sigmoid colon. There is no sign of diverticulitis. Appendix: No evidence of appendicitis. Intraperitoneal space: Unremarkable. No free air. No significant fluid collection. Vasculature: Unremarkable. No abdominal aortic aneurysm. Lymph nodes: Unremarkable. No enlarged lymph nodes. Urinary bladder: Unremarkable as visualized. Reproductive: Severe prostate enlargement is noted along with severe bladder distension. Bones/joints: The lumbar spine demonstrates scoliosis with multilevel arthritic changes. Soft tissues: A right inguinal hernia contains fluid and mesenteric fat. CT/CT abdomen pelvis wo con [id number] IMPRESSION: 1. Severe prostate enlargement with bladder distension 2. Bilateral nephrolithiasis with no ureteral stone noted 3. A benign renal cyst or cysts have been detected. No further follow-up imaging is required. 4. Cholelithiasis 5. Sigmoid diverticulosis 6. Small right inguinal hernia COMMENTS: Consistent with the [place] [employer]'s Incidental Findings Committee white paper (J Am Fco Radiol 2018): Any incidental renal lesion less than 1 cm or classified as too small to characterize, or any incidental cystic renal lesion characterized as simple-appearing, is likely benign. No follow-up imaging is recommended for these lesions per consensus recommendations based on imaging criteria.
--- NOTE | 2025-10-01 12:26 | ECG_ITS ---
[facility] Test Date: 2025-10-01 Pat Name: Kenneth Li Department: Room: Gender: Male Therapy Administrative Assistant: : 1940 Requested By: Lucy Lee Order Number: [id number] Gricel MD: Samuel Newton M.D. Measurements Intervals [place] Rate: 84 P: 58 CO: 194 QRS: -37 QRSD: 134 T: 59 QT: 399 QTc: 474 Interpretive Statements SINUS RHYTHM LEFT AXIS DEVIATION [QRS AXIS < -30] RIGHT BUNDLE BRANCH BLOCK [120+ ms QRS DURATION, UPRIGHT V1, 40+ ms S IN I/aVL/V4/V5/V6] Compared to ECG 10/01/2025 11:28:03 No significant changes Electronically Signed On 10-01-2025 20:00:25 TOOL ROOM GEAR MACHINE OPERATOR by Samuel Newton M.D. [email or web address]
--- NOTE | 2025-10-01 12:41 | PM.HP ---
Providers/Chief Complaint Admitting Physician: Dr. Garcia Primary Care Provider: Satya Bright MD Chief Complaint: ams History of Present Illness Kenneth Li is a 85 year old male w/ pmhx of dementia, HTN, hyperlipidemia, hypothyroidism, RBBB, PAD, s/p cabg x3, and depression presents to the ED from [facility] via EMS with c/o progressively worsened AMS from baseline as patient has dementia. Patient was discovered to have UTI, COVID-19, and dehydration. When speaking to primary nurse at [facility] patient was reported to be having associated signs and symptoms of increased weakness, restlessness, dry cough x3 days. Patient was brought in this morning due to a hypotensive episode blood pressure was 80/40s and low-normal pulse oximetry reading of 91% on room air. There is indication of possible exposure to COVID-19 at [facility] due known positive patient cases. Patient to be admitted to hospitalist services for continued medical management and care. While in ED a CBC, CMP, troponin series, and UA was collected, reviewed, as follows: WBC 7.81, Neut 71.6%, Hbg 13.10, Hct 40.6, Plt 219. Na 134, K 5.9, glucose 99. Client Engagement Manager 1.2, BUN 52, Anais Phos 293. Trop baseline 96, 2hr Trop 77.76, Delta Trop -18.24. CRP 41.8. Lactic acid 1.5. UA collected urine WBC 21-50, urine RBC 21-50, urine leukocyte esterase 2+, hyaline cast 8.67. COVID positive. While in ED patient received following medications: 2.5 L NS bolus, meropenem 500 mg IVP, Zyvox 600 mg IV. Review of Systems General: Reports: 10 or more systems reviewed and unremarkable except in HPI and below Medications/Allergies Home Medications ?Medication ?Instructions ?Recorded ?Confirmed ?Last Taken ?Type levothyroxine 25 mcg tablet 25 mcg PO DAILY@0700 10/03/20 10/01/25 10/01/25 History ascorbic acid (vitamin C) 500 mg 500 mg PO DAILY 02/21/22 10/01/25 10/01/25 History tablet aspirin 81 mg tablet,delayed 81 mg PO DAILY 02/21/22 10/01/25 10/01/25 History release (Adult Low Dose Aspirin) folic acid 1 mg tablet 1 mg PO DAILY 02/21/22 10/01/25 10/01/25 History paroxetine HCl 10 mg tablet 10 mg PO DAILY 12/20/22 10/01/25 10/01/25 History right medial ship unloader brace #1 ea 01/21/25 10/01/25 Unknown Rx diclofenac sodium 50 mg 50 mg PO DAILY 08/13/25 10/01/25 10/01/25 History tablet,delayed release famotidine 20 mg tablet 20 mg PO BID 08/13/25 10/01/25 10/01/25 History losartan 25 mg tablet 25 mg PO DAILY 08/13/25 10/01/25 10/01/25 History metoprolol tartrate 25 mg tablet 12.5 mg PO BID 08/13/25 10/01/25 10/01/25 History atorvastatin 20 mg tablet 20 mg PO DAILY@0700 60 days #60 08/17/25 10/01/25 10/01/25 Rx tabs acetaminophen 325 mg tablet 650 mg PO Q7H PRN Pain 10/01/25 10/01/25 09/30/25 History bisacodyl 10 mg rectal suppository 10 mg WV DAILY PRN Constipation 10/01/25 10/01/25 Unknown History hydrocodone 5 mg-acetaminophen 325 1 tab PO Q7H PRN Pain 10/01/25 10/01/25 09/28/25 History mg tablet magnesium hydroxide 400 mg/5 mL 30 ml PO DAILY PRN Constipation 10/01/25 10/01/25 08/29/25 History oral suspension (Milk of Magnesia) multivitamin 1 tab PO QAM 10/01/25 10/01/25 10/01/25 History polyethylene glycol 3350 17 17 g PO DAILY constipation 10/01/25 10/01/25 10/01/25 History gram/dose oral powder (Miralax) sodium phosphates 19 gram-7 118 ml WV Q8H PRN Constipation 10/01/25 10/01/25 08/19/25 History gram/118 mL enema (Fleet Enema) tamsulosin 0.4 mg capsule 0.4 mg PO BEDTIME 10/01/25 10/01/25 09/30/25 History Allergies Allergy/AdvReac Type Severity Reaction Status Date / Time No Known Allergies Allergy Verified 10/01/25 10:53 PFSH Acute PFSH: Medical History (Updated 10/01/25 @ 17:37 by Brunilda Smith NP) RBBB Depression Hypertension Hyperlipidemia Hypothyroidism Surgical History S/P CABG x 3 Social History Smoking and tobacco/nicotine status: former use of tobacco/nicotine Alcohol intake: never Vitals/I&O/Wt Last Vital Signs Temp 97.6 F 10/01/25 10:48 Pulse 84 10/01/25 12:00 Resp 18 10/01/25 10:48 BP 105/54 10/01/25 12:00 Pulse Ox 99 10/01/25 12:00 O2 Del Method Room Air 10/01/25 12:00 09/30/25 10/01/25 10/01/25 22:59 06:59 14:59 Intake Total 0 / 0 Balance 0 / 0 Weight last 48 hrs Weight 78.063 kg Physical Exam Narrative: General: A&Ox1, resting in bed on room air, no apparent distress HEENT: Normo-cephalic, atraumatic, grossly unremarkable exam Cardio: NSR, normal S1-S2 without any murmurs, rubs, or gallops and JVD normal Respiratory: Diminished to bilateral upper and lower lobes breathing on auscultation w/o any wheezes, stridor, rhonchi GI: Abd soft, non-tender, non-distended, normo-active bowel sounds present Neuro: Moves all extremities, no sensory deficits, Normal speech Behavior: Appropriate and cooperative Extremities: Adequate palpable pulses. No clubbing, cyanosis or edema, Full ROM Quick SOFA Score: Respiratory Rate: 18 Blood Pressure: 105/70 [place] Coma Scale: 11 qSOFA Score: 1 If qSOFA score 2 or greater, continue: Blood Pressure Mean: 71 Bilirubin (mg/dl): 0.5 Platelets (x10?/ml): 219 Creatinine (mg/dl): 1.2 Evaluation: Current stage of sepsis: ruled out/differential diagnosis Sepsis stage criteria used: Sepsis-3 Focused Exam: Vital signs: Temp Pulse Resp BP Pulse Ox O2 Del Method 10/01/25 12:00 84 105/54 99 Room Air 10/01/25 11:53 87 94/33 100 Room Air 10/01/25 10:48 97.6 F 75 18 88/65 96 Room Air Date exam was performed: 10/01/25 Time exam was performed: 17:29 Sepsis Screen No Definite Risk Today, 12:00 Respiratory Rate, (12 - 18) 18 breaths/min Today, 10:48 Blood Pressure 105/70 mmHg Today, 13:56 [place] Coma Scale Score 11 Today, 15:05 Quick SOFA Score 0 Today, 15:06 SOFA Score: [place] Coma Scale Score 11 Today, 15:05 Blood Pressure Mean 71 mmHg Today, 12:00 Total Bilirubin, (0.15-1.2) 0.5 mg/dL Today, 10:55 Platelet Count, (157-399) 219 10^3/cmm Today, 10:55 Creatinine, (0.7-1.2) 1.2 mg/dL Today, 10:55 Data 10/01/25 10:55 10/01/25 10:55 Other Labs: 10/01: Abd/Pelvis CT: Reviewed and results as follows: Severe prostate enlargement with bladder distension. Bilateral nephrolithiasis with no ureteral stone noted. A benign renal cyst or cysts have been detected. No further follow-up imaging is required. Cholelithiasis. Sigmoid diverticulosis. Small right inguinal hernia 10/01: CXR: Resulted and reviewed as follows: No acute findings. Micro: Microbiology 10/01/25 11:10 Blood Culture - Preliminary Blood SPECIMEN COLLECTED 10/01/25 11:00 Blood Culture - Preliminary Blood SPECIMEN COLLECTED A&P Assessment and plan 1. Acute metabolic encephalopathy: 2. Acute cystitis without hematuria: 3. COVID-19: 4. Transaminitis: 5. Dehydration: 6. Hypothyroidism: 7. Hyperlipidemia: 8. Hypertension: Plan: Uncomplicated UTI - UA reviewed: urine WBC 21-50, urine RBC 21-50, urine leukocyte esterase 2+, hyaline cast 8.67. - Urine culture pending - IVF NS at 75ml/hr, Encourage oral hydration - Bladder scans as needed - IV abx Rocephin 1000 mg IVP dly - Monitor temperature, pain, urine output - CBC, CMP, Mag daily Acute metabolic encephalopathy - Progressively worsened AMS from baseline as patient has dementia - May be secondary to UTI, dehydration - CBC unremarkable, K 5.9, Na 134. UA postivite for UTI. - Fall precautions, 1:1 sitter ordered. COVID-19 - On room air - Remdesivir loading dose 200mg IV, then continuation of 100 mg IV dly - Acetaminophen 650 mg p.o. Q6h for fever - Benzonatate 100mg PO TID PRN for cough Hyperkalemia - K 5.9 - Continue IVF NS at 75ml/hr - Continuous cardiac monitoring Dehydration - Received 2.5L NS bolus in ED - Na 134, hyaline cast present on urinalysis - IVF NS at 75ml/hr Transaminitis - AST 62, ALT 84, bilirubin 0.5 - May be secondary to dehydration - CMP daily Hypothyroidism -TSH ordered, pending -Continue home medication levothyroxine 25 mcg PO dly Hypertension - V/S Q4hr -Hold home antihypertensive medications: losartan 25mg PO dly, metoprolol 12.5mg BID- BP soft Hyperlipidemia - Lipid panel ordered for a.m., pending. -Continue home medication atorvastatin 20 mg PO dly GERD -Continue home medications famotidine 20 mg tablet PO dly BPH - Continue tamsulosin 0.4 mg PO dly Depression - Continue home medication paroxetine HCI 10mg PO dly CODE STATUS: VTE prophylaxis: Lovenox 30 mg sub q PDMP PDMP Reviewed: Not Reviewed Attestations Medical Necessity Statement*: Admitted under inpatient status. Given complexity of patient's presentation, COVID positive, UTI, acute metabolic encephalopathy, co-morbid conditions, and required intensity of treatment, a hospitalization exceeding two midnights is anticipated. and High Time for a total of 78 minutes, includes reviewing past or interval history, examining/interviewing patient, placing orders, counseling patient/family/other support, updating patient/family/other support, discussing plan of care with staff, communicating with other healthcare providers, documenting encounter and coordinating care Diagnoses Transaminitis R74.01 Acute metabolic encephalopathy G93.41 Acute cystitis without hematuria N30.00 Urinary tract infection type: acute cystitis Hematuria presence: without hematuria COVID-19 U07.1 Dehydration E86.0 Hypothyroidism E03.9 Hyperlipidemia E78.5 Hypertension I10 Acute cystitis without hematuria N30.00 Urinary tract infection type: acute cystitis Hematuria presence: without hematuria
[2025-10-01 17:27] LABS: Troponin 5 6HR 79.21 ng/L (0-15)
[2025-10-01] MEDS: cefTRIAXone 1,000 mg SDV 1000 MG IVP (17:50)
--- NOTE | 2025-10-01 17:52 | ECG_ITS ---
[facility] 2025[facility]01 Pat Name: Kenneth Li Department: Room: 266 Gender: Male Prenatal Nurse: : 1940 Requested By: Lucy Lee Order Number: [id number] Victoria Monsalve MD: Samuel Newton M.D. Measurements Intervals [place] Rate: 87 P: 61 IN: 180 QRS: -43 QRSD: 134 T: 67 QT: 390 QTc: 471 Interpretive Statements SINUS RHYTHM LEFT AXIS DEVIATION [QRS AXIS < -30] RIGHT BUNDLE BRANCH BLOCK [120+ ms QRS DURATION, UPRIGHT V1, 40+ ms S IN I/aVL/V4/V5/V6] Compared to ECG 10/01/2025 12:26:53 NO SIGNIFICANT CHANGE Electronically Signed On 10-01-2025 19:55:03 RECHECKER by Samuel Newton M.D. [email or web address]
[2025-10-01 18:28] LABS: Thyroid Stimulating Hormone 2.43 uIU/mL (0.27-4.20)
[2025-10-01] MEDS: remdesivir 200 MG in sodium chloride 0.9% (100 ml) 60 ML 100 MG IV (22:01)
[2025-10-02] VITALS (8 sets, daily range): BP systolic 101–124; BP diastolic 56–76; PULSE 60–92; RESP 15–18; TEMP 36.7–37; O2SAT 92–97
[2025-10-02 04:20] LABS: Hematocrit 35.3 % (37-53); Hemoglobin 11.20 g/dL (11.27-16.99); Mean Corpuscular HGB Conc 31.7 g/dL (30-55); Mean Corpuscular Hemoglobin 29.7 pg (27-33); Mean Corpuscular Volume 93.6 fl (82-101); Nucleated Red Blood Cells % 0 %; Platelet Count 202 10^3/cmm (157-399); Red Blood Count 3.77 10^6/uL (3.85-5.65); White Blood Count 5.54 10^3/uL (3.29-11.43)
[2025-10-02 04:42] LABS: Cholesterol 107 mg/dL (0-200); HDL Cholesterol 28 mg/dL (60-100); Triglycerides 99 mg/dL (0-150)
[2025-10-02 04:45] LABS: Alanine Aminotransferase 61 U/L (0-41); Albumin Level 3.2 g/dL (3.5-5.2); Alkaline Phosphatase 225 U/L (40-130); Anion Gap 16.0 (5-19); Aspartate Amino Transferase 50 U/L (0-40); Blood Urea Nitrogen 31 mg/dL (8-23); Calcium 8.5 mg/dL (8.5-10.5); Carbon Dioxide 23 mmol/L (22-29); Chloride 108 mmol/L (98-107); Globulin 2.1 g/dL (1.3-4.6); Glucose 83 mg/dL (65-115); Magnesium 1.7 mg/dL (1.7-2.3); Osmolality Calculated 300 mOsm/kg (285-295); Potassium 5.0 mmol/L (3.5-5.1); Sodium 142 mmol/L (136-145); Total Protein 5.3 g/dL (6.6-8.7)
[2025-10-02] MEDS: ATORVASTATIN 20 MG TABLET PO (04:47)
--- NOTE | 2025-10-02 15:32 | P.PN_ITS ---
Subjective 2 Subjective: Patient resting comfortably. No complaints Vitals/I&O/Wt Last Vital Signs Temp 98.4 F 10/02/25 11:25 Pulse 89 10/02/25 11:25 Resp 18 10/02/25 11:25 BP 108/59 10/02/25 11:25 Pulse Ox 92 10/02/25 11:25 O2 Del Method Room Air 10/02/25 11:25 10/02/25 10/02/25 10/02/25 06:59 14:59 22:59 Intake Total 220 / 3140 1000 / 1000 Balance 220 / 3140 1000 / 1000 Weight last 48 hrs Weight 80.371 kg Weight 77.746 kg Weight 78.063 kg Physical Exam 2 Narrative: General: A&Ox1, resting in bed on room air, no apparent distress HEENT: Normo-cephalic, atraumatic, grossly unremarkable exam Cardio: NSR, normal S1-S2 without any murmurs, rubs, or gallops and JVD normal Respiratory: Diminished to bilateral upper and lower lobes breathing on auscultation GI: Abd soft, non-tender, non tender Neuro: Moves all extremities, no sensory deficits, Normal speech Behavior: Appropriate and cooperative Extremities: Adequate palpable pulses. No clubbing, cyanosis or edema Data 10/02/25 03:36 10/02/25 03:36 Micro: Microbiology 10/01/25 11:10 Blood Culture - Preliminary Blood NEGATIVE TO DATE 10/01/25 11:00 Blood Culture - Preliminary Blood NEGATIVE TO DATE CT Abd/Pel: Radiologist's impression: 10/01: Abd/Pelvis CT: Reviewed and results as follows: Severe prostate enlargement with bladder distension. Bilateral nephrolithiasis with no ureteral stone noted. A benign renal cyst or cysts have been detected. No further follow- up imaging is required. Cholelithiasis. Sigmoid diverticulosis. Small right inguinal hernia 10/01: CXR: Resulted and reviewed as follows: No acute findings. A&P Assessment and plan 1. Acute metabolic encephalopathy: Likely multifactorial in current setting of infection, covid and has baseline dementia UA reveals infection Monitor Supportive care 2. Acute cystitis without hematuria: UA reviewed: urine WBC 21-50, urine RBC 21-50, urine leukocyte esterase 2+, hyaline cast 8.67. - Urine culture obtained- follow - On rocephin- continue - Monitor temperature, pain, urine output - CBC, CMP, Mag daily 3. COVID-19: - On room air -Received remdesivir loading dose 200mg IV, then continuation of 100 mg IV dly - Acetaminophen 650 mg p.o. Q6h for fever - Benzonatate 100mg PO TID PRN for cough 4. Hyperkalemia: Potassium 5.9 on arrival. Resolved with hydration. Losartan held Continue to monitor 5. Transaminitis: AST 62, ALT 84, bilirubin 0.5 - May be secondary to dehydration - CMP daily 6. Dehydration: received IVF. Improved 7. Hypothyroidism: resumed levothyroxine 8. Hyperlipidemia: Continue home medication atorvastatin 20 mg PO dly 9. Hypertension: resume home meds of metoprolol Losartan on hold Monitor Plan: DVT prophylaxis- lovenox Code status- Full Discussed with care team members PDMP PDMP Reviewed: Not Reviewed Attestations 2 Medical Necessity Statement*: Patient requires continued hospitalization in the setting of acute cystitis, dehydration, and covid infection as well as acute metabolic encephalopathy and care is expected to cross 2 midnights Coding Level of Care Code 43079 Diagnoses Acute metabolic encephalopathy G93.41 Acute cystitis without hematuria N30.00 Urinary tract infection type: acute cystitis Hematuria presence: without hematuria COVID-19 U07.1 Hyperkalemia E87.5 Transaminitis R74.01 Dehydration E86.0 Hypothyroidism E03.9 Hyperlipidemia E78.5 Hypertension I10
[2025-10-02] MEDS: cefTRIAXone 1,000 mg SDV 1000 MG IVP (17:32)
[2025-10-02] MEDS: remdesivir 100 MG in sodium chloride 0.9% (100 ml) 80 ML IV (18:06)
[2025-10-02] MEDS: oxyCODONE 5 mg IR Tab/Cap PO (22:22)
[2025-10-03] VITALS (8 sets, daily range): BP systolic 94–147; BP diastolic 51–70; PULSE 69–80; RESP 15–18; TEMP 36.4–36.7; O2SAT 91–97
[2025-10-03] MEDS: oxyCODONE 5 mg IR Tab/Cap PO ×2 (05:31→21:49)
[2025-10-03] MEDS: ATORVASTATIN 20 MG TABLET PO (05:33)
[2025-10-03 06:04] LABS: Hematocrit 37.0 % (37-53); Hemoglobin 11.70 g/dL (11.27-16.99); Mean Corpuscular HGB Conc 31.6 g/dL (30-55); Mean Corpuscular Hemoglobin 29.5 pg (27-33); Mean Corpuscular Volume 93.2 fl (82-101); Nucleated Red Blood Cells % 0 %; Platelet Count 190 10^3/cmm (157-399); Red Blood Count 3.97 10^6/uL (3.85-5.65); White Blood Count 5.38 10^3/uL (3.29-11.43)
[2025-10-03 06:14] LABS: Alanine Aminotransferase 52 U/L (0-41); Albumin Level 2.9 g/dL (3.5-5.2); Alkaline Phosphatase 205 U/L (40-130); Anion Gap 13.5 (5-19); Aspartate Amino Transferase 45 U/L (0-40); Blood Urea Nitrogen 21 mg/dL (8-23); Calcium 8.4 mg/dL (8.5-10.5); Carbon Dioxide 23 mmol/L (22-29); Chloride 107 mmol/L (98-107); Globulin 2.7 g/dL (1.3-4.6); Glucose 88 mg/dL (65-115); Magnesium 1.5 mg/dL (1.7-2.3); Osmolality Calculated 290 mOsm/kg (285-295); Potassium 4.5 mmol/L (3.5-5.1); Sodium 139 mmol/L (136-145); Total Protein 5.6 g/dL (6.6-8.7)
--- NOTE | 2025-10-03 08:46 | PC.CHAP ---
Pastoral Care Encounter/Spiritual Assessment Type of Contact [] Declined dehydration plant operator visit [] Patient/Family/Request visit [] Outpatient visit [] Follow-up visit [] Physician referral [] Code/Alert [x] Routine visit [] Staff referral [] Actively dying [] Patient sleeping [] Family support [] [] Out of room [] Palliative care [] [] Receiving care in room [] Pre-surgical visit [] Trauma [] Long length of stay [] ICU visit [] Other: Relational/Emotional Strength [] Patient feels connected with others/family/visitors/staff [] Distress [] Loneliness/isolation [] Abandonment Spirituality of Patient [] Person of Charlene [] Attends Yazidism of their Charlene [] Believes in Prayer [] Reads Bible or Taoism materials [] There are Spiritual issues to be addressed [employer] Cake Decorator Interventions [] Prayer [] Active listening [] Non-anxious presence [] Spiritual/emotional support [] Crisis/trauma care [] Spiritual counseling [] Bereavement support [] Provided bereavement packet [] Provided Bible/devotional materials [] Provided toy/stuffed animal, coloring book to patient or family member [] Provided Communion [] Anointing/[place] [] Salvation [] Completed spiritual assessment [] Other: Impact on Illness or Injury [] Angry [] Fearful [] Anxious [] Often cries [] Exhaustion [] Unable to work [] Unable to attend episcopalian [] Unable to walk/stand [] Unable to read [] Unable to drive [] Unable to eat/drink [] Unable to sleep [] Unable to be with family [] Patient intubated [] Other: Summary precaution Time spent with patient
[2025-10-03] MEDS: magnesium sulfate premix 2 GM/50 ML PIGGYBACK IV (10:10)
--- NOTE | 2025-10-03 10:36 | PC.SOCIAL ---
IMM Update pg 2 of IMM updated and reviewed w/ patient. Copy provided and copy dated, intialed and placed in chart.
[2025-10-03] MEDS: cefTRIAXone 1,000 mg SDV 1000 MG IVP (17:53)
[2025-10-03] MEDS: remdesivir 100 MG in sodium chloride 0.9% (100 ml) 80 ML IV (17:54)
--- NOTE | 2025-10-03 22:04 | P.PN_ITS ---
Subjective 2 Subjective: Patient resting comfortably. No complaints he is alert, oriented to place person but not to time seems cooperative and pleaseant looking Vitals/I&O/Wt Last Vital Signs Temp 97.5 F L 10/03/25 20:00 Pulse 74 10/03/25 20:00 Resp 16 10/03/25 21:49 BP 116/51 10/03/25 20:00 Pulse Ox 97 10/03/25 20:00 O2 Del Method Room Air 10/03/25 20:00 10/03/25 10/03/25 10/03/25 06:59 14:59 22:59 Intake Total 240 / 2310 1250 / 1250 891.25 / 2141.25 Output Total 500 / 950 950 / 950 Balance -260 / 1360 1250 / 1250 -58.75 / 1191.25 Weight last 48 hrs Weight 80.286 kg Weight 80.371 kg Physical Exam 2 Narrative: General: Alert and oriented to place and person, lying comfortably without any distress HEENT: Normocephalic, atraumatic, grossly unremarkable exam Cardio: normal rate rhythm, normal S1-S2 without any murmurs. Respiratory: normal vascular breathing on auscultation without any wheezes, stridor, rhonchi GI: Abdomen soft, nontender, nondistended, normoactive bowel sounds present all 4 quadrants, Neuro: intact cranial nerves motor and sensory and cerebellar/coordination function without any focal neurological deficit Behavior: Appropriate and cooperative Extremities: Adequate palpable pulses, mild trace edema Urinary Catheter Management: [place]: Cath Placed During This Visit: yes Reason for Continuing Indwelling Catheter: Other Urinary Catheter Date of Insertion: 10/02/25 Urinary Catheter Time of Insertion: 22:27 Data 10/03/25 05:37 10/03/25 05:37 Micro: Microbiology 10/01/25 11:55 Urine Culture - Final Urine,Clean Catch Enterococcus faecalis 10/01/25 11:10 Blood Culture - Preliminary Blood Staphylococcus species A&P Assessment and plan 1. Acute metabolic encephalopathy: Likely multifactorial in current setting of infection, covid and has baseline dementia UA reveals infection and currently on ceftriaxone 1gm daily, pt urine cultures showed E fecalis and sensitivity reviewed Monitor Supportive care 2. Acute cystitis without hematuria: Urine cultures showed E fecalis and sensitivity reviewed cont ceft 1gm daily monitor for hemodynamics I/O monitoring 3. COVID-19: - On room air and no symptoms at the moment -Received remdesivir loading dose 200mg IV, then continuation of 100 mg IV dly - Acetaminophen 650 mg p.o. Q6h for fever - Benzonatate 100mg PO TID PRN for cough 4. Hyperkalemia: Potassium 5.9 on arrival. Resolved with hydration. Losartan held Continue to monitor 5. Transaminitis: likely covid related, currently improving cont to monitor 6. Dehydration: received IVF. Improved encourage oral intake 7. Hypothyroidism: resumed levothyroxine home dose 8. Hyperlipidemia: Continue home medication atorvastatin 20 mg PO dly 9. Hypertension: resume home meds of metoprolol 12.5mg bid Losartan on hold Monitor Plan: DVT prophylaxis- lovenox Code status- Full patient awaiting for better cooperative behavior without 1:1 for disposition back to [place] PDMP PDMP Reviewed: Not Reviewed Attestations 2 Medical Necessity Statement*: Patient will stay over night for further observation of his altered mentation and management of COVID Time Spent in Patient Care: 16 - 35 minutes (>than 50% of time sp ent in counselling and/or direct pt care on unit) . Other Attestations: no one around from the family or next of kiin or any health care proxy to discuss the patient clinical condition. his condtion has been explained to him however there is questionable capacity of the patient. all the management done in the best interest of the patient according to the recommendations/guidelines and based on the current clinical condition. risks and benefits were measured and management provided. I have personally reviewed the pts labs, diagnositics, EKGs and chart. the transplant case manager of the note has been typed and transcribed, in case of any errors to discuss with the author of the report. Coding Level of Care Code Acute Code for Chg Fwd Diagnoses Acute metabolic encephalopathy G93.41 Acute cystitis without hematuria N30.00 Hematuria presence: without hematuria Urinary tract infection type: acute cystitis COVID-19 U07.1 Hyperkalemia E87.5 Transaminitis R74.01 Dehydration E86.0 Hypothyroidism E03.9 Hyperlipidemia E78.5 Hypertension I10
--- NOTE | 2025-10-03 23:38 | PC.NURSE ---
patient refused per dayshift report and confirmed with patient
[2025-10-04] VITALS (7 sets, daily range): BP systolic 95–135; BP diastolic 48–74; PULSE 73–108; RESP 16–20; TEMP 36.4–36.8; O2SAT 91–95
[2025-10-04] MEDS: ATORVASTATIN 20 MG TABLET PO (04:33)
[2025-10-04 06:27] LABS: Hematocrit 35.4 % (37-53); Hemoglobin 11.60 g/dL (11.27-16.99); Mean Corpuscular HGB Conc 32.8 g/dL (30-55); Mean Corpuscular Hemoglobin 30.0 pg (27-33); Mean Corpuscular Volume 91.5 fl (82-101); Nucleated Red Blood Cells % 0 %; Platelet Count 203 10^3/cmm (157-399); Red Blood Count 3.87 10^6/uL (3.85-5.65); White Blood Count 7.10 10^3/uL (3.29-11.43)
[2025-10-04 06:48] LABS: Alanine Aminotransferase 44 U/L (0-41); Albumin Level 3.0 g/dL (3.5-5.2); Alkaline Phosphatase 203 U/L (40-130); Anion Gap 15.1 (5-19); Aspartate Amino Transferase 36 U/L (0-40); Blood Urea Nitrogen 18 mg/dL (8-23); Calcium 8.4 mg/dL (8.5-10.5); Carbon Dioxide 22 mmol/L (22-29); Chloride 106 mmol/L (98-107); Globulin 2.4 g/dL (1.3-4.6); Glucose 83 mg/dL (65-115); Osmolality Calculated 289 mOsm/kg (285-295); Potassium 4.1 mmol/L (3.5-5.1); Sodium 139 mmol/L (136-145); Total Protein 5.4 g/dL (6.6-8.7)
[2025-10-04 06:51] LABS: Magnesium 1.6 mg/dL (1.7-2.3)
[2025-10-04] MEDS: haloperidol inj 5 mg/mL INJ 1 mL 1 MG IM ×2 (12:14→22:14)
[2025-10-04] MEDS: oxyCODONE 5 mg IR Tab/Cap PO ×2 (12:23→18:04)
--- NOTE | 2025-10-04 17:48 | P.PN_ITS ---
Subjective 2 Subjective: Patient was seen in the morning, he was trying to get out of his bed since he does not feel to stay in the bed. He is very calm and cooperative when spoke and interacted to him. He understands and follows the commands. Seems the patient is staying by himself in the room alone and that affects his mentation on the top he also has dementia therefore it seems to worsen when no one is around and he is unfamiliar with the place. Emphasis on reorientation is advised to make the patient calm Vitals/I&O/Wt Last Vital Signs Temp 98.3 F 10/04/25 16:00 Pulse 108 H 10/04/25 16:00 Resp 18 10/04/25 16:00 BP 134/60 10/04/25 16:00 Pulse Ox 94 10/04/25 16:00 O2 Del Method Room Air 10/04/25 16:00 10/04/25 10/04/25 10/04/25 06:59 14:59 22:59 Intake Total 1000 / 1000 Output Total 300 / 1250 Balance -300 / 891.25 1000 / 1000 Weight last 48 hrs Weight 78.16 kg Weight 80.286 kg Physical Exam 2 Narrative: General: Alert and oriented to place and person, lying comfortably without any distress HEENT: Normocephalic, atraumatic, grossly unremarkable exam Cardio: normal rate rhythm, normal S1-S2 without any murmurs. Respiratory: normal vascular breathing on auscultation without any wheezes, stridor, rhonchi GI: Abdomen soft, nontender, nondistended, normoactive bowel sounds present all 4 quadrants, Neuro: intact cranial nerves motor and sensory and cerebellar/coordination function without any focal neurological deficit Behavior: Appropriate and cooperative Extremities: Adequate palpable pulses, mild trace edema Urinary Catheter Management: Wheatley: Cath Placed During This Visit: yes Reason for Continuing Indwelling Catheter: Other Urinary Catheter Date of Insertion: 10/02/25 Urinary Catheter Time of Insertion: 22:27 Data 10/04/25 06:18 10/04/25 06:18 Micro: Microbiology 10/01/25 11:55 Urine Culture - Final Urine,Clean Catch Enterococcus faecalis A&P Assessment and plan 1. Delirium due to another medical condition: Patient having delirium in the setting of possible COVID and UTI Furthermore the patient is also in a different facility and due to isolation was in a separate room which can trigger his delirium. Emphasis on reorientation has been provided to the nurses as well since the patient is understanding when interacted and follows the command appropriately. Fall precautions Consider Wheatley removal and to give a voiding trial since the patient is also having discomfort due to Wheatley's catheter Of note: I took care of him in the last admission and discharged him, he still remembers bit of conversation with me from the last encounter. 2. Acute metabolic encephalopathy: Likely multifactorial in current setting of infection, covid and has baseline dementia UA reveals infection and currently on ceftriaxone 1gm daily, pt urine cultures showed E fecalis and sensitivity reviewed Monitor Supportive care 3. Acute cystitis without hematuria: Urine cultures showed E fecalis and sensitivity reviewed cont ceft 1gm daily monitor for hemodynamics I/O monitoring 4. COVID-19: - On room air and no symptoms at the moment -Received remdesivir loading dose 200mg IV, then continuation of 100 mg IV dly - Acetaminophen 650 mg p.o. Q6h for fever - Benzonatate 100mg PO TID PRN for cough -Since the patient is asymptomatic COVID therefore to consider discontinuing isolation 5. Hyperkalemia: Potassium 5.9 on arrival. Resolved with hydration. Losartan held Continue to monitor 6. Transaminitis: likely covid related, currently improving. 7. Dehydration: received IVF. Improved encourage oral intake 8. Hypothyroidism: resumed levothyroxine home dose 9. Hyperlipidemia: Continue home medication atorvastatin 20 mg PO dly 10. Hypertension: resume home meds of metoprolol 12.5mg bid Losartan on hold Monitor 11. Hypomagnesemia: Plan: DVT prophylaxis- lovenox Code status- Full patient awaiting for better cooperative behavior without 1:1 for disposition back to [place] PDMP PDMP Reviewed: Not Reviewed Attestations 2 Medical Necessity Statement*: Patient would like to stay over midnight to manage his intermittent delirium before sending him to [facility] without needing one-to-one observation which he he is requiring to avoid fall Coding Level of Care Code Acute Code for Chg Fwd Diagnoses Delirium due to another medical condition F05 Acute metabolic encephalopathy G93.41 Acute cystitis without hematuria N30.00 Urinary tract infection type: acute cystitis Hematuria presence: without hematuria COVID-19 U07.1 Hyperkalemia E87.5 Transaminitis R74.01 Dehydration E86.0 Hypothyroidism E03.9 Hyperlipidemia E78.5 Hypertension I10 Hypomagnesemia E83.42
[2025-10-04] MEDS: cefTRIAXone 1,000 mg SDV 1000 MG IVP (18:03)
[2025-10-04] MEDS: remdesivir 100 MG in sodium chloride 0.9% (100 ml) 80 ML IV (18:04)
[2025-10-05] VITALS: BP 124/57; PULSE 94; RESP 17; TEMP 36.4; O2SAT 95
[2025-10-05 00:11] VITALS: RESP 16
[2025-10-05] MEDS: oxyCODONE 5 mg IR Tab/Cap PO (00:11)
[2025-10-05 04:00] VITALS: BP 128/68; PULSE 88; RESP 17; TEMP 37.1; O2SAT 94
[2025-10-05] MEDS: ATORVASTATIN 20 MG TABLET PO (05:31)
[2025-10-05 06:30] LABS: Magnesium 1.5 mg/dL (1.7-2.3)
[2025-10-05 06:37] LABS: Anion Gap 19.2 (5-19); Blood Urea Nitrogen 15 mg/dL (8-23); Calcium 9.0 mg/dL (8.5-10.5); Carbon Dioxide 20 mmol/L (22-29); Chloride 103 mmol/L (98-107); Glucose 89 mg/dL (65-115); Osmolality Calculated 286 mOsm/kg (285-295); Potassium 4.2 mmol/L (3.5-5.1); Sodium 138 mmol/L (136-145)
[2025-10-05 07:29] VITALS: BP 136/65; PULSE 74; RESP 16; TEMP 37.1; O2SAT 93
[2025-10-05 11:41] VITALS: BP 131/71; PULSE 90; RESP 17; TEMP 36.9; O2SAT 92
[2025-10-05] MEDS: magnesium sulfate premix 4 GM/100 ML PREMIX IV (12:36)
[2025-10-05 15:00] VITALS: BP 133/67; PULSE 84; RESP 17; TEMP 36.8; O2SAT 94
--- NOTE | 2025-10-05 15:25 | PC.SOCIAL ---
IMM Update pg 2 of IMM updated and reviewed w/ patients son. Copy provided and copy dated, initialed and placed in chart.
--- NOTE | 2025-10-05 19:17 | P.DS_ITS ---
Discharge Providers Date of Admission: 10/01/25 12:33 Date of Discharge: October 05, 2025 Attending Provider at Admission: Soren Garcia Attending Provider at Discharge: Jackie Martin MD Primary Care Provider: Satya Bright MD Diagnoses at Discharge Discharge Diagnosis 1. Delirium due to another medical condition: 2. Acute metabolic encephalopathy: 3. Acute cystitis without hematuria: 4. COVID-19: 5. Hyperkalemia: 6. Transaminitis: 7. Dehydration: 8. Hypothyroidism: 9. Hyperlipidemia: 10. Hypertension: 11. Hypomagnesemia: Reason for Visit Reason for Visit: ams Brief History: As per the previous notes and the admitting physician: Kenneth Li is a 85 year old male w/ pmhx of dementia, HTN, hyperlipidemia, hypothyroidism, RBBB, PAD, s/p cabg x3, and depression presents to the ED from [facility] [place]note 2[place] via EMS with c/o progressively worsened AMS from baseline as patient has dementia. Patient was discovered to have UTI, COVID-19, and dehydration. When speaking to primary nurse at [facility] patient was reported to be having associated signs and symptoms of increased weakness, restlessness, dry cough x3 days. Patient was brought in this morning due to a hypotensive episode blood pressure was 80/40s and low-normal pulse oximetry reading of 91% on room air. There is indication of possible exposure to COVID- 19 at [facility] due known positive patient cases. Patient to be admitted to hospitalist services for continued medical management and care. While in ED a CBC, CMP, troponin series, and UA was collected, reviewed, as follows: WBC 7.81, Neut 71.6%, Hbg 13.10, Hct 40.6, Plt 219. Na 134, K 5.9, glucose 99. Surveyor Chain Helper 1.2, BUN 52, Anais Phos 293. Trop baseline 96, 2hr Trop 77.76, Delta Trop -18.24. CRP 41.8. Lactic acid 1.5. UA collected urine WBC 21-50, urine RBC 21-50, urine leukocyte esterase 2+, hyaline cast 8.67. COVID positive. While in ED patient received following medications: 2.5 L NS bolus, meropenem 500 mg IVP, Zyvox 600 mg IV. Hospital Course Hospital Course And admitted as a case of COVID and also found to have UTI. He was started on adequate antibiotics and COVID-19 treatment as per protocol. He was started on remdesivir and ceftriaxone. His hospital course remained stable apart from mild agitation secondary to Wheatley catheter. The patient had on and off acute delirium episode which required Haldol and later on after removal of the Wheatley's catheter the patient was able to pass urine and was stable. He was kept on one-to-one observation and after stabilization with reorientation close monitoring and management of his underlying infectious process the patient delirium was stable. He was discharged on Paxlovid to complete the total 5 days course of COVID-19 infection and levofloxacin for UTI. Medications were reconciled after confirmation and according to patient comorbidities and appropriate follow-ups and referrals were provided at the time of discharge. Patient condition has been discussed at length with the patient/family, I have independently reviewed the chart labs imaging/diagnostics/EKG. the goals of care and code status with the patient/family/NOK/legal food products sales representative, and documented accordingly. The management has been done according to the current clinical condition with respect to patient goals of care and based on recommendations/guidelines. The patient/family has been informed about the current condition and further plan of care. Agreed with the plan of care and understood without any language barrier. 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 Any obvious errors or omissions should be clarified with the author of the document. Physical Exam Narrative: General: Alert and oriented to place and person, lying comfortably without any distress HEENT: Normocephalic, atraumatic, grossly unremarkable exam Cardio: normal rate rhythm, normal S1-S2 without any murmurs. Respiratory: normal vascular breathing on auscultation without any wheezes, stridor, rhonchi GI: Abdomen soft, nontender, nondistended, normoactive bowel sounds present all 4 quadrants, Neuro: intact cranial nerves motor and sensory and cerebellar/coordination function without any focal neurological deficit Behavior: Appropriate and cooperative Extremities: Adequate palpable pulses, mild trace edema Urinary Catheter Management: Wheatley: Cath Placed During This Visit: yes Reason for Continuing Indwelling Catheter: Other Urinary Catheter Date of Insertion: 10/02/25 Urinary Catheter Time of Insertion: 22:27 Discharge Data Studies Completed and Pending Completed Studies During Hospitalization Category Date Time Status CT abdomen pelvis [facility] [id number] Stat Cat Scan 10/01/25 12:25 Completed XR chest 1V portable [id number] Stat Exams 10/01/25 10:54 Completed Pending at discharge Category Date Time Status Blood Culture Stat Lab 10/01/25 11:00 Results Radiology Impressions Chest X-Ray 10/01/25 10:54 IMPRESSION: No acute findings. Abdomen/Pelvis CT 10/01/25 12:25 IMPRESSION: 1. Severe prostate enlargement with bladder distension 2. Bilateral nephrolithiasis with no ureteral stone noted 3. A benign renal cyst or cysts have been detected. No further follow-up imaging is required. 4. Cholelithiasis 5. Sigmoid diverticulosis 6. Small right inguinal hernia COMMENTS: Consistent with the [employer] [employer]'s Incidental Findings Committee white paper (J Am Fco Radiol 2018): Any incidental renal lesion less than 1 cm or classified as too small to characterize, or any incidental cystic renal lesion characterized as simple-appearing, is likely benign. No follow-up imaging is recommended for these lesions per consensus recommendations based on imaging criteria. Laboratory Results WBC 7.10 10^3/uL (3.29-11.43) 10/04/25 06:18 RBC 3.87 10^6/uL (3.85-5.65) 10/04/25 06:18 Hgb 11.60 g/dL (11.27-16.99) 10/04/25 06:18 Hct 35.4 % (37-53) L 10/04/25 06:18 MCV 91.5 fl (82-101) 10/04/25 06:18 MCH 30.0 pg (27-33) 10/04/25 06:18 MCHC 32.8 g/dL (30-55) 10/04/25 06:18 RDW 13.7 % (12.1-15.1) 10/04/25 06:18 Plt Count 203 10^3/cmm (157-399) 10/04/25 06:18 MPV 10.4 fL (7.4-10.4) 10/04/25 06:18 Neut % (Auto) 61.7 % 10/04/25 06:18 Lymph % (Auto) 24.6 % 10/04/25 06:18 [place] % (Auto) 7.5 % 10/04/25 06:18 Eos % (Auto) 5.5 % 10/04/25 06:18 Baso % (Auto) 0.3 % 10/04/25 06:18 Neut # (Auto) 4.38 10^3/uL (1.8-7.7) 10/04/25 06:18 Lymph # (Auto) 1.8 10^3/uL (0.8-4.8) 10/04/25 06:18 Crook # (Auto) 0.5 10^3/uL (0.2-0.9) 10/04/25 06:18 Eos # (Auto) 0.4 10^3/uL (0.0-0.8) 10/04/25 06:18 Baso # (Auto) 0.0 10^3/uL (0.0-0.1) 10/04/25 06:18 Nucleated RBC % (auto) 0 % 10/04/25 06:18 Nucleated RBCs # 0.0 /100WBC 10/04/25 06:18 Sodium 138 mmol/L (136-145) 10/05/25 05:42 Potassium 4.2 mmol/L (3.5-5.1) 10/05/25 05:42 Chloride 103 mmol/L (98-107) 10/05/25 05:42 Carbon Dioxide 20 mmol/L (22-29) L 10/05/25 05:42 Anion Gap 19.2 (5-19) H 10/05/25 05:42 BUN 15 mg/dL (8-23) 10/05/25 05:42 Creatinine 0.7 mg/dL (0.7-1.2) 10/05/25 05:42 GFR Calculation Not Reportable 10/05/25 05:42 Glucose 89 mg/dL (65-115) 10/05/25 05:42 Calculated Osmolality 286 mOsm/kg (285-295) 10/05/25 05:42 Lactic Acid 1.5 mmol/L (0.5-2.2) 10/01/25 10:55 Calcium 9.0 mg/dL (8.5-10.5) 10/05/25 05:42 Magnesium 1.5 mg/dL (1.7-2.3) L 10/05/25 05:42 Total Bilirubin 0.4 mg/dL (0.15-1.2) 10/04/25 06:18 AST 36 U/L (0-40) 10/04/25 06:18 ALT 44 U/L (0-41) H 10/04/25 06:18 Alkaline Phosphatase 203 U/L (40-130) H 10/04/25 06:18 Troponin T Baseline 96 ng/L (0-15) H 10/01/25 10:55 Troponin T 60 Minute 77.76 ng/L (0-15) H 10/01/25 12:00 Delta Troponin T -18.24 ABS# (0-10) L 10/01/25 12:00 Troponin T Hi Sens 6Hr 79.21 ng/L (0-15) H 10/01/25 16:58 Troponin T Hi Sens 6Hr Delta -16.79 ng/L (0-12) L 10/01/25 16:58 C-Reactive Protein 41.8 mg/L (0.0-4.9) H 10/01/25 10:55 Total Protein 5.4 g/dL (6.6-8.7) L 10/04/25 06:18 Albumin 3.0 g/dL (3.5-5.2) L 10/04/25 06:18 Globulin 2.4 g/dL (1.3-4.6) 10/04/25 06:18 Triglycerides 99 mg/dL (0-150) 10/02/25 03:36 Cholesterol 107 mg/dL (0-200) 10/02/25 03:36 LDL Cholesterol, Calc 59 mg/dL (50-129) 10/02/25 03:36 HDL Cholesterol 28 mg/dL (60-100) L 10/02/25 03:36 LDL/HDL Ratio 2.11 RATIO (0.00-3.22) 10/02/25 03:36 Cholesterol/HDL Ratio 3.82 mg/dL (1.0-5.00) 10/02/25 03:36 Procalcitonin 0.11 ng/mL (0-0.5) 10/01/25 10:55 TSH 2.43 uIU/mL (0.27-4.20) 10/01/25 10:55 Urine Color Yellow (Yellow) 10/01/25 11:55 Urine Appearance Clear (CLEAR) 10/01/25 11:55 Urine pH 6.0 (5-7) 10/01/25 11:55 Ur Specific [place] 1.015 (1.005-1.030) 10/01/25 11:55 Urine Protein Negative (Negative) 10/01/25 11:55 Urine Glucose (UA) Negative (Normal) 10/01/25 11:55 Urine Ketones Trace (Negative) 10/01/25 11:55 Urine Blood 2+ (Negative) A 10/01/25 11:55 Urine Nitrate Negative (Negative) 10/01/25 11:55 Urine Bilirubin Negative (Negative) 10/01/25 11:55 Urine Urobilinogen 1.0 mg/dL (Negative) 10/01/25 11:55 Ur Leukocyte Esterase 2+ (Negative) A 10/01/25 11:55 Urine RBC 21-50 /hpf (0-2) H 10/01/25 11:55 Urine WBC 21-50 /hpf (0-5) H 10/01/25 11:55 Ur Squamous Epith Cells 0-5 /hpf (0-5) 10/01/25 11:55 Amorphous Sediment Not Reportable 10/01/25 11:55 Urine Bacteria None seen /hpf (NONE) 10/01/25 11:55 Hyaline Casts 8.67 /lpf 10/01/25 11:55 Influenza A (PCR) Negative (Negative) 10/01/25 11:11 Influenza Type B (PCR) Negative (Negative) 10/01/25 11:11 RSV (PCR) Negative (Negative) 10/01/25 11:11 SARS-CoV-2 (PCR) Positive (Negative) A 10/01/25 11:11 Vitals Last Vital Signs Temp 98.3 F 10/05/25 15:00 Pulse 84 10/05/25 15:00 Resp 17 10/05/25 15:00 BP 133/67 10/05/25 15:00 Pulse Ox 94 10/05/25 15:00 O2 Del Method Room Air 10/05/25 15:00 Discharge Plan Discharge Patient Disposition: Xfer SNF Condition: Stable Prescriptions: New finasteride 5 mg Tablet 5 mg PO BEDTIME 60 Days Qty: 60 0RF magnesium L-lactate [Magtab] 84 mg Tablet Extended Release 84 mg PO DAILY 10 Days Qty: 10 0RF Paxlovid 150 mg (10)- 100 mg (10) tablets,dose pack See Rx Instructions .ROUTE .COMPLEX MDD for 2 days only 2 Days Qty: 20 0RF Rx Instructions: take ONE 150 mg tablet of nirmatrelvir with ONE 100 mg tablet of ritonavir twice daily for 5 days levofloxacin 250 mg/10 mL solution 750 mg PO DAILY 3 Days Qty: 480 0RF Continued paroxetine HCl 10 mg tablet 10 mg PO DAILY aspirin [Adult Low Dose Aspirin] 81 mg tablet,delayed release (DR/EC) 81 mg PO DAILY ascorbic acid (vitamin C) 500 mg tablet 500 mg PO DAILY folic acid 1 mg tablet 1 mg PO DAILY (DME) right medial supervisor of way brace See Rx Instructions .Route .MEDSUPPLY Qty: 1 0RF Rx Instructions: As directed levothyroxine 25 mcg tablet 25 mcg PO DAILY@0700 multivitamin Tablet 1 tab PO QAM polyethylene glycol 3350 [Miralax] 17 gram/dose Powder 17 g PO DAILY acetaminophen 325 mg Tablet 650 mg PO Q7H PRN (Reason: Pain) hydrocodone-acetaminophen 5-325 mg tablet 1 tab PO Q7H PRN (Reason: Pain) magnesium hydroxide [Milk of Magnesia] 400 mg/5 mL Suspension 30 ml PO DAILY PRN (Reason: Constipation) tamsulosin 0.4 mg capsule 0.4 mg PO BEDTIME bisacodyl 10 mg Suppository 10 mg [place] DAILY PRN (Reason: Constipation) Fleet Enema 19-7 gram/118 mL Enema 118 ml KY Q8H PRN (Reason: Constipation) famotidine 20 mg tablet 20 mg PO BID losartan 25 mg tablet 25 mg PO DAILY metoprolol tartrate 25 mg tablet 12.5 mg PO BID atorvastatin 20 mg Tablet 20 mg PO DAILY@0700 60 Days Qty: 60 0RF Discontinued diclofenac sodium 50 mg tablet,delayed release (DR/EC) 50 mg PO DAILY Discharge Order = DC NOW: Discharge Order (Routine); Ordered 10/05/25 Ordered By: Jackie Martin Referrals: [facility] [place] [Outside] Satya Bright MD [Primary Care Provider, Family Practice] Discharge Diet: Cardiac and Low Salt Discharge Activity: Limit activity as instructed Patient Instructions: Finasteride (By mouth), Levofloxacin (By mouth) (Levaquin, Levaquin Leva-ranjeet), Nirmatrelvir/Ritonavir (By mouth), Altered Mental Status (ED), Opioid Safety, Patient Portal & Nicolette Instructions Discharge Attestations Time Spent in Discharge Care*: greater than 30 min Specific Discharge Activities: educating patient, educating and/or supporting family/caregiver, discussing with pcp/other providers, discussing with complex case manager/social workers/dc planners, documenting/other paperwork and evaluating patient/reviewing data Status at Discharge: Cognitive status at discharge: moderately impaired cognition , Behavioral status at discharge: dependent in ADL's , Functional status at discharge: other assisted ambulation , Overall status at discharge: patient is progressing back to baseline Quality Metrics Clinical Quality Measures [ No reported AMI, CVA or VTE this stay] Coding Level of Care Code Acute Code for Chg Fwd Diagnoses Delirium due to another medical condition F05 Acute metabolic encephalopathy G93.41 Acute cystitis without hematuria N30.00 Hematuria presence: without hematuria Urinary tract infection type: acute cystitis COVID-19 U07.1 Hyperkalemia E87.5 Transaminitis R74.01 Dehydration E86.0 Hypothyroidism E03.9 Hyperlipidemia E78.5 Hypertension I10 Hypomagnesemia E83.42
== END 2025-10-05 15:40 | disposition skilled nursing facility (03) | DRG 177 ==
LOC: ER 12:23 → MEDSURG 13:36
PROVIDERS: Admitting Provider Internal Medicine; Emergency Provider Emergency Medicine; PCP Family Medicine; Visit Provider Student in an Organized Health Care Education/Training Program
DX: U07.1 COVID-19 (principal); G93.41 Metabolic encephalopathy; N30.00 Acute cystitis without hematuria; F32.A Depression, unspecified; I10 Essential (primary) hypertension; E78.5 Hyperlipidemia, unspecified; N40.0 Benign prostatic hyperplasia without lower urinary tract symptoms; E03.9 Hypothyroidism, unspecified; I45.10 Unspecified right bundle-branch block; R74.01 Elevation of levels of liver transaminase levels; E87.5 Hyperkalemia; N28.9 Disorder of kidney and ureter, unspecified; I73.9 Peripheral vascular disease, unspecified; I25.10 Atherosclerotic heart disease of native coronary artery without angina pectoris; E86.0 Dehydration; F03.90 Unspecified dementia, unspecified severity, without behavioral disturbance, psychotic disturbance, mood disturbance, and anxiety; E83.42 Hypomagnesemia; Z79.899 Other long term (current) drug therapy; Z79.890 Hormone replacement therapy; Z79.82 Long term (current) use of aspirin; Z95.1 Presence of aortocoronary bypass graft; Z87.891 Personal history of nicotine dependence
CPT/HCPCS: 36415; 51702; 51798; 71045; 74176; 80048; 80053; 80061; 81001; 83605; 83735; 84145; 84443; 84484; 85025; 86140; 87040; 87077; 87086; 87150; 87186; 87205; 87637; 93005; 96365; 96372; 96375; 99285; J0248; J0696; J1630; J1650; J2020; J2185; J3475; J7030; J7040; J9999